=== PATIENT | male | born 1955 | race Hispanic/Latino ===

== ENCOUNTER 2018-04-03 19:49 | Emergency (ER) | payer SELFPAY ==
[2018-04-03] MEDS ORDERED: KETOROLAC 30 MG/ML INJ ONE (20:39)
[2018-04-03] MEDS ORDERED: NA CHLORIDE 0.9% 1,000 ML ONE (20:39)
[2018-04-03 21:08] LABS: Absolute Lymphocytes (CBC) 0.7 K/uL (0.7-4.9); Absolute Monocytes 0.7 K/uL (0.1-1.3); Absolute Neutrophil 15.6 K/uL (1.8-8.0); Basophils % 0.2 % (0-1.3); Hematocrit 46.1 % (39.6-49.0); MCV 86.6 fL (80-100); MPV 7.3 fL (7.6-11.3); Monocytes % 4.1 % (3.3-12.3); RBC Red Blood Cell Count 5.33 M/uL (4.33-5.43)
[2018-04-03 21:12] LABS: Potassium 3.7 mEq/L (3.6-5.0)
[2018-04-03 21:15] LABS: Bilirubin Total 0.7 mg/dL (0.3-1.2); Protein, Total 6.8 g/dL (6.0-8.3)
[2018-04-03 21:41] LABS: Urine White Blood Cell Casts OK
[2018-04-03 21:42] LABS: Blood Morphology Comment NOT SEEN (NOT SEEN); Platelet Estimate ADEQ
[2018-04-03 21:55] LABS: Urine Blood TRACE (NEG); Urine Glucose NEGATIVE (NEG); Urine Protein TRACE (NEG); Urine Specific Gravity >1.030 (1.005-1.030); Urine pH 5.5 (5.0-7.0)
--- NOTE | 2018-04-03 22:49 | ER ---
Nurse's Notes 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 He says he has pain in his neck and his stomach.". Transition of care: patient was not received from another setting of care. Onset of symptoms was April 03, 2018 at 16:00. Risk Assessment: Do you want to hurt yourself or someone else? Patient reports no desire to harm self or others. Initial Sepsis Screen: Does the patient meet any 2 criteria? No. Patient's initial sepsis screen is negative. Does the patient have a suspected source of infection? No. Patient's initial sepsis screen is negative. Care prior to arrival: None. 20:20 Method Of Arrival: Ambulatory lk1 20:20 Acuity: ZAHRA 3 lk1 Historical: - Allergies: 20:22 No Known Allergies; lk1 - PMHx: 20:22 None; lk1 - PSHx: 20:22 neck surgery; lk1 - Immunization history:: Adult Immunizations up to date. - Social history:: Smoking status: Patient/guardian denies using tobacco. Screenin:35 Abuse screen: Denies threats or abuse. Nutritional screening: No deficits noted. ea Tuberculosis screening: No symptoms or risk factors identified. Fall Risk None identified. Assessment: 20:35 General: Appears in no apparent distress. Behavior is calm, cooperative, appropriate ea for age. Pain: Complains of pain in headache Pain currently is 8 out of 10 on a pain scale. Quality of pain is described as aching. Neuro: Level of Consciousness is awake, alert, obeys commands, Oriented to person, place, time, situation, Electrician Master are equal bilaterally. Cardiovascular: Heart tones S1 S2 present Patient's skin is warm and dry. Respiratory: Airway is patent Respiratory effort is even, unlabored, Respiratory pattern is regular, symmetrical, Breath sounds are clear bilaterally. GI: No signs and/or symptoms were reported involving the gastrointestinal system. : No signs and/or symptoms were reported regarding the genitourinary system. EENT: No signs and/or symptoms were reported regarding the EENT system. Derm: Skin is dry, Skin is normal, Skin temperature is warm. Musculoskeletal: No signs and/or symptoms reported regarding the musculoskeletal system. 22:39 Reassessment: Patient and/or family updated on plan of care and expected duration. Pain ea level reassessed. Patient is alert, oriented x 3, equal unlabored respirations, skin warm/dry/pink. Patient denies pain at this time. Patient states feeling better. Patient states symptoms have improved. 23:07 Reassessment: Patient and/or family updated on plan of care and expected duration. Pain ea level reassessed. Patient is alert, oriented x 3, equal unlabored respirations, skin warm/dry/pink. Discharge instructions given to patient, verbalized the understanding of instructions. Patient denies pain at this time. Patient states feeling better. Patient states symptoms have improved. Vital Signs: 20:22 BP 112 / 77; Pulse 93; Resp 16; Temp 98.0(TE); Pulse Ox 99% on R/A; Weight 104.33 kg lk1 (R); Height 5 ft. 10 in. (177.80 cm) (R); Pain 8/10; 21:00 BP 129 / 86; Pulse 85; Resp 18; Pulse Ox 98% on R/A; Pain 0/10; ea 22:14 BP 121 / 79; Pulse 73; Resp 18; Pulse Ox 97% on R/A; Pain 0/10; ea 23:08 BP 113 / 78; Pulse 76; Resp 18; Temp 97.2(O); Pulse Ox 99% on R/A; Pain 0/10; ea 20:22 Body Mass Index 33.00 (104.33 kg, 177.80 cm) lk1 ED Course: 19:50 Patient arrived in ED. am2 20:21 Triage completed. lk1 20:24 Arm band placed on right wrist. lk1 20:26 Lamberto Orona MD is Attending Physician. tw4 20:28 Nilda Vilchis, DANIELA is Primary Nurse. ea 20:35 Patient has correct armband on for positive identification. Bed in low position. Call ea light in reach. Side rails up X2. 20:40 Initial lab(s) drawn, by me, sent to lab. Inserted saline lock: 18 gauge in right ea antecubital area, using aseptic technique. Blood collected. 23:07 No provider procedures requiring assistance completed. IV discontinued, intact, ea bleeding controlled, No redness/swelling at site. Pressure dressing applied. Administered Medications: 20:40 Drug: NS 0.9% 1000 ml Route: IV; Rate: 1 bolus; Site: right antecubital; ea 23:09 Follow up: Response: No adverse reaction; IV Status: Completed infusion; IV Intake: ea 1000ml 20:40 Drug: TORadol 30 mg Route: IVP; Site: right antecubital; ea 22:13 Follow up: Response: No adverse reaction; Pain is decreased ea 20:57 Drug: NS 0.9% 1000 ml Route: IV; Rate: 1 bolus; Site: right antecubital; ea 22:00 Follow up: Response: No adverse reaction; IV Status: Completed infusion; IV Intake: ea 1000ml Intake: 22:00 IV: 1000ml; Total: 1000ml. ea 23:09 IV: 1000ml; Total: 2000ml. ea Outcome: 22:48 Discharge ordered by twAndreia 23:08 Discharged to home ambulatory, with family. ea 23:08 Condition: improved 23:08 Discharge instructions given to patient, Instructed on discharge instructions, follow up and referral plans. Demonstrated understanding of instructions, follow-up care. 23:09 Patient left the ED. ea Signatures: Daphney Casey, RN RN Lashon Ambriz Elena, RN Lamberto Bowman ea, MD MD tw4
--- NOTE | 2018-04-03 22:49 | EDPHYS ---
Physician Documentation [facility] Unit Name: Rl Day Age: 62 yrs Sex: Male : 1955 Arrival Date: 04/03/2018 Time: 19:50 Bed 14 Private MD: ED Physician Lamberto Orona HPI: 04/03 22:56 This 62 yrs old Male presents to ER via Ambulatory with complaints of Heat tw4 Exposure. 22:56 Type of Exposure: heat. Context: The problem was sustained outdoors. Onset: The tw4 symptoms/episode began/occurred today. Symptoms: leg cramping. The patient has not experienced similar symptoms in the past. Historical: - Allergies: 20:22 No Known Allergies; lk1 - PMHx: 20:22 None; lk1 - PSHx: 20:22 neck surgery; lk1 - Immunization history:: Adult Immunizations up to date. - Social history:: Smoking status: Patient/guardian denies using tobacco. ROS: 22:56 Constitutional: Negative for fever, chills, and weight loss, Cardiovascular: Negative tw4 for chest pain, palpitations, and edema, Respiratory: Negative for shortness of breath, cough, wheezing, and pleuritic chest pain, Abdomen/GI: Negative for abdominal pain, nausea, vomiting, diarrhea, and constipation, Skin: Negative for injury, rash, and discoloration, Neuro: Negative for headache, weakness, numbness, tingling, and seizure, Psych: Negative for depression, anxiety, suicide ideation, homicidal ideation, and hallucinations. Exam: 22:56 Constitutional: This is a well developed, well nourished patient who is awake, alert, tw4 and in no acute distress. Head/Face: Normocephalic, atraumatic. ENT: Nares patent. No nasal discharge, no septal abnormalities noted. Tympanic membranes are normal and external auditory canals are clear. Oropharynx with no redness, swelling, or masses, exudates, or evidence of obstruction, uvula midline. Mucous membranes moist. Chest/axilla: Normal chest wall appearance and motion. Nontender with no deformity. No lesions are appreciated. Cardiovascular: Regular rate and rhythm with a normal S1 and S2. No gallops, murmurs, or rubs. Normal PMI, no JVD. No pulse deficits. Respiratory: Lungs have equal breath sounds bilaterally, clear to auscultation and percussion. No rales, rhonchi or wheezes noted. No increased work of breathing, no retractions or nasal flaring. Abdomen/GI: Soft, non-tender, with normal bowel sounds. No distension or tympany. No guarding or rebound. No evidence of tenderness throughout. Back: No spinal tenderness. No costovertebral tenderness. Full range of motion. MS/ Extremity: Pulses equal, no cyanosis. Neurovascular intact. Full, normal range of motion. Neuro: Awake and alert, GCS 15, oriented to person, place, time, and situation. Cranial nerves II-XII grossly intact. Motor strength 5/5 in all extremities. Sensory grossly intact. Cerebellar exam normal. Normal gait. Vital Signs: 20:22 BP 112 / 77; Pulse 93; Resp 16; Temp 98.0(TE); Pulse Ox 99% on R/A; Weight 104.33 kg lk1 (R); Height 5 ft. 10 in. (177.80 cm) (R); Pain 8/10; 21:00 BP 129 / 86; Pulse 85; Resp 18; Pulse Ox 98% on R/A; Pain 0/10; ea 22:14 BP 121 / 79; Pulse 73; Resp 18; Pulse Ox 97% on R/A; Pain 0/10; ea 23:08 BP 113 / 78; Pulse 76; Resp 18; Temp 97.2(O); Pulse Ox 99% on R/A; Pain 0/10; ea 20:22 Body Mass Index 33.00 (104.33 kg, 177.80 cm) [facility] MDM: 20:26 Patient medically screened. [facility] 22:56 Data reviewed: vital signs, nurses notes. Counseling: I had a detailed discussion with [facility] the patient and/or guardian regarding: the historical points, exam findings, and any diagnostic results supporting the discharge/admit diagnosis, lab results. Medication response: IVF hydration. Response to treatment: the patient's symptoms have resolved after treatment, the patient's condition has returned to base line, and as a result, I will discharge patient. Special discussion: I discussed with the patient/guardian in detail that at this point there is no indication for admission to the hospital. It is understood, however, that if the symptoms persist or worsen the patient needs to return immediately for re-evaluation. 04/03 20:36 Order name: CBC with Diff; Complete Time: 21:52 tw4 04/03 21:52 Interpretation: Normal except: WBC 17.2; MPV 7.3; HUNG% 90.7; LYM% 4.0; NEUT A 15.6. tw4 04/03 20:36 Order name: CMP; Complete Time: 21:52 tw4 04/03 21:52 Interpretation: Normal except: GLUC 164; BUN 30; GFR 73. tw4 04/03 21:39 Order name: Urine Dipstick--Ancillary (enter results) rg2 04/03 21:42 Order name: CBC Smear Scan; Complete Time: 21:52 EDMS Administered Medications: 20:40 Drug: NS 0.9% 1000 ml Route: IV; Rate: 1 bolus; Site: right antecubital; ea 23:09 Follow up: Response: No adverse reaction; IV Status: Completed infusion; IV Intake: ea 1000ml 20:40 Drug: TORadol 30 mg Route: IVP; Site: right antecubital; ea 22:13 Follow up: Response: No adverse reaction; Pain is decreased ea 20:57 Drug: NS 0.9% 1000 ml Route: IV; Rate: 1 bolus; Site: right antecubital; ea 22:00 Follow up: Response: No adverse reaction; IV Status: Completed infusion; IV Intake: ea 1000ml Disposition: 04/03/18 22:48 Discharged to Home. Impression: Exposure to excessive natural heat, Dehydration. - Condition is Stable. - Discharge Instructions: Dehydration, Adult, Heat-Related Illness. - Work release form, Medication Reconciliation Form, Thank You Letter, Antibiotic Education, Prescription Opioid Use form. - Follow up: Private Physician; When: As needed; Reason: Recheck today's complaints, Continuance of care, Re-evaluation by your physician. - Problem is new. - Symptoms have improved. Signatures: Dispatcher [employer] EDDaphney Alcala RN RN lk1 Nilda Vilchis RN RN ea Wadley, Terrence, MD MD tw4 Corrections: (The following items were deleted from the chart) 23:09 22:48 04/03/2018 22:48 Discharged to Home. Impression: Exposure to excessive natural ea heat; Dehydration. Condition is Stable. Forms are Medication Reconciliation Form, Thank You Letter, Antibiotic Education, Prescription Opioid Use. Follow up: Private Physician; When: As needed; Reason: Recheck today's complaints, Continuance of care, Re-evaluation by your physician. Problem is new. Symptoms have improved. tw4
== END 2018-04-03 23:09 | disposition home or self-care (01) ==
LOC: ER 19:49
DX: E86.0 Dehydration (principal); X30.XXXA Exposure to excessive natural heat, initial encounter; Y93.9 Activity, unspecified; Y92.89 Other specified places as the place of occurrence of the external cause
CPT/HCPCS: 36415; 80053; 81003; 85025; 96361; 96374; 99284; J7030

== ENCOUNTER 2024-02-15 19:37 | Emergency (ER) | payer OTHER, SELFPAY ==
--- OUTSIDE RECORDS SUMMARY | 2024-02-15 19:42 | XMS REPORT | Continuity of Care Document ---
Author Name Unknown Address [address] [place] [address] [facility] Address [address] [place] [address] Care Team Providers Care Clipper And Turner Name Role Phone PCP, PATIENT DOES NOT HAVE A Primary Care Physic sabiha Unavailable CLAUDINE SHAFER Attending Clinician Unavailable Claudine Shafer MD Attending Clinician [phone] Doctor Unassigned, Old Agency Attending Clinician U MARIELA Saucedo Attending Clinician UnavailMariela Bailey Attending Clinician [phone] [facility] Main Attending Clinician UnavailAMALIA Castellanos Attending Clinician Amalia Jones MD Attending Clinician +- [phone] Emily Hernandez MD Attending Clinician [phone] [facility] Surg Spec Procedure Attending Clinician Unavailable EMILY HERNANDEZ Attending Clinician Unavailable AMALIA TERESA Admitting Clinician Amalia Jones MD Admitting Clinician +- [phone] Payers Payer Name Policy Type Policy Number Effective Date Expirati on Date Source [employer] MED[employer]ARE [employer]VANTAGE [id number] 2022 00:00:00 Problems Condition Name Condition Details Condition Category Status Onset Date Resolution Date Last Treatment Date Treating Clinician Comments Source No known active problems No known active problems Disease [facility] Allergies, Adverse Reactions, Alerts Allergy Name Allergy Type Status Severity Reaction(s) Onset Date Inactive Date Treating Clinician Comments Source NO KNOWN ALLERGIE S Drug Class Active [facility] Social History Social Habit Start Date Stop Date Quantity Comments Source History of tobacco use Current smoker [facility] Gender identity [facility] Sexual orientation [facility] Exposure to SARS-CoV-2 (event) 2023-03-25 00:00:00 2023-04-04 13:11:00 Not sure [facility] History of Social function 2023-01-06 00:00:00 2023-01-06 00:00:00 [facility] Tobacco use and exposure 2022-04-05 00:00:00 2022-04-05 00:00:00 Smokeless tobacco non-user [facility] Sex Assigned At 1955 00:00:00 1955 00:00:00 [facility] Smoking Status Start Date Stop Date Source Ex-smoker 2022-04-05 00:00:00 2022-04-05 00:00:00 [facility] Medications Ordered Medication Name Filled Medication Name Start Date Stop Date Current Medication? Ordering Clinician Indication Dosage Frequency Signature (SIG) Comments Components Source phenylephri ne (VAZCULEP) injection 0.2 mg 2022-11 22:15: 00 09-20 22:04 :00 No [id number] .2mg [facility] alprostadiL (EDEX) injection 25 mcg 2022-11 22:15: 00 09-20 22:04 :00 No [id number] 25ug [facility] phenylephri ne (VAZCULEP) injection 0.2 mg 2022-11 22:15: 00 09-20 22:04 :00 No [id number] 200ug 0.2 mg (200 mcg), Intravenou s, ONCE, 1 dose, On Tue09/20/23 at 1615, Routine [facility] mirabegron (MYRBETRIQ) 25 mg tablet 04-04 00:00: 00 Yes [id number] 25mg Take 1 tablet by mouth in the morning. [facility] prednisoLON E acetate 1 % ophthalmic suspension drops 4-29 00:00: 00 Yes INSTILL 1 DROP INTO RIGHT EYE EVERY 6 HOURS WHILE AWAKE [facility] erythromyci n 5 mg/gram (0.5 %) ophthalmic ointment 331 00:00: 00 Yes APPLY A SMALL AMOUNT INTO RIGHT EYE EVERY 4 HOURS [facility] moxifloxaci n 0.5 % ophthalmic drops 330 00:00: 00 Yes INSTILL 1 DROP INTO RIGHT EYE EVERY 2 HOURS [facility] tamsulosin (FLOMAX) 0.4 mg 24 hr capsule 01-10 00:00: 00 Yes [id number] 01 .4mg Take 1 capsule by mouth in the morning. [facility] oxybutynin 10 mg 24 hr tablet 01-10 00:00: 00 04-04 00:00 :00 No [id number] 10mg Take 1 tablet by mouth in the morning. [facility] ketorolac 0.5 % ophthalmic solution 01-07 00:00: 00 Yes INSTILL1 DROP INTO LEFT EYE DAILY FOR 2 WEEKS [facility] lactated ringers IV infusion 1,000 mL 01-06 18:45: 00 01-06 21:21 :04 No 1000mL at 50 mL/hr, 1,000 mL, IV Infusion, CONTINUOUS , Starting on Carine 01/06/23 at 1245, Until Carine 01/06/23 at 1521, Routine, PACU [facility] ondansetron (ZOFRAN (PF)) injection 4 mg 01-06 18:41: 22 01-06 21:21 :04 No 4mg 4 mg, Slow IV Push, PRN, 1 dose, Starting on Carine 01/06/23 at 1241, Until Carine 223 at 1521, Routine, Nausea and Vomiting (N/V), PACU [facility] neomycin-po lymyxin-dex amethasone (MAXITROL) 3.5 mg/g-10,000 unit/g-0.1 % ophthalmic ointment 01-06 18:07: 00 01-06 18:25 :28 No PRN, Starting on Carine 01/06/23 at 1207, Until Carine 01/06/23 at 1225, Routine, Intra-op [facility] tetracaine (PONTOCAINE ) 0.5 % ophthalmic drops 01-06 18:04: 00 01-06 18:25 :28 No PRN, Starting on Carine 01/06/23 at 1204, Until Carine 01/06/23 at 1225, Routine, Intra-op [facility] eye block syringe 11 mL 01-06 18:03: 00 01-06 18:25 :28 No PRN, Starting on Carine 01/06/23 at 1203, Until Carine 01/06/23 at 1225, Intra-op [facility] gentamicin injection 01-06 18:03: 00 01-06 18:25 :28 No PRN, Starting on Carine 01/06/23 at 1203, Until Carine 01/06/23 at 1225, ELLIOTT, Intra-op [facility] NaCl 0.9% (NS) injection 01-06 18:02: 00 01-06 18:25 :28 No PRN, Starting on Carine 01/06/23 at 1202, Until Carine 01/06/23 at 1225, Routine, Intra-op [facility] water for irrigation irrigation solution 01-06 18:02: 00 01-06 18:25 :28 No PRN, Starting on Carine 01/06/23 at 1202, Until Carine 01/06/23 at 1225, Routine, Intra-op [facility] EPINEPHrine (PF) 1:1,000 (1 mg/mL) (ADRENALIN (PF)) injection 01-06 18:00: 00 01-06 18:25 :28 No PRN, Starting on Carine 01/06/23 at 1200, Until Carine 2/23/23 at 1225, Routine, Intra-op [facility] chondroitin sulf-sod hyaluronate (DUOVISC VISCO ELASTIC) intraocular injection 01-06 17:59: 00 01-06 18:25 :28 No PRN, Starting on Carine 01/06/23 at 1159, Until Carine 01/06/23 at 1225, Routine, Intra-op [facility] dexamethaso ne (DECADRON PHOSPHATE) injection 01-06 17:59: 00 01-06 18:25 :28 No PRN, Starting on Carine 01/06/23 at 1159, Until Carine 01/06/23 at 1225, Routine, Intra-op [facility] ceFAZolin (ANCEF) injection 01-06 17:59: 00 01-06 18:25 :28 No PRN, Starting on Carine 01/06/23 at 1159, Until Carine 01/06/23 at 1225, ELLIOTT, Intra-op [facility] balanced salt soln no.2 irrig. (BSS) ophthalmic solution 01-06 17:58: 00 01-06 18:25 :28 No PRN, Starting on Carine 01/06/23 at 1158, Until Carine 01/06/23 at 1225, Routine, Intra-op [facility] cyclopent 1%-tropic 1%-phenyl 2.5%-ketor 0.5% (MYDRIATIC #5) ophthalmic solution syringe 0.5 mL 01-06 17:45: 00 01-06 16:49 :00 No .5mL 0.5 mL, Left Eye, ONCE, 1 dose, On Carine 01/06/23 at 1145, Routine, DSU Pre-op [facility] tadalafiL (CIALIS) 20 mg tablet 2021-11 00:00: 00 Yes [id number] 20mg Take 1 tablet by mouth as needed for Erectile dysfunctio n (2 hrs prior to sexual activity, 2-3 times/week ). [facility] oxybutynin chloride 5 mg tablet 2022-1 1-17 00:00: 00 01-10 00:00 :00 No [id number] 5mg Take 1 tablet by mouth in the morning and 1 tablet in the evening. Do all this for 120 days. [facility] tamsulosin (FLOMAX) 0.4 mg 24 hr capsule 03-08 00:00: 00 01-10 23:49 :19 No [id number] 01 .4mg Take 1 capsule by mouth daily. [facility] Immunizations Ordered Immunization Name Filled Immunization Name Date Status Comments Source SARS-COV-2 COVID-19 PFIZER VACCINE 2021-02-19 00:00:00 Completed [facility] SARS-COV-2 COVID-19 PFIZER VACCINE 2021-02-19 00:00:00 Completed [facility] SARS-COV-2 COVID-19 PFIZER VACCINE 2021-02-19 00:00:00 Completed [facility] SARS-COV-2 COVID-19 PFIZER VACCINE 2021-02-19 00:00:00 Completed [facility] SARS-COV-2 COVID-19 PFIZER VACCINE 2021-02-19 00:00:00 Completed [facility] SARS-COV-2 COVID-19 PFIZER VACCINE 2021-02-19 00:00:00 Completed [facility] SARS-COV-2 COVID-19 PFIZER VACCINE 2021-02-19 00:00:00 Completed [facility] SARS-COV-2 COVID-19 PFIZER VACCINE 2021-02-19 00:00:00 Completed [facility] SARS-COV-2 COVID-19 PFIZER VACCINE 2021-02-19 00:00:00 Completed [facility] SARS-COV-2 COVID-19 PFIZER VACCINE 2021-02-19 00:00:00 Completed [facility] SARS-COV-2 COVID-19 PFIZER VACCINE 2021-02-19 00:00:00 Completed [facility] SARS-COV-2 COVID-19 PFIZER VACCINE 2021-02-19 00:00:00 Completed [facility] SARS-COV-2 COVID-19 PFIZER VACCINE 2021-02-19 00:00:00 Completed [facility] SARS-COV-2 COVID-19 PFIZER VACCINE 2021-02-19 00:00:00 Completed [facility] SARS-COV-2 COVID-19 PFIZER VACCINE 2021-02-19 00:00:00 Completed [facility] SARS-COV-2 COVID-19 PFIZER VACCINE 2021-02-19 00:00:00 Completed [facility] SARS-COV-2 COVID-19 PFIZER VACCINE 2021-02-19 00:00:00 Completed [facility] SARS-COV-2 COVID-19 PFIZER VACCINE 2021-02-19 00:00:00 Completed [facility] SARS-COV-2 COVID-19 PFIZER VACCINE 2021-02-19 00:00:00 Completed [facility] SARS-COV-2 COVID-19 PFIZER VACCINE 2021-02-19 00:00:00 Completed [facility] SARS-COV-2 COVID-19 PFIZER VACCINE 2021-02-19 00:00:00 Completed [facility] SARS-COV-2 COVID-19 PFIZER VACCINE 2021-02-19 00:00:00 Completed [facility] SARS-COV-2 COVID-19 PFIZER VACCINE 2021-02-19 00:00:00 Completed [facility] SARS-COV-2 COVID-19 PFIZER VACCINE 2021-02-19 00:00:00 Completed [facility] SARS-COV-2 COVID-19 PFIZER VACCINE 2021-02-19 00:00:00 Completed [facility] SARS-COV-2 COVID-19 PFIZER VACCINE 2021-02-19 00:00:00 Completed [facility] SARS-COV-2 COVID-19 PFIZER VACCINE 2021-02-19 00:00:00 Completed [facility] SARS-COV-2 COVID-19 PFIZER VACCINE 2021-01-28 00:00:00 Completed [facility] SARS-COV-2 COVID-19 PFIZER VACCINE 2021-01-28 00:00:00 Completed [facility] SARS-COV-2 COVID-19 PFIZER VACCINE 2021-01-28 00:00:00 Completed [facility] SARS-COV-2 COVID-19 PFIZER VACCINE 2021-01-28 00:00:00 Completed [facility] SARS-COV-2 COVID-19 PFIZER VACCINE 2021-01-28 00:00:00 Completed [facility] SARS-COV-2 COVID-19 PFIZER VACCINE 2021-01-28 00:00:00 Completed [facility] SARS-COV-2 COVID-19 PFIZER VACCINE 2021-01-28 00:00:00 Completed [facility] SARS-COV-2 COVID-19 PFIZER VACCINE 2021-01-28 00:00:00 Completed [facility] SARS-COV-2 COVID-19 PFIZER VACCINE 2021-01-28 00:00:00 Completed [facility] SARS-COV-2 COVID-19 PFIZER VACCINE 2021-01-28 00:00:00 Completed [facility] SARS-COV-2 COVID-19 PFIZER VACCINE 2021-01-28 00:00:00 Completed [facility] SARS-COV-2 COVID-19 PFIZER VACCINE 2021-01-28 00:00:00 Completed [facility] SARS-COV-2 COVID-19 PFIZER VACCINE 2021-01-28 00:00:00 Completed [facility] SARS-COV-2 COVID-19 PFIZER VACCINE 2021-01-28 00:00:00 Completed [facility] SARS-COV-2 COVID-19 PFIZER VACCINE 2021-01-28 00:00:00 Completed [facility] SARS-COV-2 COVID-19 PFIZER VACCINE 2021-01-28 00:00:00 Completed [facility] SARS-COV-2 COVID-19 PFIZER VACCINE 2021-01-28 00:00:00 Completed [facility] SARS-COV-2 COVID-19 PFIZER VACCINE 2021-01-28 00:00:00 Completed [facility] SARS-COV-2 COVID-19 PFIZER VACCINE 2021-01-28 00:00:00 Completed [facility] SARS-COV-2 COVID-19 PFIZER VACCINE 2021-01-28 00:00:00 Completed [facility] SARS-COV-2 COVID-19 PFIZER VACCINE 2021-01-28 00:00:00 Completed [facility] SARS-COV-2 COVID-19 PFIZER VACCINE 2021-01-28 00:00:00 Completed [facility] SARS-COV-2 COVID-19 PFIZER VACCINE 2021-01-28 00:00:00 Completed [facility] SARS-COV-2 COVID-19 PFIZER VACCINE 2021-01-28 00:00:00 Completed [facility] SARS-COV-2 COVID-19 PFIZER VACCINE 2021-01-28 00:00:00 Completed [facility] SARS-COV-2 COVID-19 PFIZER VACCINE 2021-01-28 00:00:00 Completed [facility] SARS-COV-2 COVID-19 PFIZER VACCINE 2021-01-28 00:00:00 Completed [facility] SARS-COV-2 COVID-19 PFIZER VACCINE Unknown Completed [facility] SARS-COV-2 COVID-19 PFIZER VACCINE Unknown Completed [facility] SARS-COV-2 COVID-19 PFIZER VACCINE Unknown Completed [facility] SARS-COV-2 COVID-19 PFIZER VACCINE Unknown Completed [facility] SARS-COV-2 COVID-19 PFIZER VACCINE Unknown Completed [facility] SARS-COV-2 COVID-19 PFIZER VACCINE Unknown Completed [facility] SARS-COV-2 COVID-19 PFIZER VACCINE Unknown Completed [facility] SARS-COV-2 COVID-19 PFIZER VACCINE Unknown Completed [facility] SARS-COV-2 COVID-19 PFIZER VACCINE Unknown Completed [facility] SARS-COV-2 COVID-19 PFIZER VACCINE Unknown Completed [facility] SARS-COV-2 COVID-19 PFIZER VACCINE Unknown Completed [facility] SARS-COV-2 COVID-19 PFIZER VACCINE Unknown Completed [facility] SARS-COV-2 COVID-19 PFIZER VACCINE Unknown Completed [facility] SARS-COV-2 COVID-19 PFIZER VACCINE Unknown Completed [facility] SARS-COV-2 COVID-19 PFIZER VACCINE Unknown Completed [facility] SARS-COV-2 COVID-19 PFIZER VACCINE Unknown Completed [facility] SARS-COV-2 COVID-19 PFIZER VACCINE Unknown Completed [facility] SARS-COV-2 COVID-19 PFIZER VACCINE Unknown Completed [facility] SARS-COV-2 COVID-19 PFIZER VACCINE Unknown Completed [facility] SARS-COV-2 COVID-19 PFIZER VACCINE Unknown Completed [facility] Vital Signs Vital Name Observation Time Observation Value Comments S marlyn Systolic blood pressure 2023-09-20 20:53:00 134 mm[Hg] [facility] Diastolic blood pressure 2023-09-20 20:53:00 79 mm[Hg] [facility] Heart rate 2023-09-20 20:53:00 77 /min [facility] Respiratory rate 2023-09-20 20:53:00 18 /min [facility] Body height 2023-09-20 20:53:00 177.8 cm [facility] Body weight 2023-09-20 20:53:00 108.41 kg [facility] BMI 2023-09-20 20:53:00 34.29 kg/m2 [facility] Systolic blood pressure 2023-07-05 16:23:00 139 mm[Hg] [facility] Diastolic blood pressure 2023-07-05 16:23:00 81 mm[Hg] [facility] Heart rate 2023-07-05 16:23:00 69 /min [facility] Body temperature 2023-07-05 16:23:00 36.44 [facility] Respiratory rate 2023-07-05 16:23:00 18 /min [facility] Body height 2023-07-05 16:23:00 177.8 cm [facility] Body weight 2023-07-05 16:23:00 110.768 kg [facility] BMI 2023-07-05 16:23:00 35.04 kg/m2 [facility] Oxygen saturation in Arterial blood by Pulse oximetry 2023-07-05 16:23:00 95 /min [facility] Systolic blood pressure 2023-04-04 18:34:00 128 mm[Hg] [facility] Diastolic blood pressure 2023-04-04 18:34:00 90 mm[Hg] [facility] Heart rate 2023-04-04 18:34:00 83 /min [facility] Oxygen saturation in Arterial blood by Pulse oximetry 2023-04-04 18:34:00 92 /min [facility] Body temperature 2023-04-04 18:32:00 36.5 [facility] Respiratory rate 2023-04-04 18:32:00 18 /min [facility] Body weight 2023-04-04 18:32:00 109.77 kg [facility] BMI 2023-04-04 18:32:00 34.72 kg/m2 [facility] Systolic blood pressure 2023-01-10 22:43:00 153 mm[Hg] [facility] Diastolic blood pressure 2023-01-10 22:43:00 83 mm[Hg] [facility] Heart rate 2023-01-10 22:42:00 84 /min [facility] Body temperature 2023-01-10 22:42:00 36.67 [facility] Respiratory rate 2023-01-10 22:42:00 18 /min [facility] Body height 2023-01-10 22:42:00 177.8 cm [facility] Body weight 2023-01-10 22:42:00 106.142 kg [facility] BMI 2023-01-10 22:42:00 33.58 kg/m2 [facility] Systolic blood pressure 2023-01-06 18:47:00 159 mm[Hg] [facility] Diastolic blood pressure 2023-01-06 18:47:00 94 mm[Hg] [facility] Heart rate 2023-01-06 18:47:00 58 /min [facility] Respiratory rate 2023-01-06 18:47:00 12 /min [facility] Oxygen saturation in Arterial blood by Pulse oximetry 2023-01-06 18:47:00 97 /min [facility] Body temperature 2023-01-06 18:27:00 36.17 [facility] Body height 2022-12-29 20:00:00 177.8 cm [facility] Body weight 2022-12-29 20:00:00 95.255 kg [facility] BMI 2022-12-29 20:00:00 30.13 kg/m2 [facility] Systolic blood pressure 2023-01-06 18:47:00 159 mm[Hg] [facility] Diastolic blood pressure 2023-01-06 18:47:00 94 mm[Hg] [facility] Heart rate 2023-01-06 18:47:00 58 /min [facility] Respiratory rate 2023-01-06 18:47:00 12 /min [facility] Oxygen saturation in Arterial blood by Pulse oximetry 2023-01-06 18:47:00 97 /min [facility] Body temperature 2023-01-06 18:27:00 36.17 [facility] Body height 2022-12-29 20:00:00 177.8 cm [facility] Body weight 2022-12-29 20:00:00 95.255 kg [facility] BMI 2022-12-29 20:00:00 30.13 kg/m2 [facility] Systolic blood pressure 2022-10-14 20:02:00 145 mm[Hg] [facility] Diastolic blood pressure 2022-10-14 20:02:00 84 mm[Hg] [facility] Heart rate 2022-10-14 20:02:00 73 /min [facility] Body temperature 2022-10-14 20:02:00 36.83 [facility] Respiratory rate 2022-10-14 20:02:00 18 /min [facility] Body height 2022-10-14 20:02:00 177.8 cm [facility] Body weight 2022-10-14 20:02:00 105.053 kg [facility] BMI 2022-10-14 20:02:00 33.23 kg/m2 [facility] Oxygen saturation in Arterial blood by Pulse oximetry 2022-10-14 20:02:00 95 /min [facility] Systolic blood pressure 2022-09-30 21:29:00 138 mm[Hg] [facility] Diastolic blood pressure 2022-09-30 21:29:00 83 mm[Hg] [facility] Heart rate 2022-09-30 21:29:00 72 /min [facility] 2022-09-30 21:29:00 18 /min [facility] Body height 2022-09-30 21:29:00 177.8 cm [facility] Body weight 2022-09-30 21:29:00 107.321 kg [facility] BMI 2022-09-30 21:29:00 33.95 kg/m2 [facility] Oxygen saturation in Arterial blood by Pulse oximetry 2022-09-30 21:29:00 97 /min [facility] Systolic blood pressure 2022-09-30 19:51:00 138 mm[Hg] [facility] Diastolic blood pressure 2022-09-30 19:51:00 83 mm[Hg] [facility] Heart rate 2022-09-30 19:51:00 72 /min [facility] Body temperature 2022-09-30 19:51:00 36.61 [facility] Respiratory rate 2022-09-30 19:51:00 18 /min [facility] Body height 2022-09-30 19:51:00 177.8 cm [facility] Body weight 2022-09-30 19:51:00 107.321 kg [facility] BMI 2022-09-30 19:51:00 33.95 kg/m2 [facility] Oxygen saturation in Arterial blood by Pulse oximetry 2022-09-30 19:51:00 97 /min [facility] Systolic blood pressure 2022-04-05 15:20:00 122 mm[Hg] [facility] Diastolic blood pressure 2022-04-05 15:20:00 77 mm[Hg] [facility] Heart rate 2022-04-05 15:20:00 70 /min [facility] Res[facility] rate 2022-04-05 15:20:00 17 /min [facility] Body height 2022-04-05 15:20:00 177.8 cm [facility] Body weight 2022-04-05 15:20:00 107.956 kg [facility] BMI 2022-04-05 15:20:00 34.15 kg/m2 [facility] Oxygen saturation in Arterial blood by Pulse oximetry 2022-04-05 15:20:00 95 /min [facility] Procedures Procedure Date / Time Performed Performing Clinician Source PATIENT QUESTIONNAIRE 2023-09-20 06:01:00 Doctor Unassigned, Old Agency [facility] POCT URINALYSIS AUTO 2023-07-05 18:11:00 Mariela Jhaveri [facility] ASSIGNMENT OF BENEFITS 2023-04-04 18:09:55 Doctor Unassigned, Old Agency [facility] POCT URINALYSIS AUTO 2023-01-10 22:42:00 Mariela Jhaveri [facility] POCT URINALYSIS AUTO 2023-01-10 22:39:00 Mariela Jhaveri [facility] PHACOEMULSIFICATION OF CATARACT WITH INTRAOCULAR LENS IMPLANT 2023-01-06 17:52:00 Amalia Teresa [facility] ASSIGNMENT OF BENEFITS 2022-12-30 17:54:24 Doctor Unassigned, Old Agency [facility] MEDICAL RELEASE/CLEARANCE FORMS 2022-12-09 06:01:00 Doctor Unassigned, Old Agency [facility] POCT URINALYSIS AUTO 2022-10-14 19:58:00 eC Claudine [facility] POCT URINALYSIS AUTO 2022-09-30 23:16:00 Claudine Shafer [facility] DISCLOSURE AND CONSENT, MEDICAL AND SURGICAL PROCEDURES 2022-09-30 06:01:00 Doctor Unassigned, Old Agency [facility] INSURANCE CORRESPONDENCE 2022-04-15 05:01:00 Doctor Unassigned, Old Agency [facility] HB ECG ROUTINE & RHYTHM STRIP 2022-04-05 15:26:53 Emily Hernandez [facility] Encounters Start Date/Time End Date/Time Encounter Type Admission Type Attending Clinicians Care Facility Care Department Encounter ID Source 2021-12-09 12:42:27 Outpatient [facility] [id number] [facility] 2024-01-17 11:30:00 2024-01-17 11:30:00 Outpatient R [facility] [id number] [facility] 2023-12-20 11:30:00 2023-12-20 11:30:00 [id number] 2023-11-25 00:00:00 2023-11-25 00:00:00 Telephone Ce [facility] [id number] [facility] 2023-09-23 00:00:00 2023-09-23 00:00:00 Telephone [facility] [id number] [facility] 2023-09-20 14:30:00 2023-09-20 16:14:09 [facility] [id number] [facility] 2023-09-20 14:30:00 2023-09-20 16:14:09 Outpatient [facility] [id number] [facility] 2023-09-20 00:00:00 2023-09-20 00:00:00 Orders Only Doctor Unassigned, Old Agency [facility] [id number] [facility] 2023-08-31 14:00:00 2023-08-31 14:00:00 Outpatient [facility] [id number] [facility] 2023-07-05 11:30:00 2023-07-05 11:59:09 Outpatient R KARISSA JHAVERITNEY [facility] [id number] [facility] 2023-07-05 11:30:00 2023-07-05 11:59:09 Office Visit [facility] 1.2.840.114 350.1.13.10 4.2.7.2.686 [id number] [facility] 2023-04-04 13:45:00 2023-04-04 14:02:48 [facility] [id number] [facility] 2023-04-04 13:45:00 2023-04-04 14:02:48 Office Visit Ramón [facility] 1.2.840.114 350.1.13.10 4.2.7.2.686 [id number] [facility] 2023-04-04 00:00:00 2023-04-04 00:00:00 Orders Only Doctor Unassigned, Old Agency [facility] 1.2.840.114 350.1.13.10 4.2.7.2.686 [id number] [id number] [facility] 2023-01-10 16:30:00 2023-01-10 17:04:08 Outpatient R KARISSA JHAVERITNEY [facility] [id number] [facility] 2023-01-10 16:30:00 2023-01-10 17:04:08 Office Visit Ramón [facility] BUILDING 1.2.840.114 350.1.13.10 4.2.7.2.686 [id number] [facility] 2023-01-10 07:45:00 2023-01-10 08:00:00 Flake Drier Visit Pob, Adc Lab Main Ramón [facility] BUILDING 1.2.840.114 350.1.13.10 4.2.7.2.686 [id number] [facility] 2023-01-06 10:26:00 2023-01-06 13:12:00 Outpatient R AMALIA TERESA [facility] [id number] [facility] 2023-01-06 10:26:00 2023-01-06 13:12:00 Hospital Encounter Amalia Teresa [facility] 1.2.840.114 350.1.13.10 4.2.7.2.686 [id number] [facility] 2023-01-06 12:27:00 2023-01-06 13:04:00 Surgery MalickAmalia gudino [facility] 1.2.840.114 350.1.13.10 4.2.7.2.686 [id number] [facility] 2022-12-30 00:00:00 2022-12-30 00:00:00 Orders Only Doctor Unassigned, Old Agency [facility] 1.2.840.114 350.1.13.10 4.2.7.2.686 [id number] [id number] [facility] 2022-12-09 00:00:00 2022-12-09 00:00:00 Telephone Emily Hernandez [facility] 1.2.840.114 350.1.13.10 4.2.7.2.686 [id number] [facility] 2022-12-09 00:00:00 2022-12-09 00:00:00 Orders Only Doctor Unassigned, Old Agency [facility] 1.2.840.114 350.1.13.10 4.2.7.2.686 [id number] [id number] [facility] 2022-11-11 00:00:00 2022-11-11 00:00:00 Telephone Ce Claudine [facility] BUILDING 1.2.840.114 350.1.13.10 4.2.7.2.686 [id number] [facility] 2022-11-09 00:00:00 2022-11-09 00:00:00 Telephone Ce Claudine [facility] BUILDING 1.2.840.114 350.1.13.10 4.2.7.2.686 [id number] [facility] 2022-10-14 14:00:00 2022-10-14 15:30:30 Outpatient R CLAUDINE SHAFER [facility] [id number] [facility] 2022-10-14 14:00:00 2022-10-14 15:30:30 Office Visit Claudine Shafer [facility] 1.2.840.114 350.1.13.10 4.2.7.2.686 [id number] [facility] 2022-10-05 00:00:00 2022-10-05 00:00:00 Telephone Ce Claudine [facility] 1.2.840.114 350.1.13.10 4.2.7.2.686 [id number] [facility] 2022-09-30 15:00:00 2022-09-30 15:32:05 Office Visit Claudine Shafer , Adc Surg Spec Procedure [facility] 1.2.840.114 350.1.13.10 4.2.7.2.686 [id number] [facility] 2022-09-30 14:45:00 2022-09-30 14:45:00 Office Visit Claudine Shafer [facility] 1.2.840.114 350.1.13.10 4.2.7.2.686 [id number] [facility] 2022-09-30 14:45:00 2022-09-30 14:08:08 [facility] [id number] [facility] 2022-09-30 00:00:00 2022-09-30 00:00:00 Orders Only Doctor Unassigned, Old Agency [facility] 1.2.840.114 350.1.13.10 4.2.7.2.686 [id number] [facility] 2022-09-30 00:00:00 2022-09-30 00:00:00 Telephone Ce Claudine [facility] BUILDING 1.2.840.114 350.1.13.10 4.2.7.2.686 [id number] [facility] 2022-04-29 00:00:00 2022-04-29 00:00:00 Patient Secure g [facility] MEDICAL OFFICE BUILDING 1.2.840.114 350.1.13.10 4.2.7.2.686 [id number] [facility] 2022-04-22 00:00:00 2022-04-22 00:00:00 Patient Secure g David [facility] BUILDING 1.2.840.114 350.1.13.10 4.2.7.2.686 [id number] [facility] 2022-04-21 07:39:55 2022-04-21 07:39:55 [facility] [id number] [facility] 2022-04-21 07:37:52 2022-04-21 07:38:00 [facility] [id number] [facility] 2022-04-17 00:00:00 2022-04-17 00:00:00 Patient Secure Msg Doctor Unassigned, Old Agency [facility] 1.840.114 350.1.13.10 4.2.7.2.686 [id number] [id number] [facility] 2022-04-15 00:00:00 2022-04-15 00:00:00 Orders Only Doctor Unassigned, Old Agency [facility] 1.2840.114 350.1.13.10 4.2.7.2.686 [id number] [id number] [facility] 2022-04-05 10:20:00 2022-04-05 10:41:39 [facility] 1..840.114 350.1.13.10 4.2.7.2.686 [id number] [facility] 2022-04-05 10:20:00 2022-04-05 10:41:39 Outpatient R [facility] [id number] [facility] 2022-04-05 10:20:00 2022-04-05 10:41:39 Outpatient R [facility] [id number] [facility] 2022-03-08 13:45:00 2022-03-08 15:50:21 Outpatient R CLAUDINE SHAFER [facility] [place] [id number] [facility] 2022-03-08 13:45:00 2022-03-08 15:50:21 Office Visit Claudine Shafer Rm, Adc Surg Spec [facility] 1..840.114 350.1.13.10 4.2.7.2.686 [id number] [facility] 2022-03-08 13:45:00 2022-03-08 15:50:21 Outpatient R CLAUDINE SHAFER [facility] [place] [id number] [facility] 2022-03-08 00:00:00 2022-03-08 00:00:00 Patient Secure Msg Ce [facility] 1.84.114 350.1.13.10 4.2.7.2.686 [id number] [facility] 2022-03-08 00:00:00 2022-03-08 00:00:00 Orders Only Doctor Unassigned, Old Agency [facility] 1.2840.114 350.1.13.10 4.2.7.2.686 [id number] [facility] 2022-02-04 09:30:00 2022-02-04 10:55:08 Office Visit Ce [facility] 1.84.114 350.1.13.10 4.2.7.2.686 [id number] [facility] 2022-02-04 09:30:00 2022-02-04 10:55:08 [facility] [id number] [facility] 2022-02-04 09:30:00 2022-02-04 10:55:08 [facility] [id number] 2022-02-04 00:00:00 2022-02-04 00:00:00 Orders Only Doctor Unassigned, Old Agency [facility] 1.284.114 350.1.13.10 4.2.7.2.686 [id number] [facility] Results Test Description Test Time Test Comments Results Result Co mments [facility] [id number] 18:13:00 * Test Item Value Reference Range Interpretation Comme nts POCT U SP GRAV (test code = 3255) 1.025 mg/dl 1.005-1.025 POCT PH U (test code = 3254) 7 mg/dl 5-8 POCT U LEUK EST (test code = 3263) negative Negative - Negative POCT U NIT (test code = 3262) negative Negative - Negati ve POCT U PROT (test code = 3259) negative Negative - Negative POCT U GLU (test code = 3256) negative Negative - Negati ve POCT U KETONE (test code = 3258) negative Negative - Negative POCT U UROBILI (test code = 3260) 0.2 mg/dl 0.2-1 POCT U BILI (test code = 3261) negative Negative - Negative POCT U BLD (test code = 3257) negative Negative - Negati ve POCT U COLOR (test code = 3266) yellow POCT U APPEAR (test code = 3267) clear Lab Interpretation (test cod e = 01236-9) Normal [facility] acute hospital URINALYSIS, [id number] 22:43:00 * Test Item Value Reference Range Interpretation Comme nts POCT U SP GRAV (test code = 3255) 1.030 mg/dl 1.005-1.025 A POCT PH U (test code = 3254) 5.5 mg/dl 5-8 POCT U LEUK EST (test code = 3263) negative Negative - Negative POCT U NIT (test code = 3262) negative Negative - Negati ve POCT U PROT (test code = 3259) negaitve Negative - Negative POCT U GLU (test code = 3256) negative Negative - Negati ve POCT U KETONE (test code = 3258) negative Negative - Negative POCT U UROBILI (test code = 3260) 1.0 mg/dl 0.2-1 POCT U BILI (test code = 3261) small Negative - Negative POCT U BLD (test code = 3257) small Negative - Negati ve POCT U COLOR (test code = 3266) yellow POCT U APPEAR (test code = 3267) clear Lab Interpretation (test cod e = [id number]) [facility] [id number] 22:43:00 * Test Item Value Reference Range Interpretation Comme nts POCT U SP GRAV (test code = 3255) 1.030 mg/dl 1.005-1.025 A POCT PH U (test code = 3254) 5.5 mg/dl 5-8 POCT U LEUK EST (test code = 3263) negative Negative - Negative POCT U NIT (test code = 3262) negative Negative - Negati ve POCT U PROT (test code = 3259) negaitve Negative - Negative POCT U GLU (test code = 3256) negative Negative - Negati ve POCT U KETONE (test code = 3258) negative Negative - Negative POCT U UROBILI (test code = 3260) 1.0 mg/dl 0.2-1 POCT U BILI (test code = 3261) small Negative - Negative POCT U BLD (test code = 3257) small Negative - Negati ve POCT U COLOR (test code = 3266) yellow POCT U APPEAR (test code = 3267) clear Lab Interpretation (test cod e = [id number]) Abnormal [facility] acute hospital URINALYSIS, [id number] 22:41:00 * Test Item Value Reference Range Interpretation Comme nts POCT U SP GRAV (test code = 3255) 1.005-1.025 POCT PH U (test code = 3254) 5.5 mg/dl 5-8 POCT U LEUK EST (test code = 3263) Negative Negative - Negative POCT U NIT (test code = 3262) Negative Negative - Negati ve POCT U PROT (test code = 3259) Negative Negative - Negat khoi POCT U GLU (test code = 3256) Negative Negative - Negati ve POCT U KETONE (test code = 3258) Negative Negative - Negative POCT U UROBILI (test code = 3260) 1.0 mg/dl 0.2-1 POCT U BILI (test code = 3261) Small Negative - Negat khoi POCT U BLD (test code = 3257) Small Negative - Negati ve POCT U COLOR (test code = 3266) Yellow POCT U APPEAR (test code = 3267) Clear [facility] acute hospital URINALYSIS, [id number] 22:41:00 * Test Item Value Reference Range Interpretation Comme nts POCT U SP GRAV (test code = 3255) 1.005-1.025 POCT PH U (test code = 3254) 5.5 mg/dl 5-8 POCT U LEUK EST (test code = 3263) Negative Negative - Negative POCT U NIT (test code = 3262) Negative Negative - Negati ve POCT U PROT (test code = 3259) Negative Negative - Negat khoi POCT U GLU (test code = 3256) Negative Negative - Negati ve POCT U KETONE (test code = 3258) Negative Negative - Negative POCT U UROBILI (test code = 3260) 1.0 mg/dl 0.2-1 POCT U BILI (test code = 3261) Small Negative - Negat khoi POCT U BLD (test code = 3257) Small Negative - Negati ve POCT U COLOR (test code = 3266) Yellow POCT U APPEAR (test code = 3267) Clear [facility] acute hospital URINALYSIS, [id number] 19:59:00 * Test Item Value Reference Range Interpretation Comme nts POCT U SP GRAV (test code = 3255) 1.025 mg/dl 1.005-1.025 POCT PH U (test code = 3254) 7.0 mg/dl 5-8 POCT U LEUK EST (test code = 3263) Negative Negative - Negative POCT U NIT (test code = 3262) Negative Negative - Negati ve POCT U PROT (test code = 3259) Negative Negative - Negative POCT U GLU (test code = 3256) Negative Negative - Negati ve POCT U KETONE (test code = 3258) Negative Negative - Negative POCT U UROBILI (test code = 3260) 1.0 mg/dl 0.2-1 POCT U BILI (test code = 3261) Negative Negative - Negative POCT U BLD (test code = 3257) Negative Negative - Negati ve POCT U COLOR (test code = 3266) yellow POCT U APPEAR (test code = 3267) clear General acute hospital URINALYSIS, [id number] 19:59:00 * Test Item Value Reference Range Interpretation Comme nts POCT U SP GRAV (test code = 3255) 1.025 mg/dl 1.005-1.025 POCT PH U (test code = 3254) 7.0 mg/dl 5-8 POCT U LEUK EST (test code = 3263) Negative Negative - Negative POCT U NIT (test code = 3262) Negative Negative - Negati ve POCT U PROT (test code = 3259) Negative Negative - Negative POCT U GLU (test code = 3256) Negative Negative - Negati ve POCT U KETONE (test code = 3258) Negative Negative - Negative POCT U UROBILI (test code = 3260) 1.0 mg/dl 0.2-1 POCT U BILI (test code = 3261) Negative Negative - Negative POCT U BLD (test code = 3257) Negative Negative - Negati ve POCT U COLOR (test code = 3266) yellow POCT U APPEAR (test code = 3267) clear [facility], [id number] 23:16:00 * Test Item Value Reference Range Interpretation Comme nts POCT U SP GRAV (test code = 3255) 1.025 mg/dl 1.005-1.025 POCT PH U (test code = 3254) 7.0 mg/dl 5-8 POCT U LEUK EST (test code = 3263) Negative Negative - Negative POCT U NIT (test code = 3262) Negative Negative - Negati ve POCT U PROT (test code = 3259) Negative Negative - Negative POCT U GLU (test code = 3256) Negative Negative - Negati ve POCT U KETONE (test code = 3258) Negative Negative - Negative POCT U UROBILI (test code = 3260) 2.0 mg/dl 0.2-1 A POCT U BILI (test code = 3261) Negative Negative - Negative POCT U BLD (test code = 3257) Negative Negative - Negati ve POCT U COLOR (test code = 3266) Yellow POCT U APPEAR (test code = 3267) Clear Lab Interpretation (test cod e = [id number]) Abnormal [facility], [id number] 23:16:00 * Test Item Value Reference Range Interpretation Comme nts POCT U SP GRAV (test code = 3255) 1.025 mg/dl 1.005-1.025 POCT PH U (test code = 3254) 7.0 mg/dl 5-8 POCT U LEUK EST (test code = 3263) Negative Negative - Negative POCT U NIT (test code = 3262) Negative Negative - Negati ve POCT U PROT (test code = 3259) Negative Negative - Negative POCT U GLU (test code = 3256) Negative Negative - Negati ve POCT U KETONE (test code = 3258) Negative Negative - Negative POCT U UROBILI (test code = 3260) 2.0 mg/dl 0.2-1 A POCT U BILI (test code = 3261) Negative Negative - Negative POCT U BLD (test code = 3257) Negative Negative - Negati ve POCT U COLOR (test code = 3266) Yellow POCT U APPEAR (test code = 3267) Clear Lab Interpretation (test cod e = [id number]) Abnormal [facility] Notes Date/Time Note Provider Source 2023-11-25 14:39:04 [id number] cZCeIAf/HwQQo d3icjHSvh+P9jcmy745CPmvcLp8nk2y20 07-12-11T14:39:04 RX clarified with men MD- states they will get RX ready and notify patient. 80524-9Hmbbunguk encounter [id number]:39:27Telephon e encounter [id number]. 7.2.954568|[id number] for patient meuu48335-1LpbbVKZIWCPPRLUVtpcexv ed C-CDA narrative [id number] A Hall RN[address] P[id number] 959RNNOQTKTUVGTRYUWCMVOEX7778-17- 12T14:39:271.2.840.834400.1.72.3. 15|1.2.840.590338.1.13.104.2.7.2. [id number] Laura Pitts RN [facility] 2023-11-25 14:27:26 [id number]+M32Fg6BtavJ8 XC+XRw9ahZJa5 PtPCuR9OwKrgdlTc58/1HZbcAtZN0ZU08 07-12-11:27:26 Pt called about a prescription that he is still having problems receiving. Pt seen Dr 09/20/23 Pt states he has paid for the prescription and the pharmacy is unable to mail the prescription due to missing information. Pharmacy [phone] assist 52448-3Mqsbxgznu encounter [id number]:31:35Telephon e encounter NoteTXT1.2.840.213720.1.13.104.2. 7.2.311881|[id number] for patient tzxe78413-9ReusHXOLYNOADIMAcsjvdv ed C-CDA narrative [id number] [address] Ll[id number] 334DPDSAMIYKTEDIHTAFXELEQ7398-54- 12T14:31:351.2.840.853482.1.72.3. 15|1.2.840.722424.1.13.104.2.7.2. [id number] Angela Gerardo [facility]"
--- NOTE | 2024-02-15 20:46 | RAD REPORT ---
EXAM DESCRIPTION: RAD - Femur Left - 02/15/2024 8:11 pm CLINICAL HISTORY: PAIN COMPARISON: No comparisons TECHNIQUE: Left femur, 2 views. FINDINGS: Motion artifact somewhat limits evaluation. No fracture is identified. There is no disloc ation or periosteal reaction noted. No acute or suspicious bony finding. IMPRESSION: Negative left femur examination.
--- NOTE | 2024-02-15 20:46 | RAD REPORT ---
EXAM DESCRIPTION: US - Extremity Venous Uni Ltd - 02/15/2024 8:17 pm CLINICAL HISTORY: Pain COMPARISON: None. TECHNIQUE: Real-time sonographic evaluation of the left lower extremity deep venous system was perfo rmed. FINDINGS: Normal compressibility, flow augmentation, phasic flow and spontaneous flow is identified in the left lower extremity deep venous system. No intraluminal filling defects seen. IMPRESSION: No DVT in the left lower extremity.
--- NOTE | 2024-02-15 21:02 | ER ---
Nurse's Notes [facility] Name: Rl Day Age: 68 yrs Sex: Male : 1955 Arrival Date: 02/15/2024 Time: 19:37 Bed 12 Private MD: Diagnosis: Strain of adductor muscle, fascia and tendon of left thigh Presentation: 02/14 19:49 Chief complaint: Patient states: "2 weeks ago I started having left knee pain that mb9 radiates to my upper leg and back". Coronavirus screen: At this time, the client does not indicate any symptoms associated with coronavirus-19. Ebola Screen: No symptoms or risks identified at this time. Initial Sepsis Screen: Does the patient meet any 2 criteria? No. Patient's initial sepsis screen is negative. Does the patient have a suspected source of infection? No. Patient's initial sepsis screen is negative. Risk Assessment: Do you want to hurt yourself or someone else? Patient reports no desire to harm self or others. Onset of symptoms was February 15, 2024. 19:49 Method Of Arrival: Ambulatory mb9 19:49 Acuity: ZAHRA 4 mb9 Triage Assessment: 19:51 General: Appears in no apparent distress. Behavior is calm, cooperative. Pain: mb9 Complains of pain in left knee Pain radiates to back and left leg. EENT: No signs and/or symptoms were reported regarding the EENT system. Neuro: Egan Agitation-Sedation Scale (RASS): 0 - Alert and Calm Level of Consciousness is awake, alert, obeys commands, Oriented to person, place, time, situation, Appropriate for age. Cardiovascular: Patient's skin is warm and dry. Respiratory: Airway is patent Respiratory effort is even, unlabored, Respiratory pattern is regular, symmetrical. GI: No signs and/or symptoms were reported involving the gastrointestinal system. : No signs and/or symptoms were reported regarding the genitourinary system. Derm: Skin is pink, warm \\T\\ dry. Musculoskeletal: Range of motion: intact in all extremities. Historical: - Allergies: 19:51 No Known Allergies; mb9 - Home Meds: 19:51 None [Active]; mb9 - PMHx: 19:51 None; mb9 - PSHx: 19:51 None; mb9 - Immunization history:: Adult Immunizations up to date. - Infectious Disease History:: Denies. - Social history:: Smoking status: Patient denies any tobacco usage or history of. Screenin:54 [facility] ED Fall Risk Assessment (Adult) History of falling in the last 3 months, mb9 including since admission No falls in past 3 months (0 pts) Confusion or Disorientation No (0 pts) Intoxicated or Sedated No (0 pts) Impaired Gait No (0 pts) Mobility Assist Device Used No (0 pt) Altered Elimination No (0 pt) Score/Fall Risk Level 0 - 2 = Low Risk Oriented to surroundings, Maintained a safe environment, Educated pt \\T\\ family on fall prevention, incl call for assistance when getting out of bed. Abuse screen: Denies threats or abuse. Nutritional screening: No deficits noted. Tuberculosis screening: No symptoms or risk factors identified. Assessment: 19:55 Reassessment: see triage assessment. mb9 Vital Signs: 19:49 BP 155 / 86; Pulse 82; Resp 18; Temp 98(TE); Pulse Ox 96% on R/A; Weight 108.86 kg; mb9 Height 5 ft. 10 in. ; Pain 9/10; 19:49 Body Mass Index 34.44 (108.86 kg, 177.8 cm) mb9 19:49 Pain Scale: Adult mb9 ED Course: 19:44 Patient arrived in ED. im 19:48 Adia Carcamo FNP-C is PHCP. kb 19:48 Patrick Henry MD is Attending Physician. kb 19:48 Arm band placed on. mb9 19:51 Triage completed. mb9 19:54 Melba Denson RN is Primary Nurse. mb9 19:54 Placed in gown. Bed in low position. Call light in reach. Side rails up X 1. Provided mb9 Education on: press call light if needing anything. Client placed on continuous cardiac and pulse oximetry monitoring. NIBP monitoring applied. Door closed. Noise minimized. Warm blanket given. 19:55 No provider procedures requiring assistance completed. mb9 20:00 Radiology exam delayed due to patient is not appropriately dressed for the exam at this az time. 20:12 Femur Left XRAY In Process Unspecified. EDMS 20:19 US Extremity Venous Unilateral Ltd In Process Unspecified. EDMS 21:23 Patient did not have IV access during this emergency room visit. cm10 Administered Medications: No medications were administered Medication: 19:54 VIS not applicable for this client. mb9 Outcome: 21:01 Discharge ordered by . akua 21:24 Discharged to home ambulatory, with significant other, cm10 21:24 Condition: good 21:24 Discharge instructions given to patient, Instructed on discharge instructions, follow up and referral plans. medication usage, Demonstrated understanding of instructions, follow-up care, medications, Prescriptions given X 2, 21:24 Patient left the ED. cm10 Signatures: Dispatcher [employer] EDMS Adia Carcamo, ART CONSULTANT-C ART CONSULTANT-Ckb Zoe Hansen, Mleba Juarez RN RN mb9 Shalonda Sanon Clarissa RN RN cm10
--- NOTE | 2024-02-15 21:02 | EDPHYS ---
Physician Documentation [facility] Name: Rl Day Age: 68 yrs Sex: Male : 1955 Arrival Date: 02/15/2024 Time: 19:37 Bed 12 Private MD: ED Physician Patrick Henry HPI: 02/14 21:19 This 68 yrs old Male presents to ER via Ambulatory with complaints of Thigh kb pain, Low Back Pain. 21:19 Pt is a 68 year old male who presents for left thigh pain that started 2 weeks ago. kb States the pain starts towards the knee and radiates up to hip. States the pain is worse with movement or lifting up leg. . Historical: - Allergies: 19:51 No Known Allergies; mb9 - Home Meds: 19:51 None [Active]; mb9 - PMHx: 19:51 None; mb9 - PSHx: 19:51 None; mb9 - Immunization history:: Adult Immunizations up to date. - Infectious Disease History:: Denies. - Social history:: Smoking status: Patient denies any tobacco usage or history of. ROS: 21:18 Constitutional: As per HPI kb Exam: 21:18 Constitutional: This is a well developed, well nourished patient who is awake, alert, kb and in no acute distress. Head/Face: Normocephalic, atraumatic. ENT: Moist Mucous membranes Cardiovascular: Regular rate Respiratory: Respirations even and unlabored. No increased work of breathing. Talking in full sentences Abdomen/GI: Soft, non-tender. No distention Skin: Warm, dry with normal turgor. Normal color. MS/ Extremity: Pulses equal, no cyanosis. Neurovascular intact. Full, normal range of motion. Neuro: Awake and alert, GCS 15, oriented to person, place, time, and situation. Moves all extremities. Normal gait. Vital Signs: 19:49 BP 155 / 86; Pulse 82; Resp 18; Temp 98(TE); Pulse Ox 96% on R/A; Weight 108.86 kg; mb9 Height 5 ft. 10 in. ; Pain 9/10; 19:49 Body Mass Index 34.44 (108.86 kg, 177.8 cm) mb9 19:49 Pain Scale: Adult mb9 MDM: 19:48 Patient medically screened. kb 21:18 Differential diagnosis: strain, dvt, fracture. Data reviewed: vital signs, nurses kb notes. Historians other than the Patient: Spouse/Significant Other: spouse. Counseling: I had a detailed discussion with the patient and/or guardian regarding the historical points, exam findings, and any diagnostic results supporting the discharge/admit diagnosis, radiology results, the need for outpatient follow up, a family practitioner, to return to the emergency department if symptoms worsen or persist or if there are any questions or concerns that arise at home. 02/14 19:52 Order name: Femur Left XRAY; Complete Time: 20:48 kb 02/14 19:52 Order name: US Extremity Venous Unilateral Ltd; Complete Time: 20:48 kb Administered Medications: No medications were administered Disposition Summary: 02/15/24 21:01 Discharge Ordered Notes: Location: Home kb Condition: Stable kb Diagnosis - Strain of adductor muscle, fascia and tendon of left thigh kb Followup: kb - With: Emergency Department - When: As needed - Reason: Worsening of condition Followup: kb - With: Private Physician - When: 2 - 3 days - Reason: Recheck today's complaints, Continuance of care, Re-evaluation by your physician Discharge Instructions: - Discharge Summary Sheet kb - Muscle Strain, Toip-he-Wfad kb Forms: - Work release form kb - Medication Reconciliation Form kb - Thank You Letter kb - Antibiotic Education kb - Prescription Opioid Use kb - Patient Portal Instructions kb - Leadership Thank You Letter kb Prescriptions: - Diclofenac Sodium 75 mg Oral tablet, delayed release (enteric coated) - take 1 tablet ORAL route 2 times per day As needed; 30 tablet; Refills: 0, kb Product Selection Permitted - orphenadrine citrate 100 mg Oral Tablet Sustained Release - take 1 tablet ORAL route 2 times per day As needed; 20 tablet; Refills: 0, kb Product Selection Permitted Signatures: Dispatcher [employer] EDAdia Ortega FNP-C FNP-Ckb Breneman, Mary Beth RN RN mb9 Corrections: (The following items were deleted from the chart) 19:52 19:52 Extremity Venous Uni Ltd+[email or web address] ordered. EDMS EDMS
[2024-02-15 21:47] VITALS: BP 155/86; TEMP 98; O2SAT 96
== END 2024-02-15 21:24 | disposition home or self-care (01) ==
LOC: ER 19:37
DX: S76.212A Strain of adductor muscle, fascia and tendon of left thigh, initial encounter (principal)
CPT/HCPCS: 93971

== ENCOUNTER 2024-03-12 09:27 | Emergency (ER) | payer OTHER ==
--- OUTSIDE RECORDS SUMMARY | 2024-03-12 09:31 | XMS REPORT | Continuity of Care Document ---
Author Name Unknown Address [address] [place] [address] [facility] Address [address] [place] [address] Care Team Providers Care Despatch Clerk Name Role Phone PCP, PATIENT DOES NOT HAVE A Primary Care Physic sabiha Unavailable CLAUDINE ENCINAS Attending Clinician Unavailable Claudine Encinas MD Attending Clinician [phone] Doctor Unassigned, [place] Attending Clinician U MARIELA Saucedo Attending Clinician UnavailMariela Bailey Attending Clinician [phone] [facility] Lab Main Attending Clinician UnavailAMALIA Castellanos Attending Clinician Amalia Jones MD Attending Clinician [phone] Emily Hernandez MD Attending Clinician [facility] Surg Spec Procedure Attending Clinician Unavailable EMILY HERNANDEZ Attending Clinician Unavailable AMALIA FRAGA Admitting Clinician Amalia Jones MD Admitting Clinician [phone] Payers Payer Name Policy Type Policy Number Effective Date Expirati on Date Source [employer] MEDICARE ADVANTAGE [id number] 2022 00:00:00 Problems Condition Name Condition Details Condition Category Status Onset Date Resolution Date Last Treatment Date Treating Clinician Comments Source No known active problems No known active problems Disease [facility] Allergies, Adverse Reactions, Alerts Allergy Name Allergy Type Status Severity Reaction(s) Onset Date Inactive Date Treating Clinician Comments Source NO KNOWN ALLERGIE S Drug Class Active [facility] Social History Social Habit Start Date Stop Date Quantity Comments Source History of tobacco use Current smoker [facility] Gender identity [facility] Sexual orientation [facility] Exposure to SARS-CoV-2 (event) 2023-03-25 00:00:00 2023-04-04 13:11:00 Not sure [facility] History of Social function 2023-01-06 00:00:00 2023-01-06 00:00:00 [facility] Tobacco use and exposure 2022-04-05 00:00:00 2022-04-05 00:00:00 Smokeless tobacco non-user [facility] Sex Ass[birth year] At 1955 00:00:00 1955 00:00:00 [facility] Smoking Status Start Date Stop Date Source Ex-smoker 2022-04-05 00:00:00 2022-04-05 00:00:00 U [facility] Medications Ordered Medication Name Filled Medication Name Start Date Stop Date Current Medication? Ordering Clinician Indication Dosage Frequency Signature (SIG) Comments Components Source phenylephri ne (VAZCULEP) injection 0.2 mg 2022-11 22:15: 00 09-20 22:04 :00 No [id number] .2mg [facility] alprostadiL (EDEX) injection 25 mcg 2022-11 22:15: 00 09-20 22:04 :00 No [id number] 25ug [facility] phenylephri ne (VAZCULEP) injection 0.2 mg 2022-11 22:15: 00 09-20 22:04 :00 No [id number] 200ug 0.2 mg (200 mcg), Intravenou s, ONCE, 1 dose, On Tue09/20/23 at 1615, Routine [facility] mirabegron (MYRBETRIQ) 25 mg tablet 04-04 00:00: 00 Yes [id number] 25mg Take 1 tablet by mouth in the morning. [facility] prednisoLON E acetate 1 % ophthalmic suspension drops 4-29 00:00: 00 Yes INSTILL 1 DROP INTO RIGHT EYE EVERY 6 HOURS WHILE AWAKE [facility] erythromyci n 5 mg/gram (0.5 %) ophthalmic ointment 3-31 00:00: 00 Yes APPLY A SMALL AMOUNT INTO RIGHT EYE EVERY 4 HOURS [facility] moxifloxaci n 0.5 % ophthalmic drops 3-30 00:00: 00 Yes INSTILL 1 DROP INTO RIGHT EYE EVERY 2 HOURS [facility] tamsulosin (FLOMAX) 0.4 mg 24 hr capsule 01-10 00:00: 00 Yes [id number] 01 .4mg Take 1 capsule by mouth in the morning. [facility] oxybutynin 10 mg 24 hr tablet 01-10 00:00: 00 04-04 00:00 :00 No [id number] 10mg Take 1 tablet by mouth in the morning. [facility] ketorolac 0.5 % ophthalmic solution 01-07 00:00: 00 Yes INSTILL1 DROP INTO LEFT EYE DAILY FOR 2 WEEKS [facility] lactated ringers IV infusion 1,000 mL 01-06 18:45: 00 01-06 21:21 :04 No 1000mL at 50 mL/hr, 1,000 mL, IV Infusion, CONTINUOUS , Starting on Carine 01/06/23 at 1245, Until Carine 01/06/23 at 1521, Routine, PACU [facility] ondansetron (ZOFRAN (PF)) injection 4 mg 01-06 18:41: 22 01-06 21:21 :04 No 4mg 4 mg, Slow IV Push, PRN, 1 dose, Starting on Carine 01/06/23 at 1241, Until Carine 01/06/23 at 1521, Routine, Nausea and Vomiting (N/V), PACU [facility] neomycin-po lymyxin-dex amethasone (MAXITROL) 3.5 mg/g-10,000 unit/g-0.1 % ophthalmic ointment 01-06 18:07: 00 01-06 18:25 :28 No PRN, Starting on Carine 01/06/23 at 1207, Until Carine 01/06/23 at 1225, Routine, Intra-op [facility] tetracaine (PONTOCAINE ) 0.5 % ophthalmic drops 01-06 18:04: 00 01-06 18:25 :28 No PRN, Starting on Carine 01/06/23 at 1204, Until Carine 01/06/23 at 1225, Routine, Intra-op [facility] eye block syringe 11 mL 01-06 18:03: 00 01-06 18:25 :28 No PRN, Starting on Carine 01/06/23 at 1203, Until Carine 01/06/23 at 1225, Intra-op [facility] gentamicin injection 01-06 18:03: 00 01-06 18:25 :28 No PRN, Starting on Carine 01/06/23 at 1203, Until Carine 01/06/23 at 1225, ELLIOTT, Intra-op [facility] NaCl 0.9% (NS) injection 01-06 18:02: 00 01-06 18:25 :28 No PRN, Starting on Carine 01/06/23 at 1202, Until Carine 01/06/23 at 1225, Routine, Intra-op [facility] water for irrigation irrigation solution 01-06 18:02: 00 01-06 18:25 :28 No PRN, Starting on Carine 01/06/23 at 1202, Until Carine 01/06/23 at 1225, Routine, Intra-op [facility] EPINEPHrine (PF) 1:1,000 (1 mg/mL) (ADRENALIN (PF)) injection 01-06 18:00: 00 01-06 18:25 :28 No PRN, Starting on Carine 01/06/23 at 1200, Until Carine 01/06/23 at 1225, Routine, Intra-op [facility] chondroitin sulf-sod hyaluronate (DUOVISC VISCO ELASTIC) intraocular injection 01-06 17:59: 00 01-06 18:25 :28 No PRN, Starting on Carine 01/06/23 at 1159, Until Carine 01/06/23 at 1225, Routine, Intra-op [facility] dexamethaso ne (DECADRON PHOSPHATE) injection 01-06 17:59: 00 01-06 18:25 :28 No PRN, Starting on Carine 01/06/23 at 1159, Until Carine 01/06/23 at 1225, Routine, Intra-op [facility] ceFAZolin (ANCEF) injection 01-06 17:59: 00 01-06 18:25 :28 No PRN, Starting on Carine 01/06/23 at 1159, Until Carine 01/06/23 at 1225, ELLIOTT, Intra-op [facility] balanced salt soln no.2 irrig. (BSS) ophthalmic solution 01-06 17:58: 00 01-06 18:25 :28 No PRN, Starting on Carine 01/06/23 at 1158, Until Carine 01/06/23 at 1225, Routine, Intra-op [facility] cyclopent 1%-tropic 1%-phenyl 2.5%-ketor 0.5% (MYDRIATIC #5) ophthalmic solution syringe 0.5 mL 01-06 17:45: 00 01-06 16:49 :00 No .5mL 0.5 mL, Left Eye, ONCE, 1 dose, On Carine 01/06/23 at 1145, Routine, DSU Pre-op [facility] tadalafiL (CIALIS) 20 mg tablet 2021-11 00:00: 00 Yes [id number] 20mg Take 1 tablet by mouth as needed for Erectile dysfunctio n (2 hrs prior to sexual activity, 2-3 times/week ). [facility] oxybutynin chloride 5 mg tablet 2021-1117 00:00: 00 01-10 00:00 :00 No [id number] 5mg Take 1 tablet by mouth in the morning and 1 tablet in the evening. Do all this for 120 days. [facility] tamsulosin (FLOMAX) 0.4 mg 24 hr capsule 03-08 00:00: 00 01-10 23:49 :19 No [id number] 01 .4mg Take 1 capsule by mouth daily. [facility] Immunizations Ordered Immunization Name Filled Immunization Name Date Status Comments Source SARS-COV-2 COVID-19 PFIZER VACCINE 2021-02-19 00:00:00 Completed [facility] SARS-COV-2 COVID-19 PFIZER VACCINE 2021-02-19 00:00:00 Completed [facility] SARS-COV-2 COVID-19 PFIZER VACCINE 2021-02-19 00:00:00 Completed [facility] SARS-COV-2 COVID-19 PFIZER VACCINE 2021-02-19 00:00:00 Completed [facility] SARS-COV-2 COVID-19 PFIZER VACCINE 2021-02-19 00:00:00 Completed [facility] SARS-COV-2 COVID-19 PFIZER VACCINE 2021-02-19 00:00:00 Completed [facility] SARS-COV-2 COVID-19 PFIZER VACCINE 2021-02-19 00:00:00 Completed [facility] SARS-COV-2 COVID-19 PFIZER VACCINE 2021-02-19 00:00:00 Completed [facility] SARS-COV-2 COVID-19 PFIZER VACCINE 2021-02-19 00:00:00 Completed [facility] SARS-COV-2 COVID-19 PFIZER VACCINE 2021-02-19 00:00:00 Completed [facility] SARS-COV-2 COVID-19 PFIZER VACCINE 2021-02-19 00:00:00 Completed [facility] SARS-COV-2 COVID-19 PFIZER VACCINE 2021-02-19 00:00:00 Completed [facility] SARS-COV-2 COVID-19 PFIZER VACCINE 2021-02-19 00:00:00 Completed [facility] SARS-COV-2 COVID-19 PFIZER VACCINE 2021-02-19 00:00:00 Completed [facility] SARS-COV-2 COVID-19 PFIZER VACCINE 2021-02-19 00:00:00 Completed [facility] SARS-COV-2 COVID-19 PFIZER VACCINE 2021-02-19 00:00:00 Completed [facility] SARS-COV-2 COVID-19 PFIZER VACCINE 2021-02-19 00:00:00 Completed [facility] SARS-COV-2 COVID-19 PFIZER VACCINE 2021-02-19 00:00:00 Completed [facility] SARS-COV-2 COVID-19 PFIZER VACCINE 2021-02-19 00:00:00 Completed [facility] SARS-COV-2 COVID-19 PFIZER VACCINE 2021-02-19 00:00:00 Completed [facility] SARS-COV-2 COVID-19 PFIZER VACCINE 2021-02-19 00:00:00 Completed [facility] SARS-COV-2 COVID-19 PFIZER VACCINE 2021-02-19 00:00:00 Completed [facility] SARS-COV-2 COVID-19 PFIZER VACCINE 2021-02-19 00:00:00 Completed [facility] SARS-COV-2 COVID-19 PFIZER VACCINE 2021-02-19 00:00:00 Completed [facility] SARS-COV-2 COVID-19 PFIZER VACCINE 2021-02-19 00:00:00 Completed [facility] SARS-COV-2 COVID-19 PFIZER VACCINE 2021-02-19 00:00:00 Completed [facility] SARS-COV-2 COVID-19 PFIZER VACCINE 2021-02-19 00:00:00 Completed [facility] SARS-COV-2 COVID-19 PFIZER VACCINE 2021-01-28 00:00:00 Completed [facility] SARS-COV-2 COVID-19 PFIZER VACCINE 2021-01-28 00:00:00 Completed [facility] SARS-COV-2 COVID-19 PFIZER VACCINE 2021-01-28 00:00:00 Completed [facility] SARS-COV-2 COVID-19 PFIZER VACCINE 2021-01-28 00:00:00 Completed [facility] SARS-COV-2 COVID-19 PFIZER VACCINE 2021-01-28 00:00:00 Completed [facility] SARS-COV-2 COVID-19 PFIZER VACCINE 2021-01-28 00:00:00 Completed [facility] SARS-COV-2 COVID-19 PFIZER VACCINE 2021-01-28 00:00:00 Completed [facility] SARS-COV-2 COVID-19 PFIZER VACCINE 2021-01-28 00:00:00 Completed [facility] SARS-COV-2 COVID-19 PFIZER VACCINE 2021-01-28 00:00:00 Completed [facility] SARS-COV-2 COVID-19 PFIZER VACCINE 2021-01-28 00:00:00 Completed [facility] SARS-COV-2 COVID-19 PFIZER VACCINE 2021-01-28 00:00:00 Completed [facility] SARS-COV-2 COVID-19 PFIZER VACCINE 2021-01-28 00:00:00 Completed [facility] SARS-COV-2 COVID-19 PFIZER VACCINE 2021-01-28 00:00:00 Completed [facility] SARS-COV-2 COVID-19 PFIZER VACCINE 2021-01-28 00:00:00 Completed [facility] SARS-COV-2 COVID-19 PFIZER VACCINE 2021-01-28 00:00:00 Completed [facility] SARS-COV-2 COVID-19 PFIZER VACCINE 2021-01-28 00:00:00 Completed [facility] SARS-COV-2 COVID-19 PFIZER VACCINE 2021-01-28 00:00:00 Completed [facility] SARS-COV-2 COVID-19 PFIZER VACCINE 2021-01-28 00:00:00 Completed [facility] SARS-COV-2 COVID-19 PFIZER VACCINE 2021-01-28 00:00:00 Completed [facility] SARS-COV-2 COVID-19 PFIZER VACCINE 2021-01-28 00:00:00 Completed [facility] SARS-COV-2 COVID-19 PFIZER VACCINE 2021-01-28 00:00:00 Completed [facility] SARS-COV-2 COVID-19 PFIZER VACCINE 2021-01-28 00:00:00 Completed [facility] SARS-COV-2 COVID-19 PFIZER VACCINE 2021-01-28 00:00:00 Completed [facility] SARS-COV-2 COVID-19 PFIZER VACCINE 2021-01-28 00:00:00 Completed [facility] SARS-COV-2 COVID-19 PFIZER VACCINE 2021-01-28 00:00:00 Completed [facility] SARS-COV-2 COVID-19 PFIZER VACCINE 2021-01-28 00:00:00 Completed [facility] SARS-COV-2 COVID-19 PFIZER VACCINE 2021-01-28 00:00:00 Completed [facility] SARS-COV-2 COVID-19 PFIZER VACCINE Unknown Completed [facility] SARS-COV-2 COVID-19 PFIZER VACCINE Unknown Completed [facility] SARS-COV-2 COVID-19 PFIZER VACCINE Unknown Completed [facility] SARS-COV-2 COVID-19 PFIZER VACCINE Unknown Completed [facility] SARS-COV-2 COVID-19 PFIZER VACCINE Unknown Completed [facility] SARS-COV-2 COVID-19 PFIZER VACCINE Unknown Completed [facility] SARS-COV-2 COVID-19 PFIZER VACCINE Unknown Completed [facility] SARS-COV-2 COVID-19 PFIZER VACCINE Unknown Completed [facility] SARS-COV-2 COVID-19 PFIZER VACCINE Unknown Completed [facility] SARS-COV-2 COVID-19 PFIZER VACCINE Unknown Completed [facility] SARS-COV-2 COVID-19 PFIZER VACCINE Unknown Completed [facility] SARS-COV-2 COVID-19 PFIZER VACCINE Unknown Completed [facility] SARS-COV-2 COVID-19 PFIZER VACCINE Unknown Completed [facility] SARS-COV-2 COVID-19 PFIZER VACCINE Unknown Completed [facility] SARS-COV-2 COVID-19 PFIZER VACCINE Unknown Completed [facility] SARS-COV-2 COVID-19 PFIZER VACCINE Unknown Completed [facility] SARS-COV-2 COVID-19 PFIZER VACCINE Unknown Completed [facility] SARS-COV-2 COVID-19 PFIZER VACCINE Unknown Completed [facility] SARS-COV-2 COVID-19 PFIZER VACCINE Unknown Completed [facility] SARS-COV-2 COVID-19 PFIZER VACCINE Unknown Completed [facility] Vital Signs Vital Name Observation Time Observation Value Comments S marlyn Systolic blood pressure 2023-09-20 20:53:00 134 mm[Hg] [facility] Diastolic blood pressure 2023-09-20 20:53:00 79 mm[Hg] [facility] Heart rate 2023-09-20 20:53:00 77 /min [facility] Respiratory rate 2023-09-20 20:53:00 18 /min [facility] Body height 2023-09-20 20:53:00 177.8 cm [facility] Body weight 2023-09-20 20:53:00 108.41 kg [facility] BMI 2023-09-20 20:53:00 34.29 kg/m2 [facility] Systolic blood pressure 2023-07-05 16:23:00 139 mm[Hg] [facility] Diastolic blood pressure 2023-07-05 16:23:00 81 mm[Hg] [facility] Heart rate 2023-07-05 16:23:00 69 /min [facility] Body temperature 2023-07-05 16:23:00 36.44 Mary [facility] Respiratory rate 2023-07-05 16:23:00 18 /min [facility] Body height 2023-07-05 16:23:00 177.8 cm [facility] Body weight 2023-07-05 16:23:00 110.768 kg [facility] BMI 2023-07-05 16:23:00 35.04 kg/m2 [facility] Oxygen saturation in Arterial blood by Pulse oximetry 2023-07-05 16:23:00 95 /min [facility] Systolic blood pressure 2023-04-04 18:34:00 128 mm[Hg] [facility] Diastolic blood pressure 2023-04-04 18:34:00 90 mm[Hg] [facility] Heart rate 2023-04-04 18:34:00 83 /min [facility] Oxygen saturation in Arterial blood by Pulse oximetry 2023-04-04 18:34:00 92 /min [facility] Body temperature 2023-04-04 18:32:00 36.5 Mary [facility] Respiratory rate 2023-04-04 18:32:00 18 /min [facility] Body weight 2023-04-04 18:32:00 109.77 kg [facility] BMI 2023-04-04 18:32:00 34.72 kg/m2 [facility] Systolic blood pressure 2023-01-10 22:43:00 153 mm[Hg] [facility] Diastolic blood pressure 2023-01-10 22:43:00 83 mm[Hg] [facility] Heart rate 2023-01-10 22:42:00 84 /min [facility] Body temperature 2023-01-10 22:42:00 36.67 [facility] Respiratory rate 2023-01-10 22:42:00 18 /min [facility] Body height 2023-01-10 22:42:00 177.8 cm [facility] Body weight 2023-01-10 22:42:00 106.142 kg [facility] BMI 2023-01-10 22:42:00 33.58 kg/m2 [facility] Systolic blood pressure 2023-01-06 18:47:00 159 mm[Hg] [facility] Diastolic blood pressure 2023-01-06 18:47:00 94 mm[Hg] [facility] Heart rate 2023-01-06 18:47:00 58 /min [facility] Respiratory rate 2023-01-06 18:47:00 12 /min [facility] Oxygen saturation in Arterial blood by Pulse oximetry 2023-01-06 18:47:00 97 /min [facility] Body temperature 2023-01-06 18:27:00 36.17 [facility] Body height 2022-12-29 20:00:00 177.8 cm [facility] Body weight 2022-12-29 20:00:00 95.255 kg [facility] BMI 2022-12-29 20:00:00 30.13 kg/m2 [facility] Systolic blood pressure 2023-01-06 18:47:00 159 mm[Hg] [facility] Diastolic blood pressure 2023-01-06 18:47:00 94 mm[Hg] [facility] Heart rate 2023-01-06 18:47:00 58 /min [facility] Respiratory rate 2023-01-06 18:47:00 12 /min [facility] Oxygen saturation in Arterial blood by Pulse oximetry 2023-01-06 18:47:00 97 /min [facility] Body temperature 2023-01-06 18:27:00 36.17 Mary [facility] Body height 2022-12-29 20:00:00 177.8 cm [facility] Body weight 2022-12-29 20:00:00 95.255 kg [facility] BMI 2022-12-29 20:00:00 30.13 kg/m2 [facility] Systolic blood pressure 2022-10-14 20:02:00 145 mm[Hg] [facility] Diastolic blood pressure 2022-10-14 20:02:00 84 mm[Hg] [facility] Heart rate 2022-10-14 20:02:00 73 /min [facility] Body temperature 2022-10-14 20:02:00 36.83 [facility] Respiratory rate 2022-10-14 20:02:00 18 /min [facility] Body height 2022-10-14 20:02:00 177.8 cm [facility] Body weight 2022-10-14 20:02:00 105.053 kg [facility] BMI 2022-10-14 20:02:00 33.23 kg/m2 [facility] Oxygen saturation in Arterial blood by Pulse oximetry 2022-10-14 20:02:00 95 /min [facility] Systolic blood pressure 2022-09-30 21:29:00 138 mm[Hg] [facility] Diastolic blood pressure 2022-09-30 21:29:00 83 mm[Hg] [facility] Heart rate 2022-09-30 21:29:00 72 /min [facility] Respiratory rate 2022-09-30 21:29:00 18 /min [facility] Body height 2022-09-30 21:29:00 177.8 cm [facility] Body weight 2022-09-30 21:29:00 107.321 kg [facility] BMI 2022-09-30 21:29:00 33.95 kg/m2 [facility] Oxygen saturation in Arterial blood by Pulse oximetry 2022-09-30 21:29:00 97 /min [facility] Systolic blood pressure 2022-09-30 19:51:00 138 mm[Hg] [facility] Diastolic blood pressure 2022-09-30 19:51:00 83 mm[Hg] [facility] Heart rate 2022-09-30 19:51:00 72 /min [facility] Body temperature 2022-09-30 19:51:00 36.61 Mary [facility] Respiratory rate 2022-09-30 19:51:00 18 /min [facility] Body height 2022-09-30 19:51:00 177.8 cm [facility] Body weight 2022-09-30 19:51:00 107.321 kg [facility] BMI 2022-09-30 19:51:00 33.95 kg/m2 [facility] Oxygen saturation in Arterial blood by Pulse oximetry 2022-09-30 19:51:00 97 /min [facility] Systolic blood pressure 2022-04-05 15:20:00 122 mm[Hg] [facility] Diastolic blood pressure 2022-04-05 15:20:00 77 mm[Hg] [facility] Heart rate 2022-04-05 15:20:00 70 /min [facility] Respiratory rate 2022-04-05 15:20:00 17 /min [facility] Body height 2022-04-05 15:20:00 177.8 cm [facility] Body weight 2022-04-05 15:20:00 107.956 kg [facility] BMI 2022-04-05 15:20:00 34.15 kg/m2 [facility] Oxygen saturation in Arterial blood by Pulse oximetry 2022-04-05 15:20:00 95 /min [facility] Procedures Procedure Date / Time Performed Performing Clinician Source PATIENT QUESTIONNAIRE 2023-09-20 06:01:00 Doctor Unassigned, Calera [facility] POCT URINALYSIS AUTO 2023-07-05 18:11:00 Mariela Melgar [facility] ASSIGNMENT OF BENEFITS 2023-04-04 18:09:55 Doctor Unassigned, [place] [facility] POCT URINALYSIS AUTO 2023-01-10 22:42:00 Mariela Melgar [facility] POCT URINALYSIS AUTO 2023-01-10 22:39:00 Mariela Melgar [facility] PHACOEMULSIFICATION OF CATARACT WITH INTRAOCULAR LENS IMPLANT 2023-01-06 17:52:00 Amalia Fraga [facility] ASSIGNMENT OF BENEFITS 2022-12-30 17:54:24 Doctor Unassigned, [place] [facility] MEDICAL RELEASE/CLEARANCE FORMS 2022-12-09 06:01:00 Doctor Unassigned, [place] [facility] POCT URINALYSIS AUTO 2022-10-14 19:58:00 Ce [facility] POCT URINALYSIS AUTO 2022-09-30 23:16:00 Claudine Encinas [facility] DISCLOSURE AND CONSENT, MEDICAL AND SURGICAL PROCEDURES 2022-09-30 06:01:00 Doctor Unassigned, [place]era [facility] INSURANCE CORRESPONDENCE 2022-04-15 05:01:00 Doctor Unassigned, [place] [facility] HB ECG ROUTINE & RHYTHM STRIP 2022-04-05 15:26:53 Emily Hernandez [facility] Encounters Start Date/Time End Date/Time Encounter Type Admission Type Attending Clinicians Care Facility Care Department Encounter ID Source 2021-12-09 12:42:27 Out[facility] [id number] 2024-01-17 11:30:00 2024-01-17 11:30:00 Outpatient R [facility] [id number] [facility] 2023-12-20 11:30:00 2023-12-20 11:30:00 [id number] 2023-11-25 00:00:00 2023-11-25 00:00:00 [facility] [id number] [facility] 2023-09-23 00:00:00 2023-09-23 00:00:00 [facility] [id number] [facility] 2023-09-20 14:30:00 2023-09-20 16:14:09 Office Visit [facility] [id number] 4.2.7.2.686 [id number] [facility] 2023-09-20 14:30:00 2023-09-20 16:14:09 Outpatient R CE [facility] [id number] [facility] 2023-09-20 00:00:00 2023-09-20 00:00:00 Orders Only Doctor Unassigned, [facility] 1.2.840.114 350.1.13.10 4.2.7.2.686 [id number] [facility] 2023-08-31 14:00:00 2023-08-31 14:00:00 Outpatient R CE [facility] [id number] [facility] 2023-07-05 11:30:00 2023-07-05 11:59:09 Outpatient R MARIELA MELGAR [facility] [id number] [facility] 2023-07-05 11:30:00 2023-07-05 11:59:09 [facility] 1.2.840.114 350.1.13.10 4.2.7.2.686 [id number] [facility] 2023-04-04 13:45:00 2023-04-04 14:02:48 Outpatient R [facility] [id number] [facility] 2023-04-04 13:45:00 2023-04-04 14:02:48 Office Visit [facility] 1.2.840.114 350.1.13.10 4.2.7.2.686 [id number] [facility] 2023-04-04 00:00:00 2023-04-04 00:00:00 Orders Only Doctor Unassigned, [facility]era [facility] 1.2.840.114 350.1.13.10 4.2.7.2.686 [id number] [id number] [facility] 2023-01-10 16:30:00 2023-01-10 17:04:08 Outpatient R KARISSA MELGARTNEY [facility] [id number] [facility] 2023-01-10 16:30:00 2023-01-10 17:04:08 Office Visit Ramón [facility] 1.2.840.114 350.1.13.10 4.2.7.2.686 [id number] [facility] 2023-01-10 07:45:00 2023-01-10 08:00:00 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 Visit Pob, Adc Lab Main Ramón [facility] 1.2.840.114 350.1.13.10 4.2.7.2.686 [id number] [facility] 2023-01-06 10:26:00 2023-01-06 13:12:00 Outpatient R FLAKITO AMALIA [facility] [id number] [facility] 2023-01-06 10:26:00 2023-01-06 13:12:00 Hospital Encounter Amalia Fraga [facility] 1.2.840.114 350.1.13.10 4.2.7.2.686 [id number] [facility] 2023-01-06 12:27:00 2023-01-06 13:04:00 Surgery FlakitoAmalia [facility] 1.2.840.114 350.1.13.10 4.2.7.2.686 [id number] [facility] 2022-12-30 00:00:00 2022-12-30 00:00:00 Orders Only Doctor Unassigned, [facility] 1.2.840.114 350.1.13.10 4.2.7.2.686 [id number] [facility] 2022-12-09 00:00:00 2022-12-09 00:00:00 Telephone Emily Hernandez [facility] 1.2.840.114 350.1.13.10 4.2.7.2.686 [id number] [facility] 2022-12-09 00:00:00 2022-12-09 00:00:00 Orders Only Doctor Unassigned, Calera [facility] 1.2.840.114 350.1.13.10 4.2.7.2.686 [id number] [facility] 2022-11-11 00:00:00 2022-11-11 00:00:00 Telephone Claudine Encinas [facility] 1.2.840.114 350.1.13.10 4.2.7.2.686 [id number] [facility] 2022-11-09 00:00:00 2022-11-09 00:00:00 Telephone Claudine Encinas [facility] 1.2.840.114 350.1.13.10 4.2.7.2.686 [id number] [facility] 2022-10-14 14:00:00 2022-10-14 15:30:30 Outpatient R CLAUDINE ENCINAS [facility] [id number] [facility] 2022-10-14 14:00:00 2022-10-14 15:30:30 Office Visit Claudine Encinas [facility] 1.2.840.114 350.1.13.10 4.2.7.2.686 [id number] [facility] 2022-10-05 00:00:00 2022-10-05 00:00:00 Telephone Ce Claudine [facility] 1.2.840.114 350.1.13.10 4.2.7.2.686 [id number] [facility] 2022-09-30 15:00:00 2022-09-30 15:32:05 Office Visit Claudine Encinas Rm, Adc Surg Spec Procedure [facility] 1.2.840.114 350.1.13.10 4.2.7.2.686 [id number] [facility] 2022-09-30 14:45:00 2022-09-30 14:45:00 Office Visit Claudine Encinas [facility] 1.2.840.114 350.1.13.10 4.2.7.2.686 [id number] [facility] 2022-09-30 14:45:00 2022-09-30 14:08:08 Outpatient R CLAUDINE ENCINAS [facility] [id number] [facility] 2022-09-30 00:00:00 2022-09-30 00:00:00 Orders Only Doctor Unassigned, Calera [facility] 1.2.840.114 350.1.13.10 4.2.7.2.686 [id number] [facility] 2022-09-30 00:00:00 2022-09-30 00:00:00 [facility] 1.2.840.114 350.1.13.10 4.2.7.2.686 [id number] [facility] 2022-04-29 00:00:00 2022-04-29 00:00:00 [facility] 1.2.840.114 350.1.13.10 4.2.7.2.686 [id number] [facility] 2022-04-22 00:00:00 2022-04-22 00:00:00 Patient Secure Msg Hernandez [facility] 1.2.840.114 350.1.13.10 4.2.7.2.686 [id number] [facility] 2022-04-21 07:39:55 2022-04-21 07:39:55 [facility] [id number] [facility] 2022-04-21 07:37:52 2022-04-21 07:38:00 Out[facility] [id number] [facility] 2022-04-17 00:00:00 2022-04-17 00:00:00 Patient Secure Msg Doctor Unassigned, Calera [facility] 1.2840.114 350.1.13.10 4.2.7.2.686 [id number] [facility] 2022-04-15 00:00:00 2022-04-15 00:00:00 Orders Only Doctor Unassigned, Calera [facility] 1.2840.114 350.1.13.10 4.2.7.2.686 [id number] [facility] 2022-04-05 10:20:00 2022-04-05 10:41:[address] [facility] 1..840.114 350.1.13.10 4.2.7.2.686 [id number] [facility] 2022-04-05 10:20:00 2022-04-05 10:41:39 Outpatient R [facility] [id number] [facility] 2022-04-05 10:20:00 2022-04-05 10:41:39 Outpatient R [facility] [id number] [facility] 2022-03-08 13:45:00 2022-03-08 15:50:21 Outpatient R CLAUDINE ENCINAS [facility] [id number] [facility] 2022-03-08 13:45:00 2022-03-08 15:50:21 Office Visit Claudine Encinas Rm, Adc Surg Spec [facility] 1..840.114 350.1.13.10 4.2.7.2.686 [id number] [facility] 2022-03-08 13:45:00 2022-03-08 15:50:21 Outpatient R CLAUDINE ENCINAS [facility] [id number] [facility] 2022-03-08 00:00:00 2022-03-08 00:00:00 Patient Secure Msg Ce [facility] 1.84.114 350.1.13.10 4.2.7.2.686 [id number] [facility] 2022-03-08 00:00:00 2022-03-08 00:00:00 Orders Only Doctor Unassigned, Calera [facility] 1.20.114 350.1.13.10 4.2.7.2.686 [id number] [facility] 2022-02-04 09:30:00 2022-02-04 10:55:08 Office Visit Ce [facility] 1.84.114 350.1.13.10 4.2.7.2.686 [id number] [facility] 2022-02-04 09:30:00 2022-02-04 10:55:08 [facility] [id number] [facility] 2022-02-04 09:30:00 2022-02-04 10:55:08 [facility] [id number] 2022-02-04 00:00:00 2022-02-04 00:00:00 Orders Only Doctor Unassigned, Calera [facility] 1.284.114 350.1.13.10 4.2.7.2.686 [id number] [facility] Results Test Description Test Time Test Comments Results Result Co mments Source [facility] [id number] 18:13:00 * Test Item Value Reference Range [...] clear Lab Interpretation (test cod e = 90234-2) Normal [facility] URINALYSIS, [id number] 22:43:00 * Test Item Value Reference Range [...] clear Lab Interpretation (test cod e = 30642-3) Abnormal [facility] URINALYSIS, [id number] 22:43:00 * Test Item Value Reference Range [...] clear Lab Interpretation (test cod e = 48953-7) Abnormal [facility] URINALYSIS, [id number] 22:41:00 * Test Item Value Reference Range [...] U APPEAR (test code = 3267) Clear [facility] URINALYSIS, [id number] 22:41:00 * Test Item Value Reference Range [...] U APPEAR (test code = 3267) Clear [facility] URINALYSIS, [id number] 19:59:00 * Test Item Value Reference Range [...] U APPEAR (test code = 3267) clear [facility] URINALYSIS, [id number] 19:59:00 * Test Item Value Reference Range [...] U APPEAR (test code = 3267) clear [facility] URINALYSIS, [id number] 23:16:00 * Test Item Value Reference Range [...] Clear Lab Interpretation (test cod e = 99130-2) [facility] [id number] 23:16:00 * Test Item Value Reference Range [...] Clear Lab Interpretation (test cod e = 06867-3) Abnormal [facility] Notes Date/Time Note Provider Source 2023-11-25 14:39:04 [id number] cZCeIAf/HwQQo w2jngYCpm+P4kiki247JLvniEa2qu1g15 07-12-11T14:39:04 RX clarified with men MD- states they will get RX ready and notify patient. 54469-8Uahnbjnsh encounter AzmyDT0855-86-73B30:39:27Telephon e encounter NoteTXT1.2.840.902147.1.13.104.2. 7.2.465607|[id number] for patient hvii11906-9JzjeFDUILQTCYAZYjdggkd ed C-CDA narrative [id number] A Hall RN[address] Uf[id number] 213XKAHWCRBIUFURGLZDIZPWM8388-06- 12T14:39:271.2.840.983333.1.72.3. 15|1.2.840.604378.1.13.104.2.7.2. [id number] Laura Pitts RN [facility] 2023-11-25 14:27:26 iDtjH1V+C27Ba1QfecR5 XC+BIw2gkRIf2 LmVGdD9XrCbijvUm32/9PSjzHiWJ2MY01 07-12-11:27:26 Pt called about a prescription that he is still having problems receiving. Pt seen Dr 09/20/23 Pt states he has paid for the prescription and the pharmacy is unable to mail the prescription due to missing information. Pharmacy [phone] assist 54347-6Glekbggcy encounter SefjYD6184-54-02C87:31:35Telephon e encounter NoteTXT1.2.840.151189.1.13.104.2. 7.2.061475|[id number] for patient wbfp69597-1HsutZXSDXPZKTOOSqnkqom ed C-CDA narrative [id number] [address] Sg[id number] 461HALMLWEVNDFKZOZZKXVEGZ3503-15- 12T14:31:351.2.840.834844.1.72.3. 15|1.2.840.506847.1.13.104.2.7.2. [id number] [facility]"
--- NOTE | 2024-03-12 10:05 | RAD REPORT ---
EXAM DESCRIPTION: CT - Spine Lumbar Wo Con - 03/12/2024 9:57 am CLINICAL HISTORY: Radiculopathy. PAIN COMPARISON: No comparisons TECHNIQUE: Axial noncontrast CT imaging of the lumbar spine was performed with coronal and sagittal re-formatted images. All CT scans are performed using dose optimization technique as appropriate and may include automated exposure control or mA/KV adjustment according to patient size. FINDINGS: No acute lumbar spine fracture seen. No aggressive marrow pattern or malalignment. Paraspinal tissues are normal in thickness. No paraspinal abscess or hematoma seen. Broad-based posterior disc bulge is seen lower lumbar levels most notable at L4-5 and L5-S1. The find ings do not result in significant canal stenosis. IMPRESSION: No acute lumbar spine abnormality is observed. Lgyg-tu-yerioknr lower lumbar degenerative spondylosis.
[2024-03-12] MEDS ORDERED: dexAMETHasone 10 MG/ML VIAL ONE (10:35)
[2024-03-12] MEDS ORDERED: ONDANSETRON 4 MG/2 ML VIAL ONE (10:35)
[2024-03-12] MEDS ORDERED: NA CHLORIDE 0.9% 1,000 ML ONE (10:36)
[2024-03-12] MEDS ORDERED: KETOROLAC 30 MG/ML INJ ONE (10:36)
[2024-03-12] MEDS ORDERED: DIAZEPAM 5 MG TABLET ONE (10:36)
[2024-03-12] MEDS ORDERED: FENTANYL CITR 100 MCG/2 ML ONE (10:36)
[2024-03-12 10:42] LABS: Absolute Eosinophils 0.3 K/uL (0-0.5); Absolute Lymphocytes (CBC) 1.5 K/uL (0.7-4.9); Absolute Monocytes 0.5 K/uL (0.1-1.3); Absolute Neutrophil 4.4 K/uL (1.8-8.0); Basophils % 0.6 % (0-1.3); Eosinophils % 4.9 % (0-4.4); Hematocrit 44.7 % (39.6-49.0); Hemoglobin 14.8 g/dL (13.6-17.9); Lymphocytes % 22.3 % (15.3-44.8); MCH 29.5 pg (27.0-35.0); MCHC 33.2 g/dL (32.0-36.0); MCV 88.8 fL (80-100); MPV 6.6 fL (7.6-11.3); Monocytes % 7.1 % (3.3-12.3); Neutrophils % 65.1 % (41.7-73.7); Nucleated Red Blood Cells % 0.1 % (0-0); Platelets 254 thou/uL (152-406); RBC Red Blood Cell Count 5.03 M/uL (4.33-5.43); Red Cell Distribution Width 13.3 % (12.1-15.2)
[2024-03-12 10:56] LABS: Albumin 3.2 g/dL (3.4-5.0); Anion Gap 5.8 mEq/L (5.0-15.0); Bilirubin Total 0.4 mg/dL (0.2-1.0); Globulin 3.2 g/dL (2.3-3.5); Potassium 3.8 mEq/L (3.5-5.1); Protein, Total 6.4 g/dL (6.4-8.2)
--- NOTE | 2024-03-12 11:16 | ER ---
Nurse's Notes [facility] Name: Rl Day Age: 68 yrs Sex: Male : 1955 Arrival Date: 03/12/2024 Time: 09:27 Bed 16 Private MD: Diagnosis: Sciatica;Sciatica, left side;Pain in left leg;Spondylolysis, lumbar region Presentation: 03/12 09:36 Chief complaint: Patient states: was seen here a few weeks ago for a muscle strain in iw left leg, now he is having pain in his back. Coronavirus screen: At this time, the client does not indicate any symptoms associated with coronavirus-19. Ebola Screen: Patient negative for fever greater than or equal to 101.5 degrees Fahrenheit, and additional compatible Ebola Virus Disease symptoms Patient denies exposure to infectious person. Patient denies travel to an Ebola-affected area in the 21 days before illness onset. No symptoms or risks identified at this time. Initial Sepsis Screen: Does the patient meet any 2 criteria? No. Patient's initial sepsis screen is negative. Does the patient have a suspected source of infection? No. Patient's initial sepsis screen is negative. Risk Assessment: Do you want to hurt yourself or someone else? Patient reports no desire to harm self or others. 09:36 Method Of Arrival: Ambulatory iw 09:36 Acuity: ZAHRA 4 iw 09:50 Onset of symptoms was February 2024. iw 09:50 Acuity: ZAHRA 3 iw Triage Assessment: 09:51 General: Appears in no apparent distress. comfortable, Behavior is calm, cooperative, ld1 appropriate for age. Pain: Denies pain. EENT: No signs and/or symptoms were reported regarding the EENT system. Neuro: Level of Consciousness is awake, alert, obeys commands, Oriented to person, place, time, situation. Cardiovascular: Capillary refill < 3 seconds Patient's skin is warm and dry. Respiratory: Airway is patent Respiratory effort is even, unlabored. GI: Abdomen is flat, non-distended. : No signs and/or symptoms were reported regarding the genitourinary system. Derm: No signs and/or symptoms reported regarding the dermatologic system. Musculoskeletal: No signs and/or symptoms reported regarding the musculoskeletal system. Historical: - Allergies: :38 No Known Allergies; iw - PMHx: 09:38 None; iw - Immunization history:: Adult Immunizations up to date. - Infectious Disease History:: Denies. - Social history:: Smoking status: Patient denies any tobacco usage or history of. - Family history:: not pertinent. Screenin:53 [facility] ED Fall Risk Assessment (Adult) History of falling in the last 3 months, ld1 including since admission No falls in past 3 months (0 pts). Abuse screen: Denies threats or abuse. Denies injuries from another. Nutritional screening: No deficits noted. Tuberculosis screening: No symptoms or risk factors identified. Assessment: 09:53 Reassessment: See triage assessment. ld1 Vital Signs: 09:36 Pulse 88; Resp 16; Temp 98.2; Pulse Ox 96% ; iw 09:51 BP 160 / 93; Pulse 84; Resp 18; Pulse Ox 93% on R/A; ld1 10:55 BP 137 / 81; Pulse 81; Resp 18; Pulse Ox 95% ; cp4 ED Course: 09:28 Patient arrived in ED. rg4 09:30 Patrick Henry MD is Attending Physician. ericka 09:38 Triage completed. iw 09:51 Leticia Mercer, DANIELA is Primary Nurse. ld1 09:51 Arm band placed on right wrist. ld1 09:53 Patient has correct armband on for positive identification. Placed in gown. Bed in low ld1 position. Call light in reach. Side rails up X2. laboratory monitor on. Pulse ox on. NIBP on. Door closed. Noise minimized. Warm blanket given. 09:53 No provider procedures requiring assistance completed. ld1 09:59 CT Lumbar Spine Wo Con In Process Unspecified. EDMS 10:44 Initial lab(s) drawn, by nc, sent to lab. Inserted saline lock: 20 gauge in left cp4 antecubital area, using aseptic technique. Blood collected. 11:15 Ryan Rodriguez MD is Referral Physician. ericka 11:28 IV discontinued, intact, bleeding controlled, No redness/swelling at site. ld1 Administered Medications: 10:43 Drug: NS 0.9% IV 1000 ml IV at 1 bolus Per protocol; 1000 mL bolus Route: IV; Rate: 1 cp4 bolus; Site: left antecubital; 10:43 Drug: Ketorolac IVP 15 mg IVP once Route: IVP; Site: left antecubital; cp4 10:43 Drug: Diazepam PO 5 mg PO once Route: PO; cp4 10:43 Drug: fentaNYL (PF) IM 25 mcg IM once Route: IM; Site: left deltoid; cp4 10:43 Drug: Ondansetron IVP 4 mg IVP once; over 2 minutes Route: IVP; Site: left antecubital; cp4 10:43 Drug: Decadron - Dexamethasone IVP 10 mg IVP once Route: IVP; Site: left antecubital; cp4 Medication: 09:53 VIS not applicable for this client. ld1 Outcome: 11:15 Discharge ordered by . ericka 11:28 Discharged to home ambulatory, ld1 11:28 Condition: stable 11:28 Discharge instructions given to patient, Instructed on discharge instructions, follow up and referral plans. medication usage, Demonstrated understanding of instructions, follow-up care, medications, Prescriptions given X 3, 11:28 Patient left the ED. ld1 Signatures: Dispatcher [employer] EDPatrick Hernandez MD MD cha Williams, Irene, RN RN iw Garcia, Rubi rg4 Leticia Mercer RN RN ld1 Nishi Hardy cp4
--- NOTE | 2024-03-12 11:16 | EDPHYS ---
Physician Documentation [facility] Name: Rl Day Age: 68 yrs Sex: Male : 1955 Arrival Date: 03/12/2024 Time: 09:27 Bed 16 Private MD: ED Physician Patrick Henry HPI: 03/12 10:11 This 68 yrs old Male presents to ER via Ambulatory with complaints of ericka Medication Refill. 10:11 The patient presents to the emergency department requesting refill(s) for: pain meds ericka for left leg. The patient chronically suffers from chronic back pain. Historical: - Allergies: 09:38 No Known Allergies; iw - PMHx: :38 None; iw - Immunization history:: Adult Immunizations up to date. - Infectious Disease History:: Denies. - Social history:: Smoking status: Patient denies any tobacco usage or history of. - Family history:: not pertinent. ROS: 10:11 Constitutional: Negative for fever, chills, and weight loss, Eyes: Negative for injury, ericka pain, redness, and discharge, ENT: Negative for injury, pain, and discharge, Neck: Negative for injury, pain, and swelling, Cardiovascular: Negative for chest pain, palpitations, and edema, Respiratory: Negative for shortness of breath, cough, wheezing, and pleuritic chest pain, Abdomen/GI: Negative for abdominal pain, nausea, vomiting, diarrhea, and constipation, : Negative for injury, bleeding, discharge, and swelling, MS/Extremity: Negative for injury and deformity, Skin: Negative for injury, rash, and discoloration, Neuro: Negative for headache, weakness, numbness, tingling, and seizure, Psych: Negative for depression, anxiety, suicide ideation, homicidal ideation, and hallucinations, Allergy/Immunology: Negative for hives, rash, and allergies, Endocrine: Negative for neck swelling, polydipsia, polyuria, polyphagia, and marked weight changes, Hematologic/Lymphatic: Negative for swollen nodes, abnormal bleeding, and unusual bruising, 10:11 Back: Positive for decreased range of motion, pain with movement, radiated pain, Exam: 10:11 Constitutional: This is a well developed, well nourished patient who is awake, alert, ericka and in no acute distress. Head/Face: Normocephalic, atraumatic. Eyes: Pupils equal round and reactive to light, extra-ocular motions intact. Lids and lashes normal. Conjunctiva and sclera are non-icteric and not injected. Cornea within normal limits. Periorbital areas with no swelling, redness, or edema. ENT: Nares patent. No nasal discharge, no septal abnormalities noted. Tympanic membranes are normal and external auditory canals are clear. Oropharynx with no redness, swelling, or masses, exudates, or evidence of obstruction, uvula midline. Mucous membranes moist. Neck: Trachea midline, no thyromegaly or masses palpated, and no cervical lymphadenopathy. Supple, full range of motion without nuchal rigidity, or vertebral point tenderness. No Meningismus. Chest/axilla: Normal chest wall appearance and motion. Nontender with no deformity. No lesions are appreciated. Cardiovascular: Regular rate and rhythm with a normal S1 and S2. No gallops, murmurs, or rubs. Normal PMI, no JVD. No pulse deficits. Respiratory: Lungs have equal breath sounds bilaterally, clear to auscultation and percussion. No rales, rhonchi or wheezes noted. No increased work of breathing, no retractions or nasal flaring. Abdomen/GI: Soft, non-tender, with normal bowel sounds. No distension or tympany. No guarding or rebound. No evidence of tenderness throughout. Male : Normal genitalia with no discharge or lesions. Skin: Warm, dry with normal turgor. Normal color with no rashes, no lesions, and no evidence of cellulitis. MS/ Extremity: Pulses equal, no cyanosis. Neurovascular intact. Full, normal range of motion. Neuro: Awake and alert, GCS 15, oriented to person, place, time, and situation. Cranial nerves II-XII grossly intact. Motor strength 5/5 in all extremities. Sensory grossly intact. Cerebellar exam normal. Normal gait. Psych: Awake, alert, with orientation to person, place and time. Behavior, mood, and affect are within normal limits. 10:11 Back: pain, that is mild, ROM is painful, normal spinal alignment noted, CVA tenderness, is absent, Vital Signs: 09:36 Pulse 88; Resp 16; Temp 98.2; Pulse Ox 96% ; iw 09:51 BP 160 / 93; Pulse 84; Resp 18; Pulse Ox 93% on R/A; ld1 10:55 BP 137 / 81; Pulse 81; Resp 18; Pulse Ox 95% ; cp4 MDM: 09:30 Patient medically screened. [facility] 03/12 09:48 Order name: CBC with Diff; Complete Time: 11:14 [facility] 03/12 09:48 Order name: Comprehensive Metabolic Panel; Complete Time: 11:14 [facility] 03/12 09:48 Order name: CT Lumbar Spine Wo Con; Complete Time: 11:14 ericka Administered Medications: 10:43 Drug: NS 0.9% IV 1000 ml IV at 1 bolus Per protocol; 1000 mL bolus Route: IV; Rate: 1 cp4 bolus; Site: left antecubital; 10:43 Drug: Ketorolac IVP 15 mg IVP once Route: IVP; Site: left antecubital; cp4 10:43 Drug: Diazepam PO 5 mg PO once Route: PO; cp4 10:43 Drug: fentaNYL (PF) IM 25 mcg IM once Route: IM; Site: left deltoid; cp4 10:43 Drug: Ondansetron IVP 4 mg IVP once; over 2 minutes Route: IVP; Site: left antecubital; cp4 10:43 Drug: Decadron - Dexamethasone IVP 10 mg IVP once Route: IVP; Site: left antecubital; cp4 Disposition Summary: 03/12/24 11:15 Discharge Ordered Notes: Location: Home ericka Problem: new ericka Symptoms: have improved ericka Condition: Stable ericka Diagnosis - Sciatica ericka - Sciatica, left side ericka - Pain in left leg ericka - Spondylolysis, lumbar region ericka Followup: ericka - With: Private Physician - When: 2 - 3 days - Reason: Recheck today's complaints, Continuance of care, Re-evaluation by your physician Followup: ericka - With: Ryan Rodriguez MD - When: 2 - 3 days - Reason: Recheck today's complaints, Re-evaluation by your physician Discharge Instructions: - Discharge Summary Sheet ericka - Musculoskeletal Pain ericka - Sciatica ericka - How to Use Cold Therapy, Edby-bh-Ngsz ericka - Degenerative Disk Disease ericka - Sciatica, Jrns-em-Bvpu ericka - Back Exercises, Gkgl-id-Ciei ericka - Radicular Pain ericka - Spondylolysis ericka Forms: - Medication Reconciliation Form ericka - Antibiotic Education ericka - Prescription Opioid Use ericka - Patient Portal Instructions ericka - Leadership Thank You Letter [facility] Prescriptions: - dexamethasone 4 mg Oral tablet - take 1 tablet ORAL route daily; 5 tablet; Refills: 0, Product Selection [facility] Permitted - Diclofenac Sodium 75 mg Oral Tablet Sustained Release - take 1 tablet ORAL route 2 times per day; 30 tablet; Refills: 0, Product [facility] Selection Permitted - Cyclobenzaprine 5 mg Oral Tablet - take 1 tablet ORAL route 3 times per day As needed; 15 tablet; Refills: 0, [facility] Product Selection Permitted Signatures: Dispatcher [employer] EDPatrick Hernandez MD MD cha Williams, Irene RN DANIELA iw Leticia Mercer RN RN ld1 Nishi Hardy cp4 Corrections: (The following items were deleted from the chart) 09:48 09:48 Spine Lumbar Wo Con+CT.RAD.BRZ ordered. [facility]
[2024-03-12 11:38] VITALS: BP 137/81; TEMP 98.2; O2SAT 95
== END 2024-03-12 11:28 | disposition home or self-care (01) ==
LOC: ER 09:27
DX: M54.32 Sciatica, left side (principal); M43.06 Spondylolysis, lumbar region
CPT/HCPCS: 85025; 36415; 80053; 72131; J3010; J1100; J2405; J7030; 96372; 96374; 96375; 99285

== ENCOUNTER 2024-11-25 18:49 | Emergency (ER) | payer MEDICARE, OTHER ==
--- OUTSIDE RECORDS SUMMARY | 2024-11-25 18:54 | XMS REPORT | Continuity of Care Document ---
Author Name Unknown Address [address] [place] [address] [facility] thconnect Address [address] [place] [address] Care Team Providers Care Box [place] Upholsterer Name Role Phone Pcp, Patient Does Not Have A Primary Care Physic sabiha CLAUDINE ENCINAS Attending Clinician Unavailable Claudine Encinas MD Attending Clinician [phone], [facility] Attending Clinician Unavailable Pob, [facility] Main Attending Clinician UnavailErlinda Urias DO Attending Clinician [phone] ERLINDA BANKS Attending Clinician Unavailable HOLGER OLSON Attending Clinician Unavailable Holger Olson MD Attending Clinician [phone] Rm2, [facility] Proc Attending Clinician UnavailClaudine Ruffin MD Attending Clinician [phone] Rito Randhawa Attending Clinician Unavailable Doctor Unassigned, [place] Attending Clinician U MARIELA Saucedo Attending Clinician UnavailMariela Bailey Attending Clinician [phone] Pob, [facility] Main Attending Clinician UnavailAMALIA Castellanos Attending Clinician Amalia Jones MD Attending Clinician [phone] Emily Hernandez MD Attending Clinician , [facility] S[facility] Spec Procedure Attending Clinician Unavailable EMILY HERNANDEZ Attending Clinician Unavailable CLAUDINE ENCINAS Admitting Clinician Unavailable Claudine Encinas MD Admitting Clinician [phone] Physician, No Primary or Family Admitting Clinic sabiha Unavailable AMALIA FRAGA Admitting Clinician Amalia Jones MD Admitting Clinician [phone] Payers Payer Name Policy Type Policy Number Effective Date Expirati on Date Source [employer] MED[employer]ARE ADVANTAGE [id number] 2022 00:00:00 Problems Condition Name Condition Details Condition Category Status Onset Date Resolution Date Last Treatment Date Treating Clinician Comments Source Benign prostatic hyperplasi a with nocturia Benign prostatic hyperplasi a with nocturia Disease Active - 00:00: 00 [facility] Retention of urine, unspecifie d Retention of urine, unspecifie d Disease Active - 00:00: 00 [facility] Urgency of urination Urgency of urination Disease Active - 00:00: 00 [facility] Preoperati ve cardiovasc ular examinatio n Preoperati ve cardiovasc ular examinatio n Disease Active 2023-11 0- 00:00: 00 [facility] No known active problems No known active problems Disease [facility] Allergies, Adverse Reactions, Alerts Allergy Name Allergy Type Status Severity Reaction(s) Onset Date Inactive Date Treating Clinician Comments Source No Known Allergie s DA Active U 7-15 00:00: 00 [facility] NO KNOWN ALLERGIE S Drug Class Active [facility] Social History Social Habit Start Date Stop Date Quantity Comments Source History of tobacco use Current smoker [facility] Gender identity [facility] Alcoholic beverage intake 2024-11-22 00:00:00 2024-11-22 00:00:00 Ex-drinker (finding) [facility] Alcohol Comment 2024-11-22 00:00:00 2024-11-22 00:00:00 quit [facility] History of Social function 2024-06-12 00:00:00 2024-06-12 00:00:00 [facility] Exposure to SARS-CoV-2 (event) 2023-03-25 00:00:00 2023-04-04 13:11:00 Not sure [facility] Tobacco use and exposure 2022-04-05 00:00:00 2022-04-05 00:00:00 Smokeless tobacco non-user [facility] Sex assigned at 1955 00:00:00 1955 00:00:00 [facility] Smoking Status Start Date Stop Date Source Ex-smoker 2022-04-05 00:00:00 2022-04-05 00:00:00 [facility] Medications Ordered Medication Name Filled Medication Name Start Date Stop Date Current Medication? Ordering Clinician Indication Dosage Frequency Signature (SIG) Comments Components Source ondansetron (ZOFRAN (PF)) injection 4 mg 11-22 14:37: 25 11-22 18:27 :11 No 4mg 4 mg, Slow IV Push, Q4HPRN, 1 dose, Starting on Carine 11/22/24 at 0837, Until Carine 11/22/24 at 1227, Administer over 2-5 Minutes, 2 mL, [facility] Recovery [facility] ondansetron (ZOFRAN (PF)) injection 4 mg 11-22 14:37: 20 11-22 18:27 :11 No 4mg 4 mg, Slow IV Push, PRN, 1 dose, Starting on Carine 11/22/24 at 0837, Until Carine 11/22/24 at 1227, Administer over 2-5 Minutes, 2 mL, PACU [facility] lidocaine (XYLOCAINE) 2 % jelly [id number]-[id number] 11-22 14:19: 00 11-22 18:27 :11 No PRN, Starting on Carine 11/22/24 at 0819, Until Carine 11/22/24 at 1227, Routine, Intra-op [facility] sodium chloride 0.9 % irrigation solution 11-22 13:59: 00 Yes PRN, Starting on Carine 11/22/24 at 0759, Until Discontinu ed, Intra-op [facility] sodium chloride 0.9 % irrigation solution 11-22 13:58: 00 11-22 14:35 :59 No PRN, Starting on Carine 11/22/24 at 0758, Until Carine 11/22/24 at 0835, Intra-op [facility] cephALEXin 250 mg capsule 11-22 00:00: 00 11-28 05:59 :00 Yes [id number] 500mg Take 2 capsules by mouth every 12 (twelve) hours for 5 days. [facility] gabapentin 300 mg capsule 2023-11 00:00: 00 11-17 05:59 :00 No 300mg Take 1 capsule by mouth. [facility] naproxen 500 mg tablet 2023-11 00:00: 00 11-17 05:59 :00 No 500mg Take 1 tablet by mouth. [facility] cyanocobala min, vitamin B-12, (VITAMIN B12 ORAL) 07-25 11:08: 24 Yes 1{tbl} Take 1 tablet by mouth daily. [facility] phenylephri ne (VAZCULEP) injection 0.2 mg 2022-11 22:15: 00 09-20 22:04 :00 No [id number] .2mg [facility] alprostadiL (EDEX) injection 25 mcg 2022-11 22:15: 00 09-20 22:04 :00 No [id number] 25ug [facility] phenylephri ne (VAZCULEP) injection 0.2 mg 2022-11 22:15: 00 09-20 22:04 :00 No [id number] 200ug 0.2 mg (200 mcg), Intravenou s, ONCE, 1 dose, On 09/20/23 at 1615, Routine [facility] mirabegron (MYRBETRIQ) 25 mg tablet 5- 00:00: 00 07-25 00:00 :00 No [id number] 25mg Take 1 tablet by mouth in the morning. [facility] prednisoLON E acetate 1 % ophthalmic suspension drops 4-29 00:00: 00 07-25 00:00 :00 No INSTILL 1 DROP INTO RIGHT EYE EVERY 6 HOURS WHILE AWAKE [facility] erythromyci n 5 mg/gram (0.5 %) ophthalmic ointment 3-31 00:00: 00 07-25 00:00 :00 No APPLY A SMALL AMOUNT INTO RIGHT EYE EVERY 4 HOURS [facility] moxifloxaci n 0.5 % ophthalmic drops 3-30 00:00: 00 07-25 00:00 :00 No INSTILL 1 DROP INTO RIGHT EYE EVERY 2 HOURS [facility] tamsulosin (FLOMAX) 0.4 mg 24 hr capsule 2-27 00:00: 00 07-25 00:00 :00 No [id number] 01 .4mg Take 1 capsule by mouth in the morning. [facility] oxybutynin 10 mg 24 hr tablet 2-27 00:00: 00 04-04 00:00 :00 No [id number] 10mg Take 1 tablet by mouth in the morning. [facility] ketorolac 0.5 % ophthalmic solution 2-24 00:00: 00 07-25 00:00 :00 No INSTILL1 DROP INTO LEFT EYE DAILY FOR 2 WEEKS [facility] lactated ringers IV infusion 1,000 mL 01-06 18:45: 00 Yes 1000mL at 50 mL/hr, 1,000 mL, IV Infusion, CONTINUOUS , Starting on Carine 01/06/23 at 1245, Until Discontinu ed, Routine, PACU [facility] ondansetron (ZOFRAN (PF)) injection 4 mg 01-06 18:41: 22 Yes 4mg 4 mg, Slow IV Push, PRN, 1 dose, Starting on Carine 01/06/23 at 1241, Until Discontinu ed, Routine, Nausea and Vomiting (N/V), PACU [facility] neomycin-po lymyxin-dex amethasone (MAXITROL) 3.5 mg/g-10,000 unit/g-0.1 % ophthalmic ointment 01-06 18:07: 00 01-06 18:25 :28 No PRN, Starting on Carine 01/06/23 at 1207, Until Carine 01/06/23 at 1225, Routine, Intra-op [facility] tetracaine (PONTOCAINE ) 0.5 % ophthalmic drops 01-06 18:04: 00 01-06 18:25 :28 No PRN, Starting on Carine 01/06/23 at 1204, Until Carine 01/06/23 at 1225, Routine, Intra-op [facility] eye block syringe 11 mL 01-06 18:03: 00 01-06 18:25 :28 No PRN, Starting on Carine 01/06/23 at 1203, Until Carine 01/06/23 at 1225, Intra-op [facility] gentamicin injection 01-06 18:03: 00 01-06 18:25 :28 No PRN, Starting on Carine 01/06/23 at 1203, Until Carine 01/06/23 at 1225, ELLIOTT, Intra-op [facility] NaCl 0.9% (NS) injection 01-06 18:02: 00 01-06 18:25 :28 No PRN, Starting on Carine 01/06/23 at 1202, Until Carine 01/06/23 at 1225, Routine, Intra-op [facility] water for irrigation irrigation solution 01-06 18:02: 00 01-06 18:25 :28 No PRN, Starting on Carine 01/06/23 at 1202, Until Carine 01/06/23 at 1225, Routine, Intra-op [facility] EPINEPHrine (PF) 1:1,000 (1 mg/mL) (ADRENALIN (PF)) injection 01-06 18:00: 00 01-06 18:25 :28 No PRN, Starting on Carine 01/06/23 at 1200, Until Carine 01/06/23 at 1225, Routine, Intra-op [facility] chondroitin sulf-sod hyaluronate (DUOVISC VISCO ELASTIC) intraocular injection 01-06 17:59: 00 01-06 18:25 :28 No PRN, Starting on Carine 01/06/23 at 1159, Until Carine 01/06/23 at 1225, Routine, Intra-op [facility] dexamethaso ne (DECADRON PHOSPHATE) injection 01-06 17:59: 00 01-06 18:25 :28 No PRN, Starting on Carine 01/06/23 at 1159, Until Carine 01/06/23 at 1225, Routine, Intra-op [facility] ceFAZolin (ANCEF) injection 01-06 17:59: 00 01-06 18:25 :28 No PRN, Starting on Carine 01/06/23 at 1159, Until Carine 01/06/23 at 1225, ELLIOTT, Intra-op [facility] balanced salt soln no.2 irrig. (BSS) ophthalmic solution 01-06 17:58: 00 01-06 18:25 :28 No PRN, Starting on Carine 01/06/23 at 1158, Until Carine 01/06/23 at 1225, Routine, Intra-op [facility] cyclopent 1%-tropic 1%-phenyl 2.5%-ketor 0.5% (MYDRIATIC #5) ophthalmic solution syringe 0.5 mL 01-06 17:45: 00 01-06 16:49 :00 No .5mL 0.5 mL, Left Eye, ONCE, 1 dose, On Carine 01/06/23 at 1145, Routine, [facility] Pre-op [facility] tadalafiL (CIALIS) 20 mg tablet 2021-11 00:00: 00 Yes [id number] 20mg Take 1 tablet by mouth as needed for Erectile dysfunctio n (2 hrs prior to sexual activity, 2-3 times/week ). [facility] oxybutynin chloride 5 mg tablet 2021-11 00:00: 00 01-10 00:00 :00 No [id number] 5mg Take 1 tablet by mouth in the morning and 1 tablet in the evening. Do all this for 120 days. [facility] tamsulosin (FLOMAX) 0.4 mg 24 hr capsule 03-08 00:00: 00 01-10 23:49 :19 No [id number] 01 .4mg Take 1 capsule by mouth daily. [facility] Immunizations Ordered Immunization Name Filled Immunization Name Date Status Comments Source SARS-COV-2 COVID-19 PFIZER VACCINE 2021-02-19 00:00:00 Completed [facility] SARS-COV-2 COVID-19 PFIZER VACCINE 2021-02-19 00:00:00 Completed [facility] SARS-COV-2 COVID-19 PFIZER VACCINE 2021-02-19 00:00:00 Completed [facility] SARS-COV-2 COVID-19 PFIZER VACCINE 2021-02-19 00:00:00 Completed [facility] SARS-COV-2 COVID-19 PFIZER VACCINE 2021-02-19 00:00:00 Completed [facility] SARS-COV-2 COVID-19 PFIZER VACCINE 2021-02-19 00:00:00 Completed [facility] SARS-COV-2 COVID-19 PFIZER VACCINE 2021-02-19 00:00:00 Completed [facility] SARS-COV-2 COVID-19 PFIZER VACCINE 2021-02-19 00:00:00 Completed [facility] SARS-COV-2 COVID-19 PFIZER VACCINE 2021-02-19 00:00:00 Completed [facility] SARS-COV-2 COVID-19 PFIZER VACCINE 2021-02-19 00:00:00 Completed [facility] SARS-COV-2 COVID-19 PFIZER VACCINE 2021-02-19 00:00:00 Completed [facility] SARS-COV-2 COVID-19 PFIZER VACCINE 2021-02-19 00:00:00 Completed [facility] SARS-COV-2 COVID-19 PFIZER VACCINE 2021-02-19 00:00:00 Completed [facility] SARS-COV-2 COVID-19 PFIZER VACCINE 2021-02-19 00:00:00 Completed [facility] SARS-COV-2 COVID-19 PFIZER VACCINE 2021-02-19 00:00:00 Completed [facility] SARS-COV-2 COVID-19 PFIZER VACCINE 2021-02-19 00:00:00 Completed [facility] SARS-COV-2 COVID-19 PFIZER VACCINE 2021-02-19 00:00:00 Completed [facility] SARS-COV-2 COVID-19 PFIZER VACCINE 2021-02-19 00:00:00 Completed [facility] SARS-COV-2 COVID-19 PFIZER VACCINE 2021-02-19 00:00:00 Completed [facility] SARS-COV-2 COVID-19 PFIZER VACCINE 2021-02-19 00:00:00 Completed [facility] SARS-COV-2 COVID-19 PFIZER VACCINE 2021-02-19 00:00:00 Completed [facility] SARS-COV-2 COVID-19 PFIZER VACCINE 2021-02-19 00:00:00 Completed [facility] SARS-COV-2 COVID-19 PFIZER VACCINE 2021-02-19 00:00:00 Completed [facility] SARS-COV-2 COVID-19 PFIZER VACCINE 2021-01-28 00:00:00 Completed [facility] SARS-COV-2 COVID-19 PFIZER VACCINE 2021-01-28 00:00:00 Completed [facility] SARS-COV-2 COVID-19 PFIZER VACCINE 2021-01-28 00:00:00 Completed [facility] SARS-COV-2 COVID-19 PFIZER VACCINE 2021-01-28 00:00:00 Completed [facility] SARS-COV-2 COVID-19 PFIZER VACCINE 2021-01-28 00:00:00 Completed [facility] SARS-COV-2 COVID-19 PFIZER VACCINE 2021-01-28 00:00:00 Completed [facility] SARS-COV-2 COVID-19 PFIZER VACCINE 2021-01-28 00:00:00 Completed [facility] SARS-COV-2 COVID-19 PFIZER VACCINE 2021-01-28 00:00:00 Completed [facility] SARS-COV-2 COVID-19 PFIZER VACCINE 2021-01-28 00:00:00 Completed [facility] SARS-COV-2 COVID-19 PFIZER VACCINE 2021-01-28 00:00:00 Completed [facility] SARS-COV-2 COVID-19 PFIZER VACCINE 2021-01-28 00:00:00 Completed [facility] SARS-COV-2 COVID-19 PFIZER VACCINE 2021-01-28 00:00:00 Completed [facility] SARS-COV-2 COVID-19 PFIZER VACCINE 2021-01-28 00:00:00 Completed [facility] SARS-COV-2 COVID-19 PFIZER VACCINE 2021-01-28 00:00:00 Completed [facility] SARS-COV-2 COVID-19 PFIZER VACCINE 2021-01-28 00:00:00 Completed [facility] SARS-COV-2 COVID-19 PFIZER VACCINE 2021-01-28 00:00:00 Completed [facility] SARS-COV-2 COVID-19 PFIZER VACCINE 2021-01-28 00:00:00 Completed [facility] SARS-COV-2 COVID-19 PFIZER VACCINE 2021-01-28 00:00:00 Completed [facility] SARS-COV-2 COVID-19 PFIZER VACCINE 2021-01-28 00:00:00 Completed [facility] SARS-COV-2 COVID-19 PFIZER VACCINE 2021-01-28 00:00:00 Completed [facility] SARS-COV-2 COVID-19 PFIZER VACCINE 2021-01-28 00:00:00 Completed [facility] SARS-COV-2 COVID-19 PFIZER VACCINE 2021-01-28 00:00:00 Completed [facility] SARS-COV-2 COVID-19 PFIZER VACCINE 2021-01-28 00:00:00 Completed [facility] SARS-COV-2 COVID-19 PFIZER VACCINE Unknown Completed [facility] SARS-COV-2 COVID-19 PFIZER VACCINE Unknown Completed [facility] SARS-COV-2 COVID-19 PFIZER VACCINE Unknown Completed [facility] SARS-COV-2 COVID-19 PFIZER VACCINE Unknown Completed [facility] SARS-COV-2 COVID-19 PFIZER VACCINE Unknown Completed [facility] SARS-COV-2 COVID-19 PFIZER VACCINE Unknown Completed [facility] SARS-COV-2 COVID-19 PFIZER VACCINE Unknown Completed [facility] SARS-COV-2 COVID-19 PFIZER VACCINE Unknown Completed [facility] SARS-COV-2 COVID-19 PFIZER VACCINE Unknown Completed [facility] SARS-COV-2 COVID-19 PFIZER VACCINE Unknown Completed [facility] SARS-COV-2 COVID-19 PFIZER VACCINE Unknown Completed [facility] SARS-COV-2 COVID-19 PFIZER VACCINE Unknown Completed [facility] SARS-COV-2 COVID-19 PFIZER VACCINE Unknown Completed [facility] Vital Signs Vital Name Observation Time Observation Value Comments S ource Systolic blood pressure 2024-11-22 15:58:00 147 mm[Hg] [facility] Diastolic blood pressure 2024-11-22 15:58:00 89 mm[Hg] [facility] Heart rate 2024-11-22 15:58:00 72 /min [facility] Body temperature 2024-11-22 15:58:00 36.17 [facility] Respiratory rate 2024-11-22 15:58:00 18 /min [facility] Oxygen saturation in Arterial blood by Pulse oximetry 2024-11-22 15:58:00 98 /min [facility] Body height 2024-11-22 12:40:00 177.8 cm [facility] Body weight 2024-11-22 12:40:00 110.678 kg [facility] BMI 2024-11-22 12:40:00 35.01 kg/m2 [facility] Systolic blood pressure 2024-11-22 14:58:00 152 mm[Hg] [facility] Diastolic blood pressure 2024-11-22 14:58:00 97 mm[Hg] [facility] Heart rate 2024-11-22 14:58:00 75 /min [facility] Respiratory rate 2024-11-22 14:58:00 10 /min [facility] Oxygen saturation in Arterial blood by Pulse oximetry 2024-11-22 14:58:00 97 /min [facility] Body temperature 2024-11-22 14:33:00 36.39 [facility] Body height 2024-11-22 12:40:00 177.8 cm [facility] Body weight 2024-11-22 12:40:00 110.678 kg [facility] BMI 2024-11-22 12:40:00 35.01 kg/m2 [facility] Systolic blood pressure 2024-11-15 20:54:00 129 mm[Hg] [facility] Diastolic blood pressure 2024-11-15 20:54:00 75 mm[Hg] [facility] Heart rate 2024-11-15 20:54:00 79 /min [facility] Oxygen saturation in Arterial blood by Pulse oximetry 2024-11-15 20:54:00 93 /min [facility] Body temperature 2024-11-15 20:51:00 35.94 [facility] Respiratory rate 2024-11-15 20:51:00 20 /min [facility] Body weight 2024-11-15 20:51:00 110.678 kg [facility] BMI 2024-11-15 20:51:00 35.01 kg/m2 [facility] Systolic blood pressure 2024-09-04 20:44:00 131 mm[Hg] [facility] Diastolic blood pressure 2024-09-04 20:44:00 72 mm[Hg] [facility] Heart rate 2024-09-04 20:44:00 95 /min [facility] Body height 2024-09-04 20:44:00 177.8 cm [facility] Body weight 2024-09-04 20:44:00 111.585 kg [facility] BMI 2024-09-04 20:44:00 35.30 kg/m2 [facility] Oxygen saturation in Arterial blood by Pulse oximetry 2024-09-04 20:44:00 95 /min [facility] Systolic blood pressure 2024-08-22 18:45:00 128 mm[Hg] [facility] Diastolic blood pressure 2024-08-22 18:45:00 67 mm[Hg] [facility] Heart rate 2024-08-22 18:45:00 86 /min [facility] Body temperature 2024-08-22 18:45:00 36.44 [facility] Respiratory rate 2024-08-22 18:45:00 20 /min [facility] Body weight 2024-08-22 18:45:00 110.678 kg [facility] BMI 2024-08-22 18:45:00 35.01 kg/m2 [facility] Oxygen saturation in Arterial blood by Pulse oximetry 2024-08-22 18:45:00 93 /min [facility] Systolic blood pressure 2024-07-25 14:42:00 137 mm[Hg] [facility] Diastolic blood pressure 2024-07-25 14:42:00 73 mm[Hg] [facility] Heart rate 2024-07-25 14:42:00 81 /min [facility] Body temperature 2024-07-25 14:42:00 36.83 [facility] Respiratory rate 2024-07-25 14:42:00 18 /min [facility] Body height 2024-07-25 14:42:00 177.8 cm [facility] Body weight 2024-07-25 14:42:00 107.775 kg [facility] BMI 2024-07-25 14:42:00 34.09 kg/m2 [facility] Oxygen saturation in Arterial blood by Pulse oximetry 2024-07-25 14:42:00 93 /min [facility] Systolic blood pressure 2024-06-12 21:17:00 130 mm[Hg] [facility] Diastolic blood pressure 2024-06-12 21:17:00 87 mm[Hg] [facility] Heart rate 2024-06-12 21:17:00 91 /min [facility] Body temperature 2024-06-12 21:17:00 36.11 [facility] Respiratory rate 2024-06-12 21:17:00 18 /min [facility] Body weight 2024-06-12 21:17:00 109.317 kg [facility] BMI 2024-06-12 21:17:00 34.58 kg/m2 [facility] Oxygen saturation in Arterial blood by Pulse oximetry 2024-06-12 21:17:00 95 /min [facility] Systolic blood pressure 2023-09-20 20:53:00 134 mm[Hg] [facility] Diastolic blood pressure 2023-09-20 20:53:00 79 mm[Hg] [facility] Heart rate 2023-09-20 20:53:00 77 /min [facility] Respiratory rate 2023-09-20 20:53:00 18 /min [facility] Body height 2023-09-20 20:53:00 177.8 cm [facility] Body weight 2023-09-20 20:53:00 108.41 kg [facility] BMI 2023-09-20 20:53:00 34.29 kg/m2 [facility] Systolic blood pressure 2023-07-05 16:23:00 139 mm[Hg] [facility] Diastolic blood pressure 2023-07-05 16:23:00 81 mm[Hg] [facility] Heart rate 2023-07-05 16:23:00 69 /min [facility] Body temperature 2023-07-05 16:23:00 36.44 [facility] Respiratory rate 2023-07-05 16:23:00 18 /min [facility] Body height 2023-07-05 16:23:00 177.8 cm [facility] Body weight 2023-07-05 16:23:00 110.768 kg [facility] BMI 2023-07-05 16:23:00 35.04 kg/m2 [facility] Oxygen saturation in Arterial blood by Pulse oximetry 2023-07-05 16:23:00 95 /min [facility] Systolic blood pressure 2023-04-04 18:34:00 128 mm[Hg] [facility] Diastolic blood pressure 2023-04-04 18:34:00 90 mm[Hg] [facility] Heart rate 2023-04-04 18:34:00 83 /min [facility] Oxygen saturation in Arterial blood by Pulse oximetry 2023-04-04 18:34:00 92 /min [facility] Body temperature 2023-04-04 18:32:00 36.5 [facility] Respiratory rate 2023-04-04 18:32:00 18 /min [facility] Body weight 2023-04-04 18:32:00 109.77 kg [facility] BMI 2023-04-04 18:32:00 34.72 kg/m2 [facility] Systolic blood pressure 2023-01-10 22:43:00 153 mm[Hg] [facility] Diastolic blood pressure 2023-01-10 22:43:00 83 mm[Hg] [facility] Heart rate 2023-01-10 22:42:00 84 /min [facility] Body temperature 2023-01-10 22:42:00 36.67 [facility] Respiratory rate 2023-01-10 22:42:00 18 /min [facility] Body height 2023-01-10 22:42:00 177.8 cm [facility] Body weight 2023-01-10 22:42:00 106.142 kg [facility] BMI 2023-01-10 22:42:00 33.58 kg/m2 [facility] Systolic blood pressure 2023-01-06 18:47:00 159 mm[Hg] [facility] Diastolic blood pressure 2023-01-06 18:47:00 94 mm[Hg] [facility] Heart rate 2023-01-06 18:47:00 58 /min [facility] Respiratory rate 2023-01-06 18:47:00 12 /min [facility] Oxygen saturation in Arterial blood by Pulse oximetry 2023-01-06 18:47:00 97 /min [facility] Body temperature 2023-01-06 18:27:00 36.17 [facility] Body height 2022-12-29 20:00:00 177.8 cm [facility] Body weight 2022-12-29 20:00:00 95.255 kg [facility] BMI 2022-12-29 20:00:00 30.13 kg/m2 [facility] Systolic blood pressure 2023-01-06 18:47:00 159 mm[Hg] [facility] Diastolic blood pressure 2023-01-06 18:47:00 94 mm[Hg] [facility] Heart rate 2023-01-06 18:47:00 58 /min [facility] Respiratory rate 2023-01-06 18:47:00 12 /min [facility] Oxygen saturation in Arterial blood by Pulse oximetry 2023-01-06 18:47:00 97 /min [facility] Body temperature 2023-01-06 18:27:00 36.17 [facility] Body height 2022-12-29 20:00:00 177.8 cm [facility] Body weight 2022-12-29 20:00:00 95.255 kg [facility] BMI 2022-12-29 20:00:00 30.13 kg/m2 [facility] Systolic blood pressure 2022-10-14 20:02:00 145 mm[Hg] [facility] Diastolic blood pressure 2022-10-14 20:02:00 84 mm[Hg] [facility] Heart rate 2022-10-14 20:02:00 73 /min [facility] Body temperature 2022-10-14 20:02:00 36.83 [facility] Respiratory rate 2022-10-14 20:02:00 18 /min [facility] Body height 2022-10-14 20:02:00 177.8 cm [facility] weight 2022-10-14 20:02:00 105.053 kg [facility] BMI 2022-10-14 20:02:00 33.23 kg/m2 [facility] Oxygen saturation in Arterial blood by Pulse oximetry 2022-10-14 20:02:00 95 /min [facility] Systolic blood pressure 2022-09-30 21:29:00 138 mm[Hg] [facility] Diastolic blood pressure 2022-09-30 21:29:00 83 mm[Hg] [facility] Heart rate 2022-09-30 21:29:00 72 /min [facility] Respiratory rate 2022-09-30 21:29:00 18 /min [facility] Body height 2022-09-30 21:29:00 177.8 cm [facility] Body weight 2022-09-30 21:29:00 107.321 kg [facility] BMI 2022-09-30 21:29:00 33.95 kg/m2 [facility] Oxygen saturation in Arterial blood by Pulse oximetry 2022-09-30 21:29:00 97 /min [facility] Systolic blood pressure 2022-09-30 19:51:00 138 mm[Hg] [facility] Diastolic blood pressure 2022-09-30 19:51:00 83 mm[Hg] [facility] Heart rate 2022-09-30 19:51:00 72 /min [facility] Body temperature 2022-09-30 19:51:00 36.61 [facility] Respiratory rate 2022-09-30 19:51:00 18 /min [facility] Body height 2022-09-30 19:51:00 177.8 cm [facility] Body weight 2022-09-30 19:51:00 107.321 kg [facility] BMI 2022-09-30 19:51:00 33.95 kg/m2 [facility] Oxygen saturation in Arterial blood by Pulse oximetry 2022-09-30 19:51:00 97 /min [facility] Systolic blood pressure 2022-04-05 15:20:00 122 mm[Hg] [facility] Diastolic blood pressure 2022-04-05 15:20:00 77 mm[Hg] [facility] Heart rate 2022-04-05 15:20:00 70 /min [facility] Respiratory rate 2022-04-05 15:20:00 17 /min [facility] Body height 2022-04-05 15:20:00 177.8 cm [facility] Body weight 2022-04-05 15:20:00 107.956 kg [facility] BMI 2022-04-05 15:20:00 34.15 kg/m2 [facility] Oxygen saturation in Arterial blood by Pulse oximetry 2022-04-05 15:20:00 95 /min [facility] Procedures Procedure Date / Time Performed Performing Clinician Source 32871 - MS LASER ENUCLEATION PROSTATE W/MORCELLATION 2024-11-22 13:11:00 [facility] ROB,POST-VOID RES,US,NON-IMAGING 2024-11-15 21:05:00 [facility] POCT URINALYSIS AUTO 2024-11-15 21:05:00 [facility] URIC ACID 2024-09-08 13:57:00 Erlinda Banks [facility] MAGNESIUM 2024-09-08 13:57:00 Erlinda Banks [facility] VITAMIN B12, LEVEL 2024-09-08 13:57:00 Erlinda Banks [facility] FOLATE 2024-09-08 13:57:00 Erlinda Banks [facility] THYROID STIMULATING HORMONE 2024-09-08 13:57:00 Erlinda Banks [facility] MICROALBUMIN URINE 2024-09-08 13:57:00 Erlinda Banks [facility] COMP. METABOLIC PANEL (04134) 2024-09-08 13:57:00 Erlinda Banks [facility] LIPID PANEL (35192)(TOTAL CHOLESTEROL, TRIGLYCERIDES, HDL) 2024-09-08 13:57:00 Erlinda Banks [facility] CBC WITH DIFF 2024-09-08 13:57:00 Erlinda Banks [facility] GLYCOSYLATED HEMOGLOBIN (A1C) 2024-09-08 13:57:00 Erlinda Banks [facility] URINALYSIS 2024-09-08 13:57:00 Erlinda Banks [facility] N-TERMINAL PRO-BNP 2024-09-08 13:57:00 Erlinda Banks [facility] VITAMIN D, 25-OH 2024-09-08 13:57:00 Erlinda Banks [facility] ROB,POST-VOID RES,US,NON-IMAGING 2024-08-22 18:49:00 Ce [facility] POCT URINALYSIS AUTO 2024-08-22 18:44:00 Ce [facility] CT PELVIS WO CONTRAST 2024-08-03 16:35:04 Ce [facility] ROB,POST-VOID RES,US,NON-IMAGING 2024-07-25 16:09:00 Ce [facility] POCT URINALYSIS AUTO 2024-07-25 14:48:00 Ce [facility] ROB,POST-VOID RES,US,NON-IMAGING 2024-06-12 21:25:00 [facility] PATIENT QUESTIONNAIRE 2023-09-20 06:01:00 Doctor Unassigned, [place] [facility] POCT URINALYSIS AUTO 2023-07-05 18:11[facility] 2023-04-04 18:09:55 Doctor Unassigned, [place] [facility] POCT URINALYSIS AUTO 2023-01-10 22:42:00 Mariela Melgar [facility] POCT URINALYSIS AUTO 2023-01-10 22:39:00 Mariela Melgar [facility] PHACOEMULSIFICATION OF CATARACT WITH INTRAOCULAR LENS IMPLANT 2023-01-06 17:52:00 Amalia Fraga [facility] ASSIGNMENT OF BENEFITS 2022-12-30 17:54:24 Doctor Unassigned, [place] [facility] MEDICAL RELEASE/CLEARANCE FORMS 2022-12-09 06:01:00 Doctor Unassigned, [place] [facility] POCT URINALYSIS AUTO 2022-10-14 19:58[facility] 2022-09-30 23:16:00 [facility] DISCLOSURE AND CONSENT, MEDICAL AND SURGICAL PROCEDURES 2022-09-30 06:01:00 Doctor Unassigned, [place] [facility] INSURANCE CORRESPONDENCE 2022-04-15 05:01:00 Doctor Unassigned, [place] [facility] HB ECG ROUTINE & RHYTHM STRIP 2022-04-05 15:26:53 Emily Hernandez [facility] Encounters Start Date/Time End Date/Time Encounter Type Admission Type Attending Clinicians Care Facility Care Department Encounter ID Source 2021-12-09 12:42:27 Outpatient [facility] [id number] [facility] 2024-11-22 06:29:00 2024-11-22 10:12:00 Outpatient R CLAUDINE ENCINAS [facility] [id number] [facility] 2024-11-22 06:29:00 2024-11-22 10:12:00 Hospital Encounter Claudine Encinas [facility] 1.2.840.114 350.1.13.10 4.2.7.2.686 [id number] [facility] 2024-11-22 07:15:00 2024-11-22 09:01:00 Surgery Claudine Encinas [facility] 1.2.840.114 350.1.13.10 4.2.7.2.686 [id number] [facility] 2024-11-15 00:00:00 2024-11-16 14:32:52 Telephone [facility] 1.2.840.114 350.1.13.10 4.2.7.2.686 [id number] [facility] 2024-11-15 15:30:00 2024-11-15 16:43:24 Outpatient R CLAUDINE ENCINAS [facility] [id number] [facility] 2024-11-15 15:30:00 2024-11-15 16:43:24 Office Visit Claudine Encinas [facility] 1.2.840.114 350.1.13.10 4.2.7.2.686 [id number] [facility] 2024-11-15 16:15:00 2024-11-15 16:30:00 Facepiece Line Supervisor Visit 2, Adc Lab Claudine Encinas 2, Adc Lab [facility] 1.2.840.114 350.1.13.10 4.2.7.2.686 [id number] [facility] 2024-09-08 09:45:00 2024-09-08 10:00:00 Facepiece Line Supervisor Visit Vicki, Adc Lab Main Erlinda Banks Podixon, Adc Lab Main [facility] 1.2.840.114 350.1.13.10 4.2.7.2.686 [id number] [facility] 2024-09-08 09:45:00 2024-09-08 09:45:00 Outpatient R ERLINDA BANKS [facility] [id number] [facility] 2024-09-04 15:30:00 2024-09-04 16:17:12 Outpatient R HOLGER OLSON [facility] [id number] [facility] 2024-09-04 15:30:00 2024-09-04 16:17:12 Office Visit Hol[facility] 1.2.840.114 350.1.13.10 4.2.7.2.686 [id number] [facility] 2024-08-22 14:00:00 2024-08-22 14:40:05 Outpatient R CE [facility] [id number] [facility] 2024-08-22 00:00:00 2024-08-22 14:37:12 Letter (Out) Ce [facility] 1.2.840.114 350.1.13.10 4.2.7.2.686 [id number] [facility] 2024-08-22 14:00:00 2024-08-22 14:15:00 Office Visit Ce [facility] BUILD[facility] 1.2.840.114 350.1.13.10 4.2.7.2.686 [id number] [facility] 2024-08-03 11:20:27 2024-08-03 23:59:00 Outpatient R CE [facility] [id number] [facility] 2024-08-03 11:15:00 2024-08-03 23:59:00 Hospital Encounter Ce [facility] 1.2.840.114 350.1.13.10 4.2.7.2.686 [id number] [facility] 2024-07-26 00:00:00 2024-07-26 11:05:47 Telephone Ce [facility] BUILDING 1.2.840.114 350.1.13.10 4.2.7.2.686 [id number] [facility] 2024-07-26 00:00:00 2024-07-26 10:24:22 Telephone CeClaudine [facility] 1.2.840.114 350.1.13.10 4.2.7.2.686 [id number] [facility] 2024-07-25 10:00:00 2024-07-25 11:39:47 Outpatient R CECLAUDINE [facility] [id number] [facility] 2024-07-25 10:00:00 2024-07-25 11:39:47 Office Visit Claudine Encinas Rm2, Adc Surg Proc Rm2, Adc Surg Proc [facility] 1.2.840.114 350.1.13.10 4.2.7.2.686 [id number] [facility] 2024-07-14 09:00:00 2024-07-14 09:15:00 Facepiece Line Supervisor Visit Pob, Adc Lab Main Lalo Encinasth Pob, Adc Lab Main [facility] 1.2.840.114 350.1.13.10 4.2.7.2.686 [id number] [facility] 2024-07-14 09:00:00 2024-07-14 09:00:00 Outpatient R CECLAUDINE [facility] [id number] [facility] 2024-06-26 15:30:00 2024-06-26 15:30:00 Outpatient R CE CLAUDINE [facility] [id number] [facility] 2024-06-25 00:00:00 2024-06-26 10:16:12 Telephone Ce [facility] BUILDING 1.2.840.114 350.1.13.10 4.2.7.2.686 [id number] [facility] 2024-06-15 13:30:00 2024-06-15 13:30:00 Outpatient R [facility] [id number] [facility] 2024-06-15 00:00:00 2024-06-15 08:40:34 [facility] 1.840.114 350.1.13.10 4.2.7.2.686 [id number] [facility] 2024-06-12 16:30:00 2024-06-12 17:17:33 Outpatient R CE [facility] [id number] [facility] 2024-06-12 16:30:00 2024-06-12 17:17:33 Office Visit Ce [facility] 1.840.114 350.1.13.10 4.2.7.2.686 [id number] [facility] 2024-05-28 11:48:00 2024-05-28 14:34:00 Emergency EM EdisRito [facility] [id number] [facility] 2024-01-17 11:30:00 2024-01-17 11:30:00 Outpatient R CE [facility] [id number] [facility] 2023-12-20 11:30:00 2023-12-20 11:30:00 Outpatient R DHRUVLUCIEWander [facility] [id number] [facility] 2023-11-25 00:00:00 2023-11-25 00:00:00 [facility] 1.840.114 350.1.13.10 4.2.7.2.686 [id number] [facility] 2023-09-23 00:00:00 2023-09-23 00:00:00 Telephone [facility] 1..114 350.1.13.10 4.2.7.2.686 [id number] [facility] 2023-09-20 14:30:00 2023-09-20 16:14:09 [facility] [id number] 2023-09-20 14:30:00 2023-09-20 16:14:09 [facility].114 350.1.13.10 4.2.7.2.686 [id number] [facility] 2023-09-20 00:00:00 2023-09-20 00:00:00 Orders Only Doctor Unassigned, [place] [facility] 1.840.114 350.1.13.10 4.2.7.2.686 [id number] [facility] 2023-08-31 14:00:00 2023-08-31 14:00:00 [facility] [id number] [facility] 2023-07-05 11:30:00 2023-07-05 11:59:09 Outpatient R MARIELA MELGAR [facility] [id number] [facility] 2023-07-05 11:30:00 2023-07-05 11:59:09 Office Visit Mariela Melgar [facility] 1..840.114 350.1.13.10 4.2.7.2.686 [id number] [facility] 2023-04-04 13:45:00 2023-04-04 14:02:48 Outpatient R ZOYA MELGARTNEY [facility] [id number] [facility] 2023-04-04 13:45:00 2023-04-04 14:02:48 [facility] 1.2.840.114 350.1.13.10 4.2.7.2.686 [id number] [facility] 2023-04-04 00:00:00 2023-04-04 00:00:00 Orders Only Doctor Unassigned, [place] [facility] 1.2840.114 350.1.13.10 4.2.7.2.686 [id number] [facility] 2023-01-10 16:30:00 2023-01-10 17:04:08 Outpatient R RAMÓN [facility] [id number] [facility] 2023-01-10 16:30:00 2023-01-10 17:04:08 Office Visit Ramón [facility] 1..840.114 350.1.13.10 4.2.7.2.686 [id number] [facility] 2023-01-10 07:45:00 2023-01-10 08:00:00 Facepiece Line Supervisor Visit Pob, Adc Lab Main Ramón [facility] BUILDING 1.284.114 350.1.13.10 4.2.7.2.686 [id number] [facility] 2023-01-06 10:26:00 2023-01-06 13:12:00 Outpatient R AMALIA FRAGA [facility] [id number] [facility] 2023-01-06 10:26:00 2023-01-06 13:12:00 Hospital Encounter Amalia Fraga [facility] 1.284.114 350.1.13.10 4.2.7.2.686 [id number] [facility] 2023-01-06 12:27:00 2023-01-06 13:04:00 Surgery Amalia Fraga [facility] 1.2.840.114 350.1.13.10 4.2.7.2.686 [id number] [facility] 2022-12-30 00:00:00 2022-12-30 00:00:00 Orders Only Doctor Unassigned, [place] [facility] 1.2.840.114 350.1.13.10 4.2.7.2.686 [id number] [facility] 2022-12-09 00:00:00 2022-12-09 00:00:00 Telephone Emily Hernandez [facility]ILD[facility] 1.2.840.114 350.1.13.10 4.2.7.2.686 [id number] [facility] 2022-12-09 00:00:00 2022-12-09 00:00:00 Orders Only Doctor Unassigned, [place] [facility] 1.2.840.114 350.1.13.10 4.2.7.2.686 [id number] [facility] 2022-11-11 00:00:00 2022-11-11 00:00:00 Telephone Claudine Encinas [facility] 1.2.840.114 350.1.13.10 4.2.7.2.686 [id number] [facility] 2022-11-09 00:00:00 2022-11-09 00:00:00 [facility] 1.2.840.114 350.1.13.10 4.2.7.2.686 [id number] [facility] 2022-10-14 14:00:00 2022-10-14 15:30:30 Outpatient R CLAUDINE ENCINAS [facility] [id number] [facility] 2022-10-14 14:00:00 2022-10-14 15:30:30 Office Visit Ce Claudine [facility] 1.2.840.114 350.1.13.10 4.2.7.2.686 [id number] [facility] 2022-10-05 00:00:00 2022-10-05 00:00:00 Telephone Ce Claudine [facility] 1.2.840.114 350.1.13.10 4.2.7.2.686 [id number] [facility] 2022-09-30 15:00:00 2022-09-30 15:32:05 Office Visit Claudine Encinas, Adc Surg Spec Procedure [facility] 1.2.840.114 350.1.13.10 4.2.7.2.686 [id number] [facility] 2022-09-30 14:45:00 2022-09-30 14:45:00 Office Visit Ce Claudine [facility] 1.2.840.114 350.1.13.10 4.2.7.2.686 [id number] [facility] 2022-09-30 14:45:00 2022-09-30 14:08:08 Outpatient R CLAUDINE ENCINAS [facility] [id number] [facility] 2022-09-30 00:00:00 2022-09-30 00:00:00 Orders Only Doctor Unassigned, [place] [facility] 1.2.840.114 350.1.13.10 4.2.7.2.686 [id number] [facility] 2022-09-30 00:00:00 2022-09-30 00:00:00 Telephone Claudine Encinas [facility] 1.2840.114 350.1.13.10 4.2.7.2.686 [id number] [facility] 2022-04-29 00:00:00 2022-04-29 00:00:00 Patient Secure Msg David, [facility] OFFICE BUILDING 1.2840.114 350.1.13.10 4.2.7.2.686 [id number] [facility] 2022-04-22 00:00:00 2022-04-22 00:00:00 Patient Secure Msg David, [facility] BUILDING 1.20.114 350.1.13.10 4.2.7.2.686 [id number] [facility] 2022-04-21 07:39:55 2022-04-21 07:39:55 Outpatient R [facility] [id number] [facility] 2022-04-21 07:37:52 2022-04-21 07:38:00 Outpatient R [facility] [id number] [facility] 2022-04-17 00:00:00 2022-04-17 00:00:00 Patient Secure Msg Doctor Unassigned, [place] [facility] 1.0.114 350.1.13.10 4.2.7.2.686 [id number] [facility] 2022-04-15 00:00:00 2022-04-15 00:00:00 Orders Only Doctor Unassigned, [place] [facility] 1.20.114 350.1.13.10 4.2.7.2.686 [id number] [facility] 2022-04-05 10:20:00 2022-04-05 10:41:39 Office Visit David [facility] BU[facility] 1.2840.114 350.1.13.10 4.2.7.2.686 [id number] [facility] 2022-04-05 10:20:00 2022-04-05 10:41:39 Outpatient R KOKO [facility]NAN[facility]FORMERLY [facility] [id number] [facility] 2022-04-05 10:20:00 2022-04-05 10:41:39 Outpatient R JADON HERNANDEZFORMERLY [facility] [id number] [facility] 2022-03-08 13:45:00 2022-03-08 15:50:21 [facility] [id number] [facility] 2022-03-08 13:45:00 2022-03-08 15:50:21 Office Visit Claudine Encinas, Adc Surg Spec Procedure [facility] 1.840.114 350.1.13.10 4.2.7.2.686 [id number] [facility] 2022-03-08 13:45:00 2022-03-08 15:50:21 Outpatient R CLAUDINE ENCINAS [facility] [id number] [facility] 2022-03-08 00:00:00 2022-03-08 00:00:00 Patient Secure Msg Ce [facility] .84.114 350.1.13.10 4.2.7.2.686 [id number] [facility] 2022-03-08 00:00:00 2022-03-08 00:00:00 Orders Only Doctor Unassigned, [place] [facility] ..114 350.1.13.10 4.2.7.2.686 [id number] [id number] [facility] 2022-02-04 09:30:00 2022-02-04 10:55:08 Office Visit Claudine Encinas [facility] 1.840.114 350.1.13.10 4.2.7.2.686 [id number] [facility] 2022-02-04 09:30:00 2022-02-04 10:55:08 Outpatient R CLAUDINE ENCINAS [facility] [id number] [facility] 2022-02-04 09:30:00 2022-02-04 10:55:08 Outpatient R CE [facility] [id number] [facility] 2022-02-04 00:00:00 2022-02-04 00:00:00 Orders Only Doctor Unassigned, [place] [facility] 1..840.114 350.1.13.10 4.2.7.2.686 [id number] [facility] Results Test Description Test Time Test Comments Results Result Co mments Source [facility]-VO[facility],US,[id number] 21:05:00* Test Item Value Reference Range Interpretation Comme nts PVR (URINE VOLUME) (test code = 5193) 32 ml 0-100 [facility], [id number] 13:59:48* Test Item Value Reference Range Interpretation Comme [facility] VIT D 25OH (test code = 89480-9) 37 ng/mL 25-80 GEOVANI (test code = GEOVANI) Deficiency: <20 ng/mLInsufficiency : 20-24 ng/mLOptimal: 25-80 ng/mL Lab Interpretation (test code = 06799-6) Normal [facility]12, [id number] 00:18:57* Test Item Value Reference Range Interpretation Comme [facility] VIT B12 (test code = 3577384380) 985 pg/mL 240-930 H GEOVANI (test code = GEOVANI) Biotin has been reported to cause a positive bias, interpret results relative to patient's use of biotin. Lab Interpretation (test code = 08608-1) Abnormal [facility]olate2024-10-27 00:18:57* Test Item Value Reference Range Interpretation Comme nts FOLATE SER (test code = 1867811897) 9.8 ng/mL 3.0-20.0 Biotin has been reported to cause a positive bias, interpret results relative to patient's use of biotin. Lab Interpretation (test code = 87004-0) [facility] CenterThyroid Stimulating [id number] 15:35:53 * Test Item Value Reference Range Interpretation Comme nts TSH (test code = 7230871120) 1.25 0.45-4.70 Biotin has been reported to cause a negative bias, interpret results relative to patient's use of biotin. Lab Interpretation (test code = 01362-0) Normal [facility] CenterN-Terminal [id number] 15:14:14* Test Item Value Reference Range Interpretation Comme nts NT-proBNP (test code = 98089-2) 48 pg/mL <=125 Lab Interpretation (test cod e = 20750-5) Normal [facility] CenterMagnesium2024-10-26 15:06:16* Test Item Value Reference Range Interpretation Comme nts MAGNESIUM (test code = 8260074173) 2.1 mg/dL 1.7-2.4 Lab Interpretation (test cod e = 96285-0) Normal [facility] CenterLipid Panel (48532)(Total Cholesterol, Triglycerides, HDL)2024-09-08 15:06:16* Test Item Value Reference Range Interpretation Comme nts CHOL (test code = 7210567713) 191 mg/dL 120-200 HDL (test code = 5782264935) 46 mg/dL >=40 HDLC RATIO (test code = 5737555348) 4.2 <=5.0 TRIG (test code = 2497737915) 221 mg/dL 30-170 H LDL CHOL (test code = 30968-1) 101 mg/dL <=160 VLDL (test code = 9423306905) 44 mg/dL 5-60 Lab Interpretation (test cod e = 95834-8) [facility]normal [facility] CenterComp. Metabolic Panel (29280)2024-09-08 15:05:56* Test Item Value Reference Range Interpretation Comme nts NA (test code = 1167136598) 135 mmol/L 135-145 K (test code = 4576663574) 4.3 mmol/L 3.5-5.0 CL (test code = 9869858813) 105 mmol/L 98-108 CO2 TOTAL (test code = 5758284794) 27 mmol/L 23-31 AGAP (test code = 2567677233) 3 2-16 BUN (test code = 4482421698) 20 mg/dL 7-23 GLUCOSE (test code = 8984818286) 114 mg/dL 70-110 H CREATININE (test code = 2160-0) 0.74 mg/dL 0.60-1.25 TOTAL BILI (test code = 0378827609) 0.7 mg/dL 0.1-1.1 CALCIUM (test code = 3389918483) 9.0 mg/dL 8.6-10.6 T PROTEIN (test code = 1373767185) 6.6 g/dL 6.3-8.2 ALBUMIN (test code = 1259388202) 4.1 g/dL 3.5-5.0 ALK PHOS (test code = 1939183865) 64 U/L 34-122 ALTv (test code = 1742-6) 27 U/L 5-50 AST(SGOT) (test code = 4056270323) 21 U/L 13-40 eGFR (test code = 83815-5) 98.7 mL/min/1.73m2 CKD-EPI eGFR (2020). Assuming creatinine has been stable day-to-day for at least three months, the eGFR indicates Category G1 (>= 90 mL/min/1.73 m2) Lab Interpretation (test code = 32061-8) [facility]normal [facility] CenterUric [id number] 15:05:36* Test Item Value Reference Range Interpretation Comme nts URIC ACID (test code = 5007855417) 5.2 mg/dL 3.6-8.0 Lab Interpretation (test cod e = 38378-7) Normal [facility] CenterGlycosylated Hemoglobin (A1C)2024-09-08 14:16:09* Test Item Value Reference Range Interpretation Comme nts HGB A1C (test code = 4548-4) 6.1 % 4.0-5.7 H GEOVANI (test code = GEOVANI) Reference RangesNormal: <5.7%Prediabetes: 5.7 - 6.4%Diabetes: > 6.5% Lab Interpretation (test code = 12337-9) Abnormal [facility] with [id number] 14:08:51* Test Item Value Reference Range Interpretation Comme nts WBC (test code = 6690-2) 6.16 4.20-10.70 RBC (test code = 789-8) 5.45 4.26-5.52 HGB (test code = 718-7) 16.6 g/dL 12.2-16.4 H HCT (test code = 4544-3) 49.6 % 38.4-49.3 H MCV (test code = 787-2) 91.0 fL 81.7-95.6 MCH (test code = 785-6) 30.5 pg 26.1-32.7 MCHC (test code = 786-4) 33.5 g/dL 31.2-35.0 RDW-SD (test code = 72887-9) 40.9 fL 38.5-51.6 RDW-CV (test code = 788-0) 12.5 % 12.1-15.4 PLT (test code = 777-3) 190 150-328 MPV (test code = 98900-6) 8.7 fL 9.8-13.0 L NRBC/100 WBC (test code = 8866439807) 0.0 0.0-10.0 NRBC x10^3 (test code = 8582536422) See_Comment [Automated messa ge] The system which generated this result transmitted reference range: 10*3/?L. The reference range was not used to interpret this result as normal/abnormal. GRAN MAT (NEUT) % (test code = 770-8) 62.7 % IMM GRAN % (test code = 3123895501) 0.30 % LYMPH % (test code = 736-9) 26.6 % MONO % (test code = 5905-5) 5.7 % EOS % (test code = 713-8) 4.1 % BASO % (test code = 706-2) 0.6 % GRAN MAT x10^3(ANC) (test code = 4397215439) 3.86 10*3/uL 1.99-6.95 IMM GRAN x10^3 (test code = 4773658029) 0.00-0.06 LYMPH x10^3 (test code = 731-0) 1.64 10*3/uL 1.09-3.23 MONO x10^3 (test code = 742-7) 0.35 10*3/uL 0.36-1.02 L EOS x10^3 (test code = 711-2) 0.25 10*3/uL 0.06-0.53 BASO x10^3 (test code = 704-7) 0.04 10*3/uL 0.01-0.09 Lab Interpretation (test code = 60512-0) Abnormal [facility] CenterMEAS,POST-VOID RES,US,[id number] 18:49:00* Test Item Value Reference Range Interpretation Comme nts PVR (URINE VOLUME) (test code = 5193) 82 ml 0-100 [facility] CenterPOCT Urinalysis, [id number] 18:44:00 * Test Item Value Reference Range Interpretation Comme nts POCT U SP GRAV (test code = 3255) 1.005-1.025 POCT PH U (test code = 3254) 5.5 mg/dl 5-8 POCT U LEUK EST (test code = 3263) negative Negative - Negative POCT U NIT (test code = 3262) negative Negative - Negati ve POCT U PROT (test code = 3259) negative Negative - Negat khoi POCT U GLU (test code = 3256) negative Negative - Negati ve POCT U KETONE (test code = 3258) negative Negative - Negative POCT U UROBILI (test code = 3260) 0.2 mg/dl 0.2-1 POCT U BILI (test code = 3261) negative Negative - Negat khoi POCT U BLD (test code = 3257) negative Negative - Negati ve POCT U COLOR (test code = 3266) pool POCT U APPEAR (test code = 3267) clear [facility] CenterCT PELVIS WO [id number] 22:20:39EXAM: CT PELVIS WO CONTRAST ORDERING PROVIDER: CLAUDINE ENCINAS HISTORY: 68 years-old Male; Provided Ordering Indication: severe LUTS, needto assess prostate size prior to ARBOLEDA procedure . TECHNIQUE: Axial CT of the pelvis was performed without intravenouscontrast. Coronal and sagittal reconstructions were obtained. COMPARISON: None FINDINGS: The prostate measures approximately 3.2 x 5.0 x 4.9 cm with an ellipsoidvolume of 41.1 mL. The bladder has slightly hyperdense intraluminal material. Normal appendix is noted. Colonic diverticula are present. No visualized lymphadenopathy is seen. No aggressive osseous lesion is visualized. Moderate left and small rightfat-containing inguinal hernias are pr esent.[facility] CenterBLADDER SCAN [id number] 16:09:00* Test Item Value Reference Range Interpretation Comme nts PVR (URINE VOLUME) (test code = 5193) 82 ml 0-100 [facility] CenterPOCT Urinalysis, [id number] 14:51:00 * Test Item Value Reference Range Interpretation [...] POCT U KETONE (test code = 3258) Trace Negative - Negative A POCT U UROBILI (test code = 3260) 1.0 mg/dl 0.2-1 POCT U BILI (test code = 3261) negative Negative - Negative POCT U BLD (test code = 3257) Trace-Lysed Negative - Negat khoi A POCT U COLOR (test code = 3266) Yellow POCT U APPEAR (test code = 3267) Clear Lab Interpretation (test cod e = 22001-7) Abnormal [facility] CenterMEAS,POST-VOID RES,US,[id number] 21:25:00* Test Item Value Reference Range Interpretation Comme nts PVR (URINE VOLUME) (test code = 5193) 51 ml 0-100 [facility]- XR ELBOW 2 VIEWS [id number] 18:16:00 [facility]Name: RL VASQUEZ : 1955 Sex: M FAX: Rito Randhawa MD [place]: [address] St: DEP Name: RL VASQUEZ [facility] : 1955 Age/S: 68/M [address] [facility] Unit #: [id number] Loc: [facility] [address] Phys: Rito Randhawa MD [place], [place] [address] Acct: [id number] Dis Date: Status: DEP ER PHONE #: Exam Date: 05/28/2024 1649 FAX #: Reason: elbow pain/injury EXAMS: CPT CODE: [id number] [place]BOW [address] [place] [id number] REASON FOR EXAM: elbow pain/injury EXAM ORDER DATE: 05/28/2024 11:51 AM Ordering M.D.: Rito Randhawa MD PROCEDURE: - XR ELBOW 2 VIEWS RT Comparison:None FINDINGS: No acute fracture or dislocation. The elbow jointis appropriately aligned. No joint effusion is appreciated. Soft tissues are within normal limits. IMPRESSION: 1. Negative examination of the right elbow. Location: [facility] at 1816 Reported and signed by: Manjeet Tafoya MD CC: Rito Randhawa MD Technologist: Yair Minor RT(R),CT Trnscrd Date/Time/By: 05/28/2024 (1815) : By: [email or web address] Orig Print D/T: S: 05/28/2024 (6506) PAGE 1 Signed ReportPOCT URINALYSIS, [id number] 18:13:00* Test Item Value Reference Range Interpretation Comme [...] clear Lab Interpretation (test cod e = 23906-1) Normal [facility] CenterPOCT URINALYSIS, [id number] 18:13:00 * Test Item Value Reference Range [...] clear Lab Interpretation (test cod e = 39519-9) Normal [facility] URINALYSIS, [id number] 22:43:00 * Test Item Value Reference Range [...] clear Lab Interpretation (test cod e = 34087-5) Abnormal [facility] URINALYSIS, [id number] 22:43:00 * Test Item Value Reference Range [...] clear Lab Interpretation (test cod e = 59570-5) Abnormal [facility] URINALYSIS, [id number] 22:41:00 * Test Item Value Reference Range [...] U APPEAR (test code = 3267) Clear [facility] URINALYSIS, [id number] 22:41:00 * Test Item Value Reference Range [...] U APPEAR (test code = 3267) Clear [facility] URINALYSIS, [id number] 19:59:00 * Test Item Value Reference Range [...] U APPEAR (test code = 3267) clear [facility] URINALYSIS, [id number] 19:59:00 * Test Item Value Reference Range [...] 3267) clear [facility], [id number] 23:16:00 * Test Item Value Reference Range [...] Clear Lab Interpretation (test cod e = 49045-4) Abnormal [facility] URINALYSIS, [id number] 23:16:00 * Test Item Value Reference Range [...] Clear Lab Interpretation (test cod e = 11398-8) Abnormal [facility] History and Physical Notes Date/Time Note Provider Source 2024-11-22 07:18:06 Urology Pre-Operative History and Physical Update Note Date of Service: 11/22/2024 There have been no significant interval changes in the history or physical examination. See full history and physical for more details. Risks, benefits and alternatives to the procedure were reviewed with the patient again today, and he voiced understanding of the condition present as well as the planned procedure and wishes to proceed. Informed consent was obtained and all questions answered. Diagnosis: BPH, LUTS refractory to medical therapy Patient confirmed consent :HoLEP All questions answered and patient voiced understanding Planned procedure: . LUTS refractory to medical therapy enlarged prostate CT prostate volume 41 cc, cysto showed I counseled patient about options for treating BPH and natural history if not treated ( bladder atony, voiding dysfunction, renal failure, stones recurrent infection, and need for prison catheter) CIC, surgical options: TURP, ThuLVP to alleviate the obstruction and attempt improve LUTS and avoid risk of complications from salvage determiner ARBOLEDA. Possible adverse events recognized with TURP and ThuLVP include and not limited to ( pain, bleeding, infection, injury to surrounding structures, erectile dysfunction, urinary incontinence, retrograde ejaculation, stricture formation, inability to void/retention, prostatic regrowth, need for additional procedures). HoLEP : , risk of complications mainly damage to bladder ( perforation, , need to reconstruct). pain, bleeding, infection, injury to surrounding structures, need for prolonged catheter , failure to remove all prostate, need for additional procedures Patient may experience urgency, transient GALILEO/ UUI or ANNELIESE, if persistent may need further medical or surgical therapy ( rare) Patient confirmed consent for HoLEP, planned IPP in 4-6 weeks Claudine Encinas MD [employer] Source Note - Claudine Encinas MD - 11/15/2024 3:30 PM [employer] Urology Clinic Note / History and Physical Referred by: Est Chief Complaint: I was asked to give my opinion regarding Rl Vasquez is a 69 year old male who presents with LUTS History of Present Illness 11/15/2024: Here for follow up , reported persistent LUTS Intermittent right buttock and hip, radiating to right calf, not severe and not affecting QoL, occasionally exacerbated by working long days and walking 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 No lesions or masses were seen. The prostate appeared obstructive bilobar. Clear efflux drained from both ureteral orifices. The bladder had increased capacity, trabeculation ++, no tics or stones. The patient tolerated the procedure well. There were no complications in this procedure. PVR : 82 cc Histories No past medical history on file. Past Surgical History: Procedure Laterality Date PHACOEMULSIFICATION OF CATARACT WITH INTRAOCULAR LENS IMPLANT Left 01/06/2023 Surgeon: Amalia Fraga MD; Location: [facility] [place] Family History Problem Relation Age of Onset Diabetes Mother Cancer Father Social History Socioeconomic History Marital status: Spouse name: Not on file Number of children: Not on file Years of education: Not on file Highest education level: Not on file Occupational History Not on file Tobacco Use Smoking status: Former Smokeless tobacco: Never Substance and Sexual Activity Alcohol use: Not on file Drug use: Not on file Sexual activity: Not on file Other Topics Concern Not on file Social History Narrative Not on file Social Determinants of Health Financial Resource Strain: Not on file Food Insecurity: Not on file Transportation Needs: Not on file Physical Activity: Not on file Stress: Not on file Social Connections: Not on file Housing Stability: Not on file Allergies No Known Allergies Review of Systems Constitutional: negative Eyes: negative Ears, nose, mouth, throat: negative Cardiovascular: negative Respiratory: negative Gastrointestinal: negative Genitourinary: (+) per HPI Musculoskeletal: negative Integumentary: negative Neurological: negative Psychiatric: negative Endocrine: negative Hematologic/Lymphatic: negative Allergic/Immunologic: negative, allergies listed above Physical Examination Blood pressure 129/75, pulse 79, temperature 35.9 ?C (96.7 ?F), temperature source Temporal Artery, resp. rate 20, weight 244 lb (110.7 kg), SpO2 93%. Constitutional: healthy, no acute distress Eyes: normal external eye, conjunctiva and sclera normal Ears, nose, mouth, throat: normocephalic, moist mucous membranes Cardiovascular: regular rate and rhythm Respiratory: respirations unlabored on room air Gastrointestinal: deferred Genitourinary: deferred Musculoskeletal: no clubbing, cyanosis or edema Skin: no rashes Neurologic: alert and oriented x3 Psychiatric: appropriate mood and affect Hematologic: no bruising Laboratory Per HPI Latest Reference Range & Units 09/08/24 08:57 HGB 12.2 - 16.4 g/dL 16.6 (H) HCT 38.4 - 49.3 % 49.6 (H) (H): Data is abnormally high Latest Reference Range & Units 09/08/24 08:57 CREATININE 0.60 - 1.25 mg/dL 0.74 eGFR mL/min/1.73m2 98.7 Latest Reference Range & Units 09/08/24 08:57 HGB A1C 4.0 - 5.7 % 6.1 (H) (H): Data is abnormally high Radiology CT PELVIS WO CONTRAST Result Date: 08/03/2024 The prostate measures approximately 3.2 x 5.0 x 4.9 with an ellipsoid volume of 41.1 mL. Questionably increased heterogeneity of the urinary bladder contents that may represent dense urine although blood products or soft tissue cannot be reliably excluded. Procedure Note PVR : 32 cc Assessment Rl Vasquez is a 69 year old male with: 1.. LUTS refractory to medical therapy enlarged prostate CT prostate volume 41 cc, cysto showed I counseled patient about options for treating BPH and natural history if not treated ( bladder atony, voiding dysfunction, renal failure, stones recurrent infection, and need for salvage determiner catheter) CIC, surgical options: TURP, ThuLVP to alleviate the obstruction and attempt improve LUTS and avoid risk of complications from salvage determiner ARBOLEDA. Possible adverse events recognized with TURP and ThuLVP include and not limited to ( pain, bleeding, infection, injury to surrounding structures, erectile dysfunction, urinary incontinence, retrograde ejaculation, stricture formation, inability to void/retention, prostatic regrowth, need for additional procedures). Trial of medical therapy Tamsulosin 0.4 mg BID. Discussed usage and side-effects including dizziness, orthostatic hypotension ( drop in blood pressure) , falls, fatigue, nasal congestion and retrograde/ anejaculation ejaculation Prostatic Urethral Lift ( UroLift) Robotic Laparoscopic Assisted Simple Prostatectomy for large glands ThuLVP has comparable outcomes when compared with the gold standard TURP, in addition to less risk of bleeding, catheterization time and need for hospitalization. HoLEP : , risk of complications mainly damage to bladder ( perforation, , need to reconstruct). pain, bleeding, infection, injury to surrounding structures, need for prolonged catheter , failure to remove all prostate, need for additional procedures Patient may experience urgency, transient GALILEO/ UUI or ANNELIESE, if persistent may need further medical or surgical therapy ( rare) Patient opted for HoLEP 11/22/2024 UP TO DATE CBC, bmp Ucx Consented as above 2. Intermittent right buttock and hip, radiating to right calf, not severe and not affecting QoL, occasionally exacerbated by working long days and walking Offered to orthopedics to assess for sciatica , already pending referral by PCP 3. ED non responsive to PDE5is I counseled the patient regarding considering a trial of. Second line options to be considered : Vacuum Erection Device (CHERISE) with a penile ring, CHERISE is a non-invasive modality. Although it is easy to use some men can find it cumbersome, we advise patients to consider it as part of the sexual act. It should not be used for more than 30 mins, and it may cause bruising and interfere with ejaculation. The other second line option is IntraCavernosal Injections(ICI) with vasoactive agents to induce an erection. Patient will be trained in clinic on how inject his penis safely. Once the appropriate dose is decided and with correct injection technique, ICI produces reliable response in over than 90% of cases. Nevertheless, ICI has well known complications including: penile pain in around 7-10% of patients if very severe then ICI must be stopped, around 1-3 % risk of bleeding, pain, infection and scarring from repeated injections. The most serious complication from ICI is priapism which is a prolonged erection not related to sexual stimulation that lasts more than 3 hours, it is a medical emergency and the patient will have required to attend ER, as prolonged erection can result in worse erectile dysfunction and fibrosis in the penis. The third line option should be considered which is Inflatable Penile Prosthesis (IPP), it is a well established treatment options and in experienced hands the satisfaction rate is more than 93%, patient will be always dependent on the device to have an erection and 10 years after surgery 93% of patients retain their devices. IPP surgery is associated with pain, bleeding, pain and infection 1-3%. There is an element of penile shortening after surgery, but with no change is penile sensation or sexual experience. IPP is an excellent option when second line options fail (CHERISE, ICI). The procedure is usually performed under general or spinal anaesthetic, the actual surgery is about 60-90 minutes and the patient stay in hospital overnight and goes home the following morning. We advise patient to avoid any strenuous physical activity for 10-14 days after surgery, and to attend the clinic in 2 weeks for wound check and 6 weeks for device activation, after which the patient can use the device. Option of proceeding first with a penile duplex Doppler ultrasound was also discussed with the patient. Penile duplex Doppler ultrasound risks including pain at injection, hematoma, priapism, device malfunction were discussed with the patient. He will be scheduled for the procedure After an extended discussion, he opted to proceed with PDDU 4-6 weeks after HOLEP, I counseled patient that HoLEP is not related to ED, which will be addressed separately accordingly The penile prosthesis is a highly successful treatment for erectile dysfunction, with satisfaction rates exceeding 86%. However, all surgical procedures are associated with some degree of risk. Below are listed the potential risks and problems that can occur with insertion of a penile prosthesis (also called an implant ). 1. Mechanical failure. The most recent studies report that mechanical failure occurs in 5 to 10% of cases within 10 years. Mechanical failure is usually due to loss of fluid and requires replacement of the implant to restore function. 2. Infection. Infection rates are approximately <1-2% for new implants and slightly higher for re-operations. Infection requires removal of the prosthesis. A new implant can be replaced immediately or after a period of healing, depending on circumstances. 3. Bleeding. This procedure is not associated with a substantial risk of excessive bleeding, however it must be recognized that unexpected bleeding can occur with all operations, and when severe it may require a blood transfusion. This risk is extremely small for this operation. 4. Chronic pain or discomfort. After the recovery period, the vast majority of men experience no unpleasant sensation at all from their penile prosthesis. However, all operations create some risk of long-term pain or discomfort. 5. Decreased penile length or thickness. While there is a perception that there is a loss in penile length after penile prosthesis placement, recent studies actual do not find this to be true. There is essentially no significant difference in penile length just prior to and after placement of a penile prosthesis. The reduction of penile length has typically already occurred prior to penile prosthesis placement. Reduced length or thickness occurs most commonly from reduced elasticity of the tissues of the penis over time, atrophy of the penile tissue, scar tissue, prior surgery and weight gain. As a rule, your surgeon will place the largest device that fits properly within the penis. 6. Reduced sensation (feeling) in the penis. This is rare. Standard techniques to insert the penile prosthesis avoid the nerves responsible for feeling in the penis. 7. Change in shape. The overall shape or configuration of the penis is rarely altered as a result of placement of any type of prosthesis. But unidentified scar tissue may cause curvature, an indentation, or other deformities in the shape of the penis. In addition, when the implant is deflated (soft), it is often possible to feel the material of the implant inside the penis. 8. Device erosion or migration. A rare complication is that the device may move out of proper position, may push into the urine passageway (urethra), or may become visible through the skin of the scrotum. These cases require an operation to correct the position of the device, or may require its removal. This problem occurs in <1% of cases. 9. Injury to the penis, urethra, bladder, intestines, or other internal structures. These complications are extremely rare, but can occur with any operation in this region of the body, and may lead to loss of tissue, changes in urination or bowel habits, and may require surgical or other treatments. Patient opted for PDDU Plan - as above - PCP clearance I spend a Total Time of 30 minutes. The time spent for patient care includes: PreCharting (eg, review of tests, notes, etc.), Obtaining and/or reviewing separately obtained history (Care Everywhere or paper records), Performing a medically appropriate examination and/or evaluation, Counseling and educating the patient/family/caregiver, Ordering medications, tests, or procedures, Ordering referrals and/or communicating with other health manager medicare marketing (when not separately reported), Documenting clinical information in the electronic or other health record and Care coordination (not separately reported). Claudine Encinas MD [facility] Procedure Notes Date/Time Note Provider Source 2024-11-22 07:22:57 Full Operative Note Patient name: Rl Vasquez Number: [id number] Date of operation: 11/22/2024 Faculty surgeon: Claudine Encinas Pre-operative diagnosis: BPH with LUTS refractory to medical therapy, CT prostate volume 41 , PSA (ng/mL) Date Value 07/14/2024 1.87 01/10/2023 1.99 Post-operative diagnosis: BPH with LUTS Operation performed: Transurethral Laser Enucleation of the Prostate (CPT - 14285) Findings: Normal urethra and bladder mucosa. No lesions or masses were seen. The prostate appeared obstructive bilobar with no median lobe . Clear efflux drained from both ureteral orifices and preserved by the end of the case after enculating adenoma. The bladder had increased capacity, ++ trabeculation, no tics, or stones . The patient tolerated the procedure well. There were no complications in this procedure. Enculation time :9 mins Hemostasis time :6 mins Morcellation time :3 mins Laser time :10:59 mins Prostate chips : 16.0 g The patient was taken to the OR where a timeout was performed amongst all operative staff. GETA was administered per anesthesiology and the patient was given Ancef as a nell-procedural antibiotic. The patient was then positioned in dorsal lithotomy position and prepped/draped in the usual sterile fashion. The meatus was initially calibrated from 18 to 30 Fr sequentially with [place] urethral sounds. A resectoscope with a visual obturator was then advanced per urethra into the bladder and the bladder was emptied. A laser bridge was then introduced and a 550 micron Holmium laser was introduced. The prostate was noted to be large and Bi-lobar in appearance. No suspicious lesions or masses were noted within the bladder. Beginning at the level of the verumontanum, the prostate was systematically enucleated. Enucleation was initiated posteriorly near the apex and continued laterally before advancing the enucleation anteriorly. After the anterior enucleation plane was created, the bladder was entered and the bladder neck was incised bilaterally until the anterior and posterior enucleation planes were join. The remaining posterior attachments were then then incised until the prostatic adenoma had been fully enucleated. The prostatic adenoma was then advanced into the bladder lumen and a transurethral morcellator was introduced. The prostatic adenoma was fully morcellated and evacuated from the bladder. Final cystoscopy demonstrated no evidence of residual adenoma within the bladder or prostatic fossa. Hemostasis was achieved with the laser fiber. All instrumentation was then removed and a 22 Fr 3-way catheter was advanced per urethra into the bladder with 30 cc of sterile water in the catheter balloon. CBI was initiated with clear output. This concluded the procedure, there were no complications. The patient was safely extubated and transferred to PACU in stable condition. Complications: none Estimated blood loss: 50 mL Specimens: prostate chips Drains: none Patient's Condition: stable to PACU Claudine Encinas MD [facility]
[2024-11-25 20:48] LABS: Absolute Eosinophils 0.3 K/uL (0-0.5); Absolute Lymphocytes (CBC) 1.5 K/uL (0.7-4.9); Absolute Monocytes 0.8 K/uL (0.1-1.3); Absolute Neutrophil 11.7 K/uL (1.8-8.0); Basophils % 0.3 % (0-1.3); Eosinophils % 1.9 % (0-4.4); Hematocrit 49.4 % (39.6-49.0); Hemoglobin 17.2 g/dL (13.6-17.9); Lymphocytes % 10.7 % (15.3-44.8); MCH 30.4 pg (27.0-35.0); MCHC 34.8 g/dL (32.0-36.0); MCV 87.4 fL (80-100); MPV 7.1 fL (7.6-11.3); Monocytes % 5.7 % (3.3-12.3); Neutrophils % 81.4 % (41.7-73.7); Platelets 235 thou/uL (152-406); RBC Red Blood Cell Count 5.65 M/uL (4.33-5.43); Red Cell Distribution Width 13.6 % (12.1-15.2)
[2024-11-25 21:01] LABS: Albumin 3.7 g/dL (3.4-5.0); Anion Gap 10.1 mEq/L (5.0-15.0); Bilirubin Total 0.4 mg/dL (0.2-1.0); Globulin 3.8 g/dL (2.3-3.5); Potassium 4.1 mEq/L (3.5-5.1); Protein, Total 7.5 g/dL (6.4-8.2)
--- NOTE | 2024-11-25 21:04 | RAD REPORT ---
EXAMINATION: CT Abdomen Pelvis Wo Contrast CLINICAL INDICATION: Male, 69 years old. CONSTIPATION TECHNIQUE: CT abdomen and pelvis was performed, without IV contrast, as per department protocol. Axia l, sagittal and coronal reconstructions were obtained. One or more of the following dose reduction techniques were used: Automated exposure control, adjustment of the mA and kV according to the patien t size, and iterative reconstruction. Unless otherwise specified, incidental findings do not require dedicated imaging follow-up. COMPARISON: Lumbar spine CT 03/12/2024 FINDINGS: The lack of intravenous contrast limits the sensitivity of this exam for evaluation of solid visceral organs, vascular structures, and retroperitoneum. LOWER CHEST: The visualized lung bases are clear. LIVER: Normal in size and contour. No focal lesion. BILIARY SYSTEM: No suspicious abnormalities. SPLEEN: Normal size. No focal lesion. PANCREAS: No mass, ductal dilation, or nell-pancreatic fluid. ADRENALS: Normal; no mass. KIDNEYS AND URETERS: Normal size and contour. No hydronephrosis. Small left renal parapelvic cysts URINARY BLADDER: Decompressed with Branham catheter in place. GASTROINTESTINAL TRACT: No evidence of bowel obstruction, significant free fluid, free air or abscess . Mild burden of formed stool along the sigmoid colon and rectum. Fluid opacification of nondistended ascending through transverse colon, nonspecific. APPENDIX: Normal appendix. LYMPH NODES: No lymphadenopathy. MUSCULOSKELETAL: No acute or suspicious osseous abnormality. ADDITIONAL FINDINGS: Left inguinal hernia containing fat. IMPRESSION: Fluid opacification of nondistended ascending through transverse colon, nonspecific, may relate to di arrheal state. Mild stool burden within the sigmoid colon and rectum. No other acute or concerning abnormalities in the abdomen or pelvis, with evaluation limited by lack of IV contrast. Other incidental findings as above.
[2024-11-25] MEDS ORDERED: FLEET ENEMA ADULT PR ONE (22:09)
--- NOTE | 2024-11-25 22:20 | ER ---
Nurse's Notes [facility] Name: Rl Day Age: 69 yrs Sex: Male : 1955 Arrival Date: 11/25/2024 Time: 18:49 Bed 13 Private MD: Diagnosis: Constipation Presentation: 11/25 19:10 Chief complaint: Patient states: PT STATES HASN'T HAD A BM SINCE SURGERY ON TUESDAY br2 (PROSTATE), HAS URGE BUT UNABLE TO GO. PAIN TO UMBILICAL AND RECTUM. HAS TRIED MOM, COLACE AND PRUNE JUICE. NO ISSUES WITH URINATION. Coronavirus screen: Client denies travel out of the [place] in the last 14 days. Ebola Screen: Patient denies exposure to infectious person. Initial Sepsis Screen: Does the patient meet any 2 criteria? No. Patient's initial sepsis screen is negative. Does the patient have a suspected source of infection? No. Patient's initial sepsis screen is negative. Risk Assessment: Do you want to hurt yourself or someone else? Patient reports no desire to harm self or others. Onset of symptoms was November 22, 2024. 19:10 Method Of Arrival: Wheelchair br2 19:10 Acuity: ZAHRA 3 br2 Historical: - Allergies: 19:14 No Known Allergies; br2 - PMHx: 19:14 None; br2 - Immunization history:: Adult Immunizations up to date. - Infectious Disease History:: Denies. - Social history:: Smoking status: Patient/guardian denies using tobacco, but has a distant history of tobacco abuse. Screenin:20 [facility] ED Fall Risk Assessment (Adult) History of falling in the last 3 months, rg5 including since admission No falls in past 3 months (0 pts) Confusion or Disorientation No (0 pts) Intoxicated or Sedated No (0 pts) Impaired Gait No (0 pts) Mobility Assist Device Used No (0 pt) Altered Elimination No (0 pt) Score/Fall Risk Level 0 - 2 = Low Risk Oriented to surroundings, Maintained a safe environment, Hourly rounding (assess needs \T\ fall precautionary measures) done. Abuse screen: Denies threats or abuse. Nutritional screening: No deficits noted. Tuberculosis screening: No symptoms or risk factors identified. Assessment: 20:20 General: Appears in no apparent distress. Behavior is calm, cooperative. rg5 20:20 Pain: Complains of pain in abdomen Pain began 2-3 days ago. Neuro: Level of rg5 Consciousness is awake, alert, obeys commands, Oriented to person. Cardiovascular: Patient's skin is warm and dry. Respiratory: Airway is patent Trachea midline Respiratory effort is even, unlabored, Respiratory pattern is. GI: Abdomen is round obese, Bowel sounds present in left upper quadrant Abd is rigid. : No signs and/or symptoms were reported regarding the genitourinary system. EENT: No deficits noted. Derm: Skin is intact, Skin is dry, Skin is normal, Skin temperature is warm. Musculoskeletal: Circulation, motion, and sensation intact. Range of motion: intact in all extremities. 21:00 Reassessment: No changes from previously documented assessment. Patient and/or family rg5 updated on plan of care and expected duration. Pain level reassessed. Patient is alert, oriented x 3, equal unlabored respirations, skin warm/dry/pink. 22:44 Reassessment: Patient and/or family updated on plan of care and expected duration. Pain rg5 level reassessed. Patient is alert, oriented x 3, equal unlabored respirations, skin warm/dry/pink. Patient states feeling better. Patient states symptoms have improved. Vital Signs: 19:10 BP 151 / 120; Pulse 85; Resp 18; Temp 97.2; Pulse Ox 96% ; Weight 108.86 kg; Height 5 br2 ft. 10 in. ; Pain 10/10; 20:52 BP 129 / 87; Pulse 77; Resp 17; Pulse Ox 96% on R/A; Pain 5/10; rg5 21:00 BP 136 / 87; Pulse 84; Resp 17; Pulse Ox 100% on R/A; rg5 22:00 BP 128 / 81; Pulse 78; Resp 17; Pulse Ox 96% on R/A; rg5 19:10 Body Mass Index 34.44 (108.86 kg, 177.8 cm) br2 19:10 Pain Scale: Adult br2 20:52 Pain Scale: Adult rg5 [place] Coma Score: 20:20 Eye Response: spontaneous(4). Motor Response: obeys commands(6). Verbal Response: rg5 oriented(5). Total: 15. ED Course: 18:50 Patient arrived in ED. al6 19:03 Adia Carcamo FNP-C is [facility]. kb 19:03 Manjinder Wiley MD is Attending Physician. kb 19:13 Triage completed. br2 20:08 Ayo Torres, RN is Primary Nurse. rg5 20:20 No provider procedures requiring assistance completed. Inserted saline lock: 20 gauge rg5 in left forearm, using aseptic technique. Blood collected. Flushed with 10 mL NS. 20:20 Patient has correct armband on for positive identification. Bed in low position. Door rg5 closed. Noise minimized. Verbal reassurance given. 20:20 Arm band placed on right wrist. rg5 20:21 Missed attempt(s): 20 gauge in right antecubital area. vk 20:44 CT Abd/Pelvis - Without Contrast In Process Unspecified. EDMS 22:44 IV discontinued, bleeding controlled, No redness/swelling at site. Pressure dressing rg5 applied. 22:45 Provided Education on: post er care done. rg5 Administered Medications: 21:55 Drug: Fleet Enema VA 133 ml VA once; may repeat once Route: VA; rg5 22:48 Follow up: Response: No adverse reaction rg5 Medication: 20:20 VIS not applicable for this client. rg5 Outcome: 22:20 Discharge ordered by . kb 22:44 Discharged to home ambulatory, rg5 22:44 Condition: stable 22:44 Discharge instructions given to patient, 22:48 Patient left the ED. rg5 Signatures: Dispatcher [employer] EDME Adia Carcamo FNP-C DIET AIDE-Ckb Ivis Bruno Rommel, RN RN rg5 Louise Bautista RN RN br2 Eliza Pabon al6
--- NOTE | 2024-11-25 22:21 | EDPHYS ---
Physician Documentation [facility] Name: Rl Day Age: 69 yrs Sex: Male : 1955 Arrival Date: 11/25/2024 Time: 18:49 Bed 13 Private MD: ED Physician Manjinder Wiley HPI: 11/25 19:13 This 69 yrs old Male presents to ER via Unassigned with complaints of kb Constipation. 19:13 Pt is a 69 year old male who presents for abd pain and constipation. States he hasn't kb had a BM in 4 days. Pt had surgery on his prostate 4 days ago as well, has oliveros in place. States everything from surgery has been fine, he just hasn't been able to have a bowel movement. states he feels like he needs to. Has taken colace and eaten prunes with no relief. . Historical: - Allergies: 19:14 No Known Allergies; br2 - PMHx: 19:14 None; br2 - Immunization history:: Adult Immunizations up to date. - Infectious Disease History:: Denies. - Social history:: Smoking status: Patient/guardian denies using tobacco, but has a distant history of tobacco abuse. ROS: 19:12 Constitutional: As per HPI kb Exam: 19:12 Constitutional: This is a well developed, well nourished patient who is awake, alert, kb and in no acute distress. Head/Face: Normocephalic, atraumatic. ENT: Moist Mucous membranes Cardiovascular: Regular rate Respiratory: Respirations even and unlabored. No increased work of breathing. Talking in full sentences Skin: Warm, dry with normal turgor. Normal color. MS/ Extremity: Pulses equal, no cyanosis. Neurovascular intact. Full, normal range of motion. Neuro: Awake and alert, GCS 15, oriented to person, place, time, and situation. 19:12 Abdomen/GI: Inspection: abdomen appears normal, Bowel sounds: normal, Palpation: soft, in all quadrants, mild abdominal tenderness, in the suprapubic area and left lower quadrant, Vital Signs: 19:10 BP 151 / 120; Pulse 85; Resp 18; Temp 97.2; Pulse Ox 96% ; Weight 108.86 kg; Height 5 br2 ft. 10 in. ; Pain 10/10; 20:52 BP 129 / 87; Pulse 77; Resp 17; Pulse Ox 96% on R/A; Pain 5/10; rg5 21:00 BP 136 / 87; Pulse 84; Resp 17; Pulse Ox 100% on R/A; rg5 22:00 BP 128 / 81; Pulse 78; Resp 17; Pulse Ox 96% on R/A; rg5 19:10 Body Mass Index 34.44 (108.86 kg, 177.8 cm) br2 19:10 Pain Scale: Adult br2 20:52 Pain Scale: Adult rg5 [place] Coma Score: 20:20 Eye Response: spontaneous(4). Motor Response: obeys commands(6). Verbal Response: rg5 oriented(5). Total: 15. MDM: 19:03 Medical Screening Exam initiated kb 19:13 Data reviewed: vital signs, nurses notes. kb 21:47 Differential diagnosis: constipation, bowel obstruction. Historians other than the kb Patient: Spouse/Significant Other: . Counseling: I had a detailed discussion with the patient and/or guardian regarding the historical points, exam findings, and any diagnostic results supporting the discharge/admit diagnosis, lab results, radiology results, the need for outpatient follow up, a family practitioner, to return to the emergency department if symptoms worsen or persist or if there are any questions or concerns that arise at home. 22:49 Response to treatment: the patient's symptoms have resolved after treatment, pt had BM kb after enema. 11/25 19:12 Order name: CBC with Diff; Complete Time: 20:51 kb 11/25 19:12 Order name: CMP; Complete Time: 21:03 kb 11/25 19:12 Order name: Lipase; Complete Time: 21:03 kb 11/25 19:12 Order name: CT Abd/Pelvis - Without Contrast; Complete Time: 21:07 kb 11/25 19:12 Order name: IV Saline Lock; Complete Time: 20:29 kb 11/25 19:12 Order name: Labs collected and sent; Complete Time: 20:29 kb Administered Medications: 21:55 Drug: Fleet Enema MD 133 ml MD once; may repeat once Route: MD; rg5 22:48 Follow up: Response: No adverse reaction rg5 Disposition Summary: 11/25/24 22:20 Discharge Ordered Notes: Location: Home kb Condition: Stable kb Diagnosis - Constipation kb Followup: kb - With: Emergency Department - When: As needed - Reason: Worsening of condition Followup: kb - With: Private Physician - When: 2 - 3 days - Reason: Recheck today's complaints, Continuance of care, Re-evaluation by your physician Discharge Instructions: - Discharge Summary Sheet kb - Constipation, Adult, [id number] kb Forms: - Medication Reconciliation Form kb - Antibiotic Education kb - Prescription Opioid Use kb - Patient Portal Instructions kb - Leadership Thank You Letter kb Addendum: 12/03/2024 09:11 I was immediately available for consultation during this patient's visit. I did not e c2 personally see the patient or discuss the patient with the ALEXIA. . Signatures: Dispatcher [employer] Adia Sears, ASSOCIATE ENTERTAINMENT EDITOR-C ASSOCIATE ENTERTAINMENT EDITOR-Manjinder Nazario MD MD ec2 Ayo Torres, RN RN rg5 Louise Bautista RN RN br2
[2024-11-27 16:19] VITALS: BP 128/81; TEMP 97.2; O2SAT 96
== END 2024-11-25 22:48 | disposition home or self-care (01) ==
LOC: ER 18:49
DX: K59.00 Constipation, unspecified (principal)
CPT/HCPCS: 36415; 74176; 80053; 83690; 85025; 99284